=== PATIENT | male | born 1965 | race Caucasian/White ===

== ENCOUNTER 2019-07-29 08:40 | Inpatient (IN) | payer BC ==
--- NOTE | 2019-07-29 09:05 | EDM.PDOC ---
"ED HPI GENERAL MEDICAL PROBLEM - General Chief Complaint: Abdominal Pain Stated Complaint: LOWER LEFT SIDE PAIN Time Seen by Provider: 07/29/19 08:55 Source of Information: Reports: Patient, Old Records, RN, RN Notes Reviewed History Limitations: Reports: No Limitations - History of Present Illness INITIAL COMMENTS - FREE TEXT/NARRATIVE: Pt presents to ER from home by POV with c/o left sided abdominal pain x4 days. The pain has been getting progressively worse. He denies blood or mucus in the stool, fever, chills, N/V/D/C, dysuria, hematuria, or flank pain. Pt reports he was admitted to a hospital in [facility] a couple of weeks ago where he was treated for pneumonia. He states that he tested negative for Covid virus at that time. He admits that he has had increasing shortness of breath today, and for the last few days he can hear his lungs crackle when he exhales. He reports Hx of DM Type 2, CAD, HTN, obesity, testicular cancer, diverticulitis, cholecystectomy, left orchectomy, exploratory abdominal laparotomy. Onset: Gradual Onset Date: 07/25/19 Duration: Constant, Getting Worse Location: Reports: Chest, Abdomen Quality: Reports: Ache Severity: Severe Improves with: Reports: Immobilization, Rest Worsens with: Reports: Movement Associated Symptoms: Reports: No Other Symptoms Left Lower Abdomen Pain Score (Numeric/FACES): 8 - Related Data Allergies Allergy/AdvReac Type Severity Reaction Status Date / Time morphine Allergy Severe unknown Verified 07/29/19 08:48 lisinopril Allergy Intermediate unknown Verified 07/29/19 08:48 contrast dye Allergy Severe unknown Uncoded 07/29/19 08:48 Home Meds: Home Meds metFORMIN HCl [Metformin HCl] 1,000 mg PO 07/20/19 [History] Clopidogrel Bisulfate [Clopidogrel] 75 mg PO DAILY 07/29/19 [History] Escitalopram [Lexapro] 10 mg PO DAILY 07/29/19 [History] Furosemide 40 mg PO DAILY 07/29/19 [History] Insulin Asp Prot/Insulin Asp [NovoLOG Mix 70-30] 60 unit SQ ASDIRECTED 07/29/19 [History] Isosorbide Mononitrate [Imdur] 30 mg PO DAILY 07/29/19 [History] LORazepam [Lorazepam] 1 mg PO DAILY 07/29/19 [History] Potassium Chloride 20 meq PO DAILY 07/29/19 [History] Rosuvastatin Calcium 20 mg PO DAILY 07/29/19 [History] Tamsulosin HCl 0.4 mg PO DAILY 07/29/19 [History] amLODIPine Besylate [Amlodipine Besylate] 10 mg PO DAILY 07/29/19 [History] Past Medical History HEENT History: Reports: Impaired Vision Cardiovascular History: Reports: Angina, CAD, High Cholesterol, Hypertension Gastrointestinal History: Reports: Cholelithiasis, Diverticulosis Genitourinary History: Reports: BPH, Prostate Disorder Psychiatric History: Reports: Anxiety, Depression Endocrine/Metabolic History: Reports: Diabetes, Type II, IDDM, Obesity/BMI 30+ Oncologic (Cancer) History: Reports: Other (See Below) (Testicular cancer, left testicle) - Past Surgical History GI Surgical History: Reports: Cholecystectomy, Other (See Below) (Exploratory laparotomy with lymph node biopsy) Male Surgical History: Reports: Other (See Below) (Left orchectomy) Social & Family History - Family History Family Medical History: Noncontributory - Alcohol Use Alcohol Use History: Yes Alcohol Use Frequency: Weekly - Recreational Drug Use Recreational Drug Use: No - Living Situation & Occupation Living situation: Reports: Single ED ROS GENERAL - Review of Systems Review Of Systems: Comprehensive ROS is negative, except as noted in HPI. ED EXAM, GI/ABD - Physical Exam Exam: See Below Exam Limited By: No Limitations General Appearance: Alert, WD/WN, No Apparent Distress, Obese, Other ( Uncomfortable appearing). No: Active Emesis Eyes: Bilateral: Normal Appearance (No scleral icterus) Throat/Mouth: Normal Inspection, Normal Lips, Normal Voice, No Airway Compromise Head: Atraumatic, Normocephalic Neck: Normal Inspection Respiratory/Chest: No Respiratory Distress, No Accessory Muscle Use, Chest Non- Tender, Crackles, Rales, Rhonchi. No: Wheezing, Stridor Cardiovascular: Regular Rate, Rhythm, Tachycardia GI/Abdominal Exam: Normal Bowel Sounds, Soft, No Distention, No Abnormal Bruit, Tender (Acutely tender to palpation at LUQ and LLQ), Other (Obese abdomen). No : Guarding, Rigid, Rebound (Male) Exam: Deferred Rectal (Males) Exam: Deferred Back Exam: Normal Inspection, Full Range of Motion Extremities: Normal Inspection Neurological: Alert, Oriented, Normal Gait, No Motor/Sensory Deficits Psychiatric: Normal Mood Skin Exam: Warm, Dry, Intact, Normal Color, No Rash Course - Vital Signs Last Recorded V/S: Last Vital Signs Temp 97.7 F 07/29/19 09:04 Pulse 106 H 07/29/19 12:04 Resp 20 07/29/19 09:04 BP 162/89 H 07/29/19 09:04 Pulse Ox 94 L 07/29/19 09:04 - Orders/Labs/Meds Orders: Active Orders 24 hr Category Date Time Status Blood Glucose Check, Bedside [RC] ONETIME Care 07/29/19 11:10 Active Peripheral IV Care [RC] . DIRECTED Care 07/29/19 09:19 Active RT Aerosol Therapy [] ASDIRECTED Care 07/29/19 11:42 Active Abdomen Pelvis wo Cont [CT] Urgent Exams 07/29/19 09:20 Taken Chest wo Cont [CT] Stat Exams 07/29/19 09:56 Ordered CULTURE BLOOD [BC] Stat Lab 07/29/19 09:14 Results CULTURE STREP A CONFIRMATION [] Stat Lab 07/29/19 11:33 Results STREP SCRN A RAPID W CULT CONF [] Stat Lab 07/29/19 11:33 Results Azithromycin [Zithromax] 500 mg Med 07/29/19 11:12 Active Sodium Chloride 0.9% [Normal Saline (AdvBag)] 250 ml IV ONETIME Sodium Chloride 0.9% [Saline Flush] Med 07/29/19 09:19 Active 10 ml FLUSH ASDIRECTED PRN Isolation [COMM] Routine Oth 07/29/19 10:59 Active Peripheral IV Insertion Adult [OM.PC] Stat Oth 07/29/19 09:18 Ordered Medication Orders Azithromycin 500 mg/ Sodium (Chloride) 250 mls @ 250 mls/hr IV ONETIME ONE Stop: 07/29/19 12:11 Last Admin: 07/29/19 11:22 Dose: 250 mls/hr Sodium Chloride (Saline Flush) 10 ml FLUSH ASDIRECTED PRN PRN Reason: Keep Vein Open Last Admin: 07/29/19 09:29 Dose: 10 ml Labs: Laboratory Tests 07/29/19 07/29/19 07/29/19 Range/Units 09:04 09:14 09:14 WBC 9.8 (5.0-10.0) 10^3/uL RBC 4.23 L (4.6-6.2) 10^6/uL Hgb 11.1 L (14.0-18.0) g/dL Hct 34.1 L (40.0-54.0) % MCV 80.6 (80-100) fL MCH 26.2 L (27.0-34.0) pg MCHC 32.6 L (33.0-35.0) g/dL Plt Count 325 (150-450) 10^3/uL Neut % (Auto) 78.5 H (42.2-75.2) % Lymph % (Auto) 9.9 L (20.5-50.1) % Bertie % (Auto) 8.9 H (2-8) % Eos % (Auto) 2.5 (1.0-3.0) % Baso % (Auto) 0.2 (0.0-1.0) % PT (9.0-12.0) SEC INR (0.9-1.2) APTT (22.0-34.0) SEC D-Dimer, Quantitative (0-400) ng/mL Sodium 134 L (136-145) mmol/L Potassium 4.4 (3.5-5.1) mmol/L Chloride 98 (98-107) mmol/L Carbon Dioxide 30 (21-32) mmol/L Anion Gap 10.4 (7-13) mEq/L BUN 26 H (7-18) mg/dL Creatinine 1.68 H (0.70-1.30) mg/dL Est Cr Clr Drug Dosing 44.31 mL/min Estimated GFR (MDRD) 42 BUN/Creatinine Ratio 15.5 (No establ ref range) Glucose 301 H (74-99) mg/dL Lactic Acid (0.4-2.0) mmol/L Calcium 8.7 (8.5-10.1) mg/dL Ferritin (26-388) mg/mL Total Bilirubin 0.3 (0.2-1.0) mg/dL AST 9 L (15-37) U/L ALT 14 L (16-63) U/L Alkaline Phosphatase 91 (46-116) U/L Lactate Dehydrogenase (85-227) U/L Creatine Kinase (39-308) U/L Troponin I (0.000-0.056) ng/mL C-Reactive Protein 14.6 H (0.0-0.9) mg/dL B-Natriuretic Peptide (0-100) pg/ml Total Protein 6.8 (6.4-8.2) g/dL Albumin 2.6 L (3.4-5.0) g/dL Globulin 4.2 Albumin/Globulin Ratio 0.62 Amylase 25 (25-115) U/L Lipase 89 (73-393) U/L Urine Color Yellow (YELLOW) Urine Appearance Slightly cloudy (CLEAR) Urine pH 6.0 (5.0-9.0) Ur Specific [place] 1.025 (1.005-1.030) Urine Protein >=300 H (NEGATIVE) Urine Glucose (UA) 500 H (NEGATIVE) Urine Ketones Negative (NEGATIVE) Urine Occult Blood Small H (NEGATIVE) Urine Nitrite Negative (NEGATIVE) Urine Bilirubin Negative (NEGATIVE) Urine Urobilinogen 0.2 (0.2-1.0) mg/dL Ur Leukocyte Esterase Negative (NEGATIVE) Urine RBC 5-10 H /HPF Urine WBC 0-5 (0-5/HPF) /HPF Ur Epithelial Cells Rare (NOT SEEN) /HPF Amorphous Sediment Rare (NOT SEEN) /HPF Urine Bacteria Rare (0-FEW/HPF) /HPF Urine Mucus Few H (NOT SEEN) /LPF Urine Yeast Occasional H (NOT SEEN) /HPF SARS-CoV-2 RNA (RT-PCR) (NEGATIVE) 07/29/19 07/29/19 07/29/19 Range/Units 09:14 09:14 09:14 WBC (5.0-10.0) 10^3/uL RBC (4.6-6.2) 10^6/uL Hgb (14.0-18.0) g/dL Hct (40.0-54.0) % MCV (80-100) fL MCH (27.0-34.0) pg MCHC (33.0-35.0) g/dL Plt Count (150-450) 10^3/uL Neut % (Auto) (42.2-75.2) % Lymph % (Auto) (20.5-50.1) % Bertie % (Auto) (2-8) % Eos % (Auto) (1.0-3.0) % Baso % (Auto) (0.0-1.0) % PT 9.5 (9.0-12.0) SEC INR 1.0 (0.9-1.2) APTT 27.9 (22.0-34.0) SEC D-Dimer, Quantitative 808 H (0-400) ng/mL Sodium (136-145) mmol/L Potassium (3.5-5.1) mmol/L Chloride (98-107) mmol/L Carbon Dioxide (21-32) mmol/L Anion Gap (7-13) mEq/L BUN (7-18) mg/dL Creatinine (0.70-1.30) mg/dL Est Cr Clr Drug Dosing mL/min Estimated GFR (MDRD) BUN/Creatinine Ratio (No establ ref range) Glucose (74-99) mg/dL Lactic Acid 0.9 (0.4-2.0) mmol/L Calcium (8.5-10.1) mg/dL Ferritin (26-388) mg/mL Total Bilirubin (0.2-1.0) mg/dL AST (15-37) U/L ALT (16-63) U/L Alkaline Phosphatase (46-116) U/L Lactate Dehydrogenase 138 (85-227) U/L Creatine Kinase (39-308) U/L Troponin I (0.000-0.056) ng/mL C-Reactive Protein (0.0-0.9) mg/dL B-Natriuretic Peptide (0-100) pg/ml Total Protein (6.4-8.2) g/dL Albumin (3.4-5.0) g/dL Globulin Albumin/Globulin Ratio Amylase (25-115) U/L Lipase (73-393) U/L Urine Color (YELLOW) Urine Appearance (CLEAR) Urine pH (5.0-9.0) Ur Specific [place] (1.005-1.030) Urine Protein (NEGATIVE) Urine Glucose (UA) (NEGATIVE) Urine Ketones (NEGATIVE) Urine Occult Blood (NEGATIVE) Urine Nitrite (NEGATIVE) Urine Bilirubin (NEGATIVE) Urine Urobilinogen (0.2-1.0) mg/dL Ur Leukocyte Esterase (NEGATIVE) Urine RBC /HPF Urine WBC (0-5/HPF) /HPF Ur Epithelial Cells (NOT SEEN) /HPF Amorphous Sediment (NOT SEEN) /HPF Urine Bacteria (0-FEW/HPF) /HPF Urine Mucus (NOT SEEN) /LPF Urine Yeast (NOT SEEN) /HPF SARS-CoV-2 RNA (RT-PCR) (NEGATIVE) 07/29/19 07/29/19 07/29/19 Range/Units 09:14 09:14 11:00 WBC (5.0-10.0) 10^3/uL RBC (4.6-6.2) 10^6/uL Hgb (14.0-18.0) g/dL Hct (40.0-54.0) % MCV (80-100) fL MCH (27.0-34.0) pg MCHC (33.0-35.0) g/dL Plt Count (150-450) 10^3/uL Neut % (Auto) (42.2-75.2) % Lymph % (Auto) (20.5-50.1) % Bertie % (Auto) (2-8) % Eos % (Auto) (1.0-3.0) % Baso % (Auto) (0.0-1.0) % PT (9.0-12.0) SEC INR (0.9-1.2) APTT (22.0-34.0) SEC D-Dimer, Quantitative (0-400) ng/mL Sodium (136-145) mmol/L Potassium (3.5-5.1) mmol/L Chloride (98-107) mmol/L Carbon Dioxide (21-32) mmol/L Anion Gap (7-13) mEq/L BUN (7-18) mg/dL Creatinine (0.70-1.30) mg/dL Est Cr Clr Drug Dosing mL/min Estimated GFR (MDRD) BUN/Creatinine Ratio (No establ ref range) Glucose (74-99) mg/dL Lactic Acid (0.4-2.0) mmol/L Calcium (8.5-10.1) mg/dL Ferritin 108 (26-388) mg/mL Total Bilirubin (0.2-1.0) mg/dL AST (15-37) U/L ALT (16-63) U/L Alkaline Phosphatase (46-116) U/L Lactate Dehydrogenase (85-227) U/L Creatine Kinase 60 (39-308) U/L Troponin I 0.017 (0.000-0.056) ng/mL C-Reactive Protein (0.0-0.9) mg/dL B-Natriuretic Peptide 336 H (0-100) pg/ml Total Protein (6.4-8.2) g/dL Albumin (3.4-5.0) g/dL Globulin Albumin/Globulin Ratio Amylase (25-115) U/L Lipase (73-393) U/L Urine Color (YELLOW) Urine Appearance (CLEAR) Urine pH (5.0-9.0) Ur Specific [place] (1.005-1.030) Urine Protein (NEGATIVE) Urine Glucose (UA) (NEGATIVE) Urine Ketones (NEGATIVE) Urine Occult Blood (NEGATIVE) Urine Nitrite (NEGATIVE) Urine Bilirubin (NEGATIVE) Urine Urobilinogen (0.2-1.0) mg/dL Ur Leukocyte Esterase (NEGATIVE) Urine RBC /HPF Urine WBC (0-5/HPF) /HPF Ur Epithelial Cells (NOT SEEN) /HPF Amorphous Sediment (NOT SEEN) /HPF Urine Bacteria (0-FEW/HPF) /HPF Urine Mucus (NOT SEEN) /LPF Urine Yeast (NOT SEEN) /HPF SARS-CoV-2 RNA (RT-PCR) Negative (NEGATIVE) Rapid Strep: negative Influenza A/B: negative Meds: Medications Generic Name Dose Route Start Last Admin Trade Name Freq PRN Reason Stop Dose Admin Azithromycin 500 mg/ Sodium 250 mls @ 250 mls/hr 07/29/19 11:12 07/29/19 11: 22 Chloride IV 07/29/19 12:11 250 mls/hr ONETIME ONE Administration Sodium Chloride 10 ml 07/29/19 09:19 07/29/19 09:29 Saline Flush FLUSH 10 ml ASDIRECTED PRN Administration Keep Vein Open Discontinued Medications Generic Name Dose Route Start Last Admin Trade Name Freq PRN Reason Stop Dose Admin Albuterol/Ipratropium 3 ml 07/29/19 11:42 07/29/19 12:02 Duoneb 3.0-0.5 Mg/3 Ml NEB 07/29/19 11:43 3 ml ONETIME ONE Administration Fentanyl 25 mcg 07/29/19 09:19 07/29/19 09:28 Sublimaze IVPUSH 07/29/19 09:20 25 mcg ONETIME ONE Administration Fentanyl 50 mcg 07/29/19 11:42 07/29/19 12:00 Sublimaze IVPUSH 07/29/19 11:43 50 mcg ONETIME ONE Administration Ceftriaxone Sodium 2 gm/ 100 mls @ 200 mls/hr 07/29/19 11:11 07/29/19 11:11 Sodium Chloride IV 07/29/19 11:40 200 mls/hr ONETIME ONE Administration Ondansetron HCl 4 mg 07/29/19 09:19 07/29/19 09:30 Zofran IV 07/29/19 09:20 4 mg ONETIME ONE Administration - Radiology Interpretation Free Text/Narrative:: [facility] Final Radiology Report Call: [phone] assistance Online chat: [email or web address] Name: ARMIN BROOKS Age: 54Years M Date: 07/29/2019 SSN: -- : [id number] Study: CT ABDOMEN/PELVIS WO Requesting Physician: MEET DA SILVA Images: [id number] Addl Studies: Provided Clinical History: Contrast: Without Contrast Medium: Contrast Amount: Contrast Method: Page 1 of 2 PROCEDURE INFORMATION: Exam: CT Abdomen And Pelvis Without Contrast Exam date and time: 07/29/2019 9:42 AM Age: 54 years old Clinical indication: Other: Left abdominal pain, HX diverticulitis, left testicular CA, left orchectomy, cholecystectomy, explore laparatomy with lymph node biopsy. TECHNIQUE: Imaging protocol: Computed tomography of the abdomen and pelvis without contrast. Radiation optimization: All CT scans at this facility use at least one of these dose optimization techniques: automated exposure control; mA and/or kV adjustment per patient size (includes targeted exams where dose is matched to clinical indication); or iterative reconstruction. COMPARISON: No relevant prior studies available. FINDINGS: Lungs: Infiltrates in the right upper and lower lobe and mild patchy infiltrate in the left lower lobe most concerning for multifocal pneumonia. Small bilateral pleural effusions. Liver: Normal. No mass. Gallbladder and bile ducts: By report patient has a history of cholecystectomy. Calcifications in the expected region of the gallbladder fossa measuring up to 1.6 cm, possibly representing residual stones. Pancreas: Normal. No ductal dilation. Spleen: Normal. No splenomegaly. Adrenals: Normal. No mass. Kidneys and ureters: Normal. No hydronephrosis. Stomach and bowel: Unremarkable. No obstruction. No mucosal thickening. Appendix: No evidence of appendicitis. ARMIN BROOKS | Final Radiology Report CONFIDENTIALITY STATEMENT This report is intended only for use by the referring physician, and only in accordance with law. If you received this in error, call [phone]. Page 2 of 2 Intraperitoneal space: Unremarkable. No free air. No significant fluid collection. Retroperitoneal space: Evidence of retroperitoneal lymph node dissection with multiple retroperitoneal clips. Vasculature: Unremarkable. No abdominal aortic aneurysm. Lymph nodes: Unremarkable. No enlarged lymph nodes. Bladder: Unremarkable as visualized. Reproductive: Unremarkable as visualized. Bones/joints: Unremarkable. No acute fracture. Soft tissues: Evidence of skin thickening up to 9 mm in the right mid and lower abdomen which may represent a cellulitis. IMPRESSION: 1. Infiltrates in the right upper and lower lobe and mild patchy infiltrate in the left lower lobe most concerning for multifocal pneumonia. Small bilateral pleural effusions. 2. Evidence of skin thickening up to 9 mm in the right mid and lower abdomen which may represent a cellulitis. 3. By report patient has a history of cholecystectomy. Calcifications in the expected region of the gallbladder fossa measuring up to 1.6 cm, possibly representing residual stones. 4. Remainder of findings as described above. Thank you for allowing us to participate in the care of your patient. Dictated and Authenticated by: Lashonda Gibbs MD 07/29/2019 10:10 AM Central Time ([place] & [place]) [facility] Final Radiology Report Call: [phone] assistance Online chat: [email or web address] Name: ARMIN BROOKS Age: 54Years M Date: 07/29/2019 SSN: -- : [id number] Study: CT CHEST WO Requesting Physician: MEET DA SILVA Images: [id number] Addl Studies: Provided Clinical History: Contrast: Without Contrast Medium: Contrast Amount: Contrast Method: Page 1 of 2 PROCEDURE INFORMATION: Exam: CT Chest Without Contrast Exam date and time: 07/29/2019 10:10 AM Age: 54 years old Clinical indication: Other: Abnormal RT lung on abd CT, remote HX testicular cancer TECHNIQUE: Imaging protocol: Computed tomography of the chest without contrast. Radiation optimization: All CT scans at this facility use at least one of these dose optimization techniques: automated exposure control; mA and/or kV adjustment per patient size (includes targeted exams where dose is matched to clinical indication); or iterative reconstruction. COMPARISON: No relevant prior studies available. FINDINGS: Lungs: Significant alveolar infiltrates in the right upper and right lower lobe with mild infiltrate in the left lower lobe, most compatible with multifocal pneumonia. Pleural space: Small bilateral pleural effusions. Heart: Unremarkable. No cardiomegaly. No pericardial effusion. Aorta: Aortic calcifications are present. Lymph nodes: Few subcentimeter mediastinal nodes. Gallbladder and bile ducts: Calcification in the region of the gallbladder fossa as discussed on abdominal CT. Bones/joints: Unremarkable. No acute fracture. Soft tissues: Unremarkable. Other findings: Retroperitoneal clips are partially imaged. IMPRESSION: ARMIN BROOKS | Final Radiology Report CONFIDENTIALITY STATEMENT This report is intended only for use by the referring physician, and only in accordance with law. If you received this in error, call [phone]. Page 2 of 2 1. Significant alveolar infiltrates in the right upper and right lower lobe with mild infiltrate in the left lower lobe, most compatible with multifocal pneumonia. 2. Small bilateral pleural effusions. 3. Remainder of findings as described above. Thank you for allowing us to participate in the care of your patient. Dictated and Authenticated by: Lashonda Gibbs MD 07/29/2019 10:36 AM Central Time ([place] & [place]) - Re-Assessments/Exams Free Text/Narrative Re-Assessment/Exam: 07/29/19 11:48 Pt's oxygen saturations were initially 92% to 94% on room air, but dropped at times to 82%. Chest x-ray and CT reported as multifocal B/L pneumonia. Today he was Covid negative for the second time in the past 30 days. Awaiting medical records from his recent hospital admission in [facility]. Plan to admit pt to Dr. Sheriff. Departure - Departure Time of Disposition: 12:00 (admitted to Dr. Sheriff) Disposition: Admitted As Inpatient 64 Condition: Fair, Undetermined Clinical Impression: Acute respiratory failure with hypoxia Pneumonia Qualifiers: Pneumonia type: due to unspecified organism Laterality: bilateral Lung location : unspecified part of lung Qualified Code(s): J18.9 - Pneumonia, unspecified organism Abdominal pain Qualifiers: Abdominal location: left lower quadrant Qualified Code(s): R10.32 - Left lower quadrant pain - Discharge Information *PRESCRIPTION DRUG MONITORING PROGRAM REVIEWED*: Not Applicable *COPY OF PRESCRIPTION DRUG MONITORING REPORT IN PATIENT [place]: Not Applicable Referrals: PCP,None [Primary Care Provider] - Forms: ED Department Discharge Sepsis Event Note - Evaluation Sepsis Screening Result: No Definite Risk - Focused Exam Vital Signs: Vital Signs Temp Pulse Resp BP Pulse Ox 07/29/19 12:04 106 H 07/29/19 09:04 97.7 F 99 20 162/89 H 94 L Date Exam was Performed: 07/29/19 Time Exam was Performed: 12:10 - My Orders Last 24 Hours: My Active Orders 07/29/19 09:14 CULTURE BLOOD [BC] Stat 07/29/19 09:18 Peripheral IV Insertion Adult [OM.PC] Stat 07/29/19 09:19 Peripheral IV Care [RC] . DIRECTED Sodium Chloride 0.9% [Saline Flush] 10 ml FLUSH ASDIRECTED PRN 07/29/19 09:20 Abdomen Pelvis wo Cont [CT] Urgent 07/29/19 09:56 Chest wo Cont [CT] Stat 07/29/19 10:59 Isolation [COMM] Routine 07/29/19 11:10 Blood Glucose Check, Bedside [RC] ONETIME 07/29/19 11:12 Azithromycin [Zithromax] 500 mg Sodium Chloride 0.9% [Normal Saline (AdvBag)] 250 ml IV ONETIME 07/29/19 11:33 CULTURE STREP A CONFIRMATION [] Stat STREP SCRN A RAPID W CULT CONF [] Stat 07/29/19 11:42 RT Aerosol Therapy [RC] ASDIRECTED - Assessment/Plan Last 24 Hours: My Active Orders 07/29/19 09:14 CULTURE BLOOD [BC] Stat 07/29/19 09:18 Peripheral IV Insertion Adult [OM.PC] Stat 07/29/19 09:19 Peripheral IV Care [RC] . DIRECTED Sodium Chloride 0.9% [Saline Flush] 10 ml FLUSH ASDIRECTED PRN 07/29/19 09:20 Abdomen Pelvis wo Cont [CT] Urgent 07/29/19 09:56 Chest wo Cont [CT] Stat 07/29/19 10:59 Isolation [COMM] Routine 07/29/19 11:10 Blood Glucose Check, Bedside [RC] ONETIME 07/29/19 11:12 Azithromycin [Zithromax] 500 mg Sodium Chloride 0.9% [Normal Saline (AdvBag)] 250 ml IV ONETIME 07/29/19 11:33 CULTURE STREP A CONFIRMATION [RM] Stat STREP SCRN A RAPID W CULT CONF [RM] Stat 07/29/19 11:42 RT Aerosol Therapy [RC] ASDIRECTED"
[2019-07-29] MEDS ORDERED: Ondansetron 4 MG/2 ML SDV IV ONE (09:19)
[2019-07-29] MEDS ORDERED: fentaNYL 100 MCG/2 ML SDV IVPUSH ONE ×3 (09:19→19:37)
[2019-07-29] MEDS: Sodium Chloride 0.9% 10 ML Syringe FLUSH PRN ×2 (09:29→14:23)
[2019-07-29 09:45] LABS: ANION GAP 10.4 mEq/L (7-13)
[2019-07-29] MEDS ORDERED: cefTRIAXone 2 GM in Sodium Chloride 0.9% 100 ML IV ONE (11:11)
[2019-07-29] MEDS ORDERED: Azithromycin 500 MG in Sodium Chloride 0.9% 250 ML IV ONE (11:12)
[2019-07-29 11:26] LABS: PTT,PARTIAL THROMBOPLSTIN TIME 27.9 SEC (22.0-34.0)
[2019-07-29] MEDS ORDERED: Albuterol/Ipratropium 3.0-0.5 MG/3 ML Neb Soln NEB ONE ×2 (11:42→19:00)
[2019-07-29] MEDS ORDERED: Docusate Sodium 100 MG Cap PO PRN (13:42)
[2019-07-29] MEDS ORDERED: Magnesium Hydroxide 400 MG/5 ML Susp 30 ML Cup PO PRN (13:42)
[2019-07-29] MEDS ORDERED: Ondansetron 4 MG Tab.DIS PO PRN (13:42)
[2019-07-29] MEDS ORDERED: oxyCODONE 5 MG Tab PO PRN (13:42)
[2019-07-29] MEDS ORDERED: Acetaminophen 325 MG Tab PO PRN (13:42)
[2019-07-29] MEDS ORDERED: Sodium Chloride 0.9% 1,000 ML IV SCH (13:45)
[2019-07-29] MEDS ORDERED: fentaNYL 100 MCG/2 ML SDV IVPUSH PRN (13:51)
--- NOTE | 2019-07-29 14:07 | PCM.HP ---
H&P History of Present Illness - General Date of Service: 07/29/19 Admit Problem/Dx: Admission Diagnosis/Problem Admission Diagnosis/Problem Pneumonia Source of Information: Patient History Limitations: Reports: No Limitations - History of Present Illness Initial Comments - Free Text/Narative: Jarvis is 54 y/o M with PMH of DM Type 2, CAD, HTN, HLD, BPH, obesity, h/o testicular cancer s/p left orchectomy and exploratory abdominal laparotomy. diverticulitis, h/o cholecystectomy. Patient presented to the ED for evaluation of left lower quadrant abdominal pain that started 3 days ago. Patient reports she has been well until above started. Left lower quadrant abdominal pain is sharp, 10/10 when severe, aggravated by movement or rolling over and relieved with rest. Pain radiates across to midline abdomen when he turns over. He denies flank pain. Pain does not radiate to the groin or testicle. He denies nausea, vomiting, hematemesis, hematochezia, melena. Denies epigastric pain. No previous history of similar. Patient reports he was recently admitted to [facility] for pneumonia. COVID-19 screen was negative. He however reports he was never treated with antibiotics. At the time of this evaluation patient denies fever, chills, cough, dysuria, hematuria. No chest pain or shortness of breath. Denies leg swelling or calf pains. No recent ill contacts. In the ED patient was noted to be hypoxic with O2 sats in the mid 80s. He was placed on 2 L oxygen via nasal cannula with improvement in his saturation. Vitals were unremarkable. Significant low BNP 336, creatinine 1.68. Other labs essentially unremarkable. CT chest concerning for multilobar pneumonia. CT abdomen and pelvis reveals no acute pathology. Patient received IV fluids, IV antibiotics and fentanyl in the ED. He is being admitted for further management. Onset of Symptoms: Reports: Gradual Duration of Symptoms: Reports: Day(s): Location: Reports: Abdomen Quality: Reports: Sharp Severity: Severe Improves with: Reports: Rest Worsens with: Reports: Movement Context: Reports: Activity/Exercise Associated Symptoms: Reports: No Other Symptoms Left Lower Abdomen Pain Score (Numeric/FACES): 8 - Related Data Allergies/Adverse Reactions: Allergies Allergy/AdvReac Type Severity Reaction Status Date / Time morphine Allergy Severe unknown Verified 07/29/19 13:05 lisinopril Allergy Intermediate unknown Verified 07/29/19 13:05 contrast dye Allergy Severe unknown Uncoded 07/29/19 13:05 Home Medications: Home Meds metFORMIN HCl [Metformin HCl] 1,000 mg PO BID 07/20/19 [History] Aspirin 81 mg PO DAILY 07/29/19 [History] Cholecalciferol (Vitamin D3) [Vitamin D3] 2,000 unit PO BID 07/29/19 [History] Clopidogrel Bisulfate [Clopidogrel] 75 mg PO DAILY 07/29/19 [History] Escitalopram [Lexapro] 10 mg PO DAILY 07/29/19 [History] Furosemide 40 mg PO DAILY 07/29/19 [History] Insulin Asp Prot/Insulin Asp [NovoLOG Mix 70-30] 60 unit SQ ASDIRECTED 07/29/19 [History] Isosorbide Mononitrate [Imdur] 30 mg PO DAILY 07/29/19 [History] LORazepam [Lorazepam] 1 mg PO DAILY 07/29/19 [History] Potassium Chloride 20 meq PO DAILY 07/29/19 [History] Rosuvastatin Calcium 20 mg PO DAILY 07/29/19 [History] Tamsulosin HCl 0.4 mg PO DAILY 07/29/19 [History] amLODIPine Besylate [Amlodipine Besylate] 10 mg PO DAILY 07/29/19 [History] carvediloL [Carvedilol] 12.5 mg PO BID 07/29/19 [History] Past Medical History HEENT History: Reports: Impaired Vision Cardiovascular History: Reports: Angina, CAD, Heart Failure, High Cholesterol, Hypertension, Stents Respiratory History: Reports: Pneumonia, Recurrent Gastrointestinal History: Reports: Cholelithiasis, Diverticulosis Genitourinary History: Reports: BPH, Prostate Disorder Musculoskeletal History: Reports: Arthritis Neurological History: Reports: None Psychiatric History: Reports: Anxiety, Depression Endocrine/Metabolic History: Reports: Diabetes, Type II, IDDM, Obesity/BMI 30+ Hematologic History: Reports: Anemia Immunologic History: Reports: None Oncologic (Cancer) History: Reports: Other (See Below) Other Oncologic History: Lymphatic and testicular Dermatologic History: Reports: None - Infectious Disease History Infectious Disease History: Reports: MRSA - Past Surgical History Head Surgeries/Procedures: Reports: None GI Surgical History: Reports: Cholecystectomy Social & Family History - Family History Family Medical History: Noncontributory - Tobacco Use Smoking Status *Q: Never Smoker Second Hand Smoke Exposure: No - Caffeine Use Caffeine Use: Reports: Energy Drinks - Alcohol Use Days Per Week of Alcohol Use: 2 Number of Drinks Per Day: 5 Total Drinks Per Week: 10 - Recreational Drug Use Recreational Drug Use: No - Living Situation & Occupation Living situation: Reports: Single H&P Review of Systems - Review of Systems: Review Of Systems: See Below General: Reports: No Symptoms HEENT: Reports: No Symptoms Pulmonary: Reports: No Symptoms Cardiovascular: Reports: No Symptoms Gastrointestinal: Reports: Abdominal Pain Genitourinary: Reports: No Symptoms Musculoskeletal: Reports: No Symptoms Skin: Reports: No Symptoms Psychiatric: Reports: No Symptoms Neurological: Reports: No Symptoms Hematologic/Lymphatic: Reports: No Symptoms Immunologic: Reports: No Symptoms Exam - Exam Exam: See Below - Vital Signs Vital Signs: Last Vital Signs Temp 97.7 F 07/29/19 09:04 Pulse 104 H 07/29/19 12:51 Resp 20 07/29/19 12:51 BP 134/81 07/29/19 12:51 Pulse Ox 90 L 07/29/19 12:51 Weight: 232 lb 3.2 oz - Exam Quality Assessment: Supplemental Oxygen, DVT Prophylaxis General: Alert, Oriented, 4 HEENT: PERRLA, Hearing Intact, Mucosa Moist & [place], Nares Patent, Normal Nasal Septum, Posterior Pharynx Clear, Conjunctiva Clear, EOMI, EACs Clear, TMs Clear Neck: Supple, Trachea Midline, 2 Lungs: Clear to Auscultation, Normal Respiratory Effort Cardiovascular: Regular Rate, Regular Rhythm GI/Abdominal Exam: Soft, Tender, Other (Soft, tenderness to LLQ, no guarding, RT , para-incisional hernia noted) (Male) Exam: No Hernia, Normal Inspection, Normal Prostate, Circumcised Rectal (Males) Exam: Deferred Back Exam: Normal Inspection, Full Range of Motion, NT Extremities: Normal Inspection, Normal Range of Motion, Non-Tender, No Pedal Edema, Normal Capillary Refill Skin: Warm, Dry, Intact Neurological: Cranial Nerves Intact, Reflexes Equal Bilateral Neuro Extensive - Mental Status: Alert, Oriented x3, Normal Mood/Affect, Normal Cognition Neuro Extensive - Motor, Sensory, Reflexes: CN II-XII Intact, Normal Gait, Normal Reflexes Psychiatric: Alert, Normal Affect, Normal Mood - Patient Data Lab Results Last 24 hrs: Laboratory Results - last 24 hr 07/29/19 07/29/19 07/29/19 Range/Units 09:04 09:14 09:14 WBC 9.8 (5.0-10.0) 10^3/uL RBC 4.23 L (4.6-6.2) 10^6/uL Hgb 11.1 L (14.0-18.0) g/dL Hct 34.1 L (40.0-54.0) % MCV 80.6 (80-100) fL MCH 26.2 L (27.0-34.0) pg MCHC 32.6 L (33.0-35.0) g/dL Plt Count 325 (150-450) 10^3/uL Neut % (Auto) 78.5 H (42.2-75.2) % Lymph % (Auto) 9.9 L (20.5-50.1) % [place] % (Auto) 8.9 H (2-8) % Eos % (Auto) 2.5 (1.0-3.0) % Baso % (Auto) 0.2 (0.0-1.0) % PT (9.0-12.0) SEC INR (0.9-1.2) APTT (22.0-34.0) SEC D-Dimer, Quantitative (0-400) ng/mL Sodium 134 L (136-145) mmol/L Potassium 4.4 (3.5-5.1) mmol/L Chloride 98 (98-107) mmol/L Carbon Dioxide 30 (21-32) mmol/L Anion Gap 10.4 (7-13) mEq/L BUN 26 H (7-18) mg/dL Creatinine 1.68 H (0.70-1.30) mg/dL Est Cr Clr Drug Dosing 44.31 mL/min Estimated GFR (MDRD) 42 BUN/Creatinine Ratio 15.5 (No establ ref range) Glucose 301 H (74-99) mg/dL Lactic Acid (0.4-2.0) mmol/L Calcium 8.7 (8.5-10.1) mg/dL Ferritin (26-388) mg/mL Total Bilirubin 0.3 (0.2-1.0) mg/dL AST 9 L (15-37) U/L ALT 14 L (16-63) U/L Alkaline Phosphatase 91 (46-116) U/L Lactate Dehydrogenase (85-227) U/L Creatine Kinase (39-308) U/L Troponin I (0.000-0.056) ng/mL C-Reactive Protein 14.6 H (0.0-0.9) mg/dL B-Natriuretic Peptide (0-100) pg/ml Total Protein 6.8 (6.4-8.2) g/dL Albumin 2.6 L (3.4-5.0) g/dL Globulin 4.2 Albumin/Globulin Ratio 0.62 Amylase 25 (25-115) U/L Lipase 89 (73-393) U/L Urine Color Yellow (YELLOW) Urine Appearance Slightly cloudy (CLEAR) Urine pH 6.0 (5.0-9.0) Ur Specific [place] 1.025 (1.005-1.030) Urine Protein >=300 H (NEGATIVE) Urine Glucose (UA) 500 H (NEGATIVE) Urine Ketones Negative (NEGATIVE) Urine Occult Blood Small H (NEGATIVE) Urine Nitrite Negative (NEGATIVE) Urine Bilirubin Negative (NEGATIVE) Urine Urobilinogen 0.2 (0.2-1.0) mg/dL Ur Leukocyte Esterase Negative (NEGATIVE) Urine RBC 5-10 H /HPF Urine WBC 0-5 (0-5/HPF) /HPF Ur Epithelial Cells Rare (NOT SEEN) /HPF Amorphous Sediment Rare (NOT SEEN) /HPF Urine Bacteria Rare (0-FEW/HPF) /HPF Urine Mucus Few H (NOT SEEN) /LPF Urine Yeast Occasional H (NOT SEEN) /HPF SARS-CoV-2 RNA (RT-PCR) (NEGATIVE) 07/29/19 07/29/19 07/29/19 Range/Units 09:14 09:14 09:14 WBC (5.0-10.0) 10^3/uL RBC (4.6-6.2) 10^6/uL Hgb (14.0-18.0) g/dL Hct (40.0-54.0) % MCV (80-100) fL MCH (27.0-34.0) pg MCHC (33.0-35.0) g/dL Plt Count (150-450) 10^3/uL Neut % (Auto) (42.2-75.2) % Lymph % (Auto) (20.5-50.1) % [place] % (Auto) (2-8) % Eos % (Auto) (1.0-3.0) % Baso % (Auto) (0.0-1.0) % PT 9.5 (9.0-12.0) SEC INR 1.0 (0.9-1.2) APTT 27.9 (22.0-34.0) SEC D-Dimer, Quantitative 808 H (0-400) ng/mL Sodium (136-145) mmol/L Potassium (3.5-5.1) mmol/L Chloride (98-107) mmol/L Carbon Dioxide (21-32) mmol/L Anion Gap (7-13) mEq/L BUN (7-18) mg/dL Creatinine (0.70-1.30) mg/dL Est Cr Clr Drug Dosing mL/min Estimated GFR (MDRD) BUN/Creatinine Ratio (No establ ref range) Glucose (74-99) mg/dL Lactic Acid 0.9 (0.4-2.0) mmol/L Calcium (8.5-10.1) mg/dL Ferritin (26-388) mg/mL Total Bilirubin (0.2-1.0) mg/dL AST (15-37) U/L ALT (16-63) U/L Alkaline Phosphatase (46-116) U/L Lactate Dehydrogenase 138 (85-227) U/L Creatine Kinase (39-308) U/L Troponin I (0.000-0.056) ng/mL C-Reactive Protein (0.0-0.9) mg/dL B-Natriuretic Peptide (0-100) pg/ml Total Protein (6.4-8.2) g/dL Albumin (3.4-5.0) g/dL Globulin Albumin/Globulin Ratio Amylase (25-115) U/L Lipase (73-393) U/L Urine Color (YELLOW) Urine Appearance (CLEAR) Urine pH (5.0-9.0) Ur Specific [place] (1.005-1.030) Urine Protein (NEGATIVE) Urine Glucose (UA) (NEGATIVE) Urine Ketones (NEGATIVE) Urine Occult Blood (NEGATIVE) Urine Nitrite (NEGATIVE) Urine Bilirubin (NEGATIVE) Urine Urobilinogen (0.2-1.0) mg/dL Ur Leukocyte Esterase (NEGATIVE) Urine RBC /HPF Urine WBC (0-5/HPF) /HPF Ur Epithelial Cells (NOT SEEN) /HPF Amorphous Sediment (NOT SEEN) /HPF Urine Bacteria (0-FEW/HPF) /HPF Urine Mucus (NOT SEEN) /LPF Urine Yeast (NOT SEEN) /HPF SARS-CoV-2 RNA (RT-PCR) (NEGATIVE) 07/29/19 07/29/19 07/29/19 Range/Units 09:14 09:14 11:00 WBC (5.0-10.0) 10^3/uL RBC (4.6-6.2) 10^6/uL Hgb (14.0-18.0) g/dL Hct (40.0-54.0) % MCV (80-100) fL MCH (27.0-34.0) pg MCHC (33.0-35.0) g/dL Plt Count (150-450) 10^3/uL Neut % (Auto) (42.2-75.2) % Lymph % (Auto) (20.5-50.1) % [place] % (Auto) (2-8) % Eos % (Auto) (1.0-3.0) % Baso % (Auto) (0.0-1.0) % PT (9.0-12.0) SEC INR (0.9-1.2) APTT (22.0-34.0) SEC D-Dimer, Quantitative (0-400) ng/mL Sodium (136-145) mmol/L Potassium (3.5-5.1) mmol/L Chloride (98-107) mmol/L Carbon Dioxide (21-32) mmol/L Anion Gap (7-13) mEq/L BUN (7-18) mg/dL Creatinine (0.70-1.30) mg/dL Est Cr Clr Drug Dosing mL/min Estimated GFR (MDRD) BUN/Creatinine Ratio (No establ ref range) Glucose (74-99) mg/dL Lactic Acid (0.4-2.0) mmol/L Calcium (8.5-10.1) mg/dL Ferritin 108 (26-388) mg/mL Total Bilirubin (0.2-1.0) mg/dL AST (15-37) U/L ALT (16-63) U/L Alkaline Phosphatase (46-116) U/L Lactate Dehydrogenase (85-227) U/L Creatine Kinase 60 (39-308) U/L Troponin I 0.017 (0.000-0.056) ng/mL C-Reactive Protein (0.0-0.9) mg/dL B-Natriuretic Peptide 336 H (0-100) pg/ml Total Protein (6.4-8.2) g/dL Albumin (3.4-5.0) g/dL Globulin Albumin/Globulin Ratio Amylase (25-115) U/L Lipase (73-393) U/L Urine Color (YELLOW) Urine Appearance (CLEAR) Urine pH (5.0-9.0) Ur Specific [place] (1.005-1.030) Urine Protein (NEGATIVE) Urine Glucose (UA) (NEGATIVE) Urine Ketones (NEGATIVE) Urine Occult Blood (NEGATIVE) Urine Nitrite (NEGATIVE) Urine Bilirubin (NEGATIVE) Urine Urobilinogen (0.2-1.0) mg/dL Ur Leukocyte Esterase (NEGATIVE) Urine RBC /HPF Urine WBC (0-5/HPF) /HPF Ur Epithelial Cells (NOT SEEN) /HPF Amorphous Sediment (NOT SEEN) /HPF Urine Bacteria (0-FEW/HPF) /HPF Urine Mucus (NOT SEEN) /LPF Urine Yeast (NOT SEEN) /HPF SARS-CoV-2 RNA (RT-PCR) Negative (NEGATIVE) Result Diagrams: 07/29/19 09:14 07/29/19 09:14 Tomas Results Last 24 hrs: Microbiology 07/29/19 11:33 Influenza Type A Antigen Screen - Final Nasal, Unspecified NEGATIVE INFLUENZA A VIRUS AG REFERENCE RANGE: NEGATIVE Influenza Type B Antigen Screen - Final NEGATIVE INFLUENZA B VIRUS AG REFERENCE RANGE: NEGATIVE 07/29/19 11:33 Group A Streptococcus Rapid Screen - Final Throat NEGATIVE STREP A SCREEN REFERENCE RANGE: NEGATIVE 07/29/19 09:14 Anaerobic Blood Culture - Final Blood - Problem List (1) Acute abdominal complaint SNOMED Code(s): 824781959, 102364523 ICD Code: R10.0 - ACUTE ABDOMEN Status: Acute Current Visit: Yes (2) Multilobar lung infiltrate SNOMED Code(s): 5118243054889 ICD Code: R91.8 - OTHER NONSPECIFIC ABNORMAL FINDING OF LUNG FIELD Status: Acute Current Visit: Yes Problem List Initiated/Reviewed/Updated: Yes Orders Last 24hrs: Active Orders 24 hr Category Date Time Status Admission Diagnosis [ADT] Routine ADT 07/29/19 12:27 Ordered Patient Status [ADT] Routine ADT 07/29/19 12:27 Active Ambulate [RC] ASDIRECTED Care 07/29/19 13:42 Ordered Blood Glucose Check, Bedside [RC] ONETIME Care 07/29/19 11:10 Active Height and Weight [RC] DAILY Care 07/29/19 13:42 Ordered Intake and Output [RC] QSHIFT Care 07/29/19 13:43 Ordered Notify Provider Vital Signs [RC] ASDIRECTED Care 07/29/19 13:43 Ordered Oxygen Therapy [RC] PRN Care 07/29/19 13:42 Ordered Peripheral IV Care [RC] Care 07/29/19 09:19 Active RT Aerosol Therapy [RC] ASDIRECTED Care 07/29/19 11:42 Active VTE/DVT Education [RC] PER UNIT ROUTINE Care 07/29/19 13:42 Ordered Vital Signs [RC] Q4H Care 07/29/19 13:42 Ordered Consistent Carbohydrate Diet [DIET] Diet 07/29/19 Dinner Ordered Abdomen Pelvis wo Cont [CT] Urgent Exams 07/29/19 09:20 Taken Chest wo Cont [CT] Stat Exams 07/29/19 09:56 Taken BASIC METABOLIC PANEL,BMP [CHEM] DAILY Lab 07/30/19 07:00 Ordered BASIC METABOLIC PANEL,BMP [CHEM] DAILY Lab 07/31/19 07:00 Ordered BASIC METABOLIC PANEL,BMP [CHEM] DAILY Lab 08/01/19 07:00 Ordered CBC W/O DIFF,HEMOGRAM [HEME] DAILY Lab 07/30/19 07:00 Ordered CBC W/O DIFF,HEMOGRAM [HEME] DAILY Lab 07/31/19 07:00 Ordered CBC W/O DIFF,HEMOGRAM [HEME] DAILY Lab 08/01/19 07:00 Ordered CULTURE BLOOD [BC] Stat Lab 07/29/19 09:14 Results CULTURE STREP A CONFIRMATION [RM] Stat Lab 07/29/19 11:33 Results MAGNESIUM [CHEM] Routine Lab 07/29/19 13:42 Ordered PHOSPHORUS [CHEM] Routine Lab 07/29/19 13:42 Ordered STREP SCRN A RAPID W CULT CONF [RM] Stat Lab 07/29/19 11:33 Results Acetaminophen [Tylenol] Med 07/29/19 13:42 Ordered 650 mg PO Q4H PRN Aspirin Med 07/30/19 09:00 Ordered 81 mg PO DAILY Cholecalciferol (Vitamin D3) [Vitamin D3] Med 07/29/19 21:00 Ordered 2,000 unit PO BID Clopidogrel [Plavix] Med 07/30/19 09:00 Ordered 75 mg PO DAILY Docusate Sodium [Colace] Med 07/29/19 13:42 Ordered 100 mg PO BID PRN Enoxaparin [Lovenox] Med 07/30/19 09:00 Ordered 40 mg SUBCUT DAILY Escitalopram [Lexapro] Med 07/30/19 09:00 Ordered 10 mg PO DAILY Furosemide [Lasix] Med 07/30/19 09:00 Ordered 40 mg PO DAILY Isosorbide Mononitrate [Imdur] Med 07/30/19 09:00 Ordered 30 mg PO DAILY LORazepam [Ativan] Med 07/30/19 09:00 Ordered 1 mg PO DAILY Magnesium Hydroxide [Milk of Magnesia] Med 07/29/19 13:42 Ordered 30 ml PO Q12H PRN Ondansetron [Zofran ODT] Med 07/29/19 13:42 Ordered 4 mg PO Q6H PRN Rosuvastatin Calcium [Rosuvastatin Calcium] Med 07/30/19 09:00 Ordered 20 mg PO DAILY Sodium Chloride 0.9% [Normal Saline] 1,000 ml Med 07/29/19 13:45 Ordered IV ASDIRECTED Sodium Chloride 0.9% [Saline Flush] Med 07/29/19 09:19 Active 10 ml FLUSH ASDIRECTED PRN Tamsulosin [Flomax] Med 07/30/19 09:00 Ordered 0.4 mg PO DAILY amLODIPine Besylate [Amlodipine Besylate] Med 07/30/19 09:00 Ordered 10 mg PO DAILY carvediloL [Carvedilol] Med 07/29/19 21:00 Ordered 12.5 mg PO BID fentaNYL [Sublimaze] Med 07/29/19 13:51 Ordered 25 mcg IVPUSH Q4H PRN oxyCODONE Med 07/29/19 13:42 Ordered 5 mg PO Q8H PRN Isolation [COMM] Routine Oth 07/29/19 10:59 Active Peripheral IV Insertion Adult [OM.PC] Stat Oth 07/29/19 09:18 Ordered Resuscitation Status Routine Resus Stat 07/29/19 13:42 Ordered Medication Orders Acetaminophen (Tylenol) 650 mg PO Q4H PRN PRN Reason: Pain (Mild 1-3)/fever Amlodipine Besylate (Norvasc) 10 mg PO DAILY [facility] Aspirin (Aspirin) 81 mg PO DAILY [facility] Carvedilol (Coreg) 12.5 mg PO BID [facility] Cholecalciferol (Vitamin D3) 50 mcg PO BID [facility] Clopidogrel Bisulfate (Plavix) 75 mg PO DAILY [facility] Docusate Sodium (Colace) 100 mg PO BID PRN PRN Reason: Constipation Enoxaparin Sodium (Lovenox) 40 mg SUBCUT DAILY [facility] Escitalopram Oxalate (Lexapro) 10 mg PO DAILY [facility] Fentanyl (Sublimaze) 25 mcg IVPUSH Q4H PRN PRN Reason: Abdominal Pain Furosemide (Lasix) 40 mg PO DAILY [facility] Sodium Chloride (Normal Saline) 1,000 mls @ 75 mls/hr IV ASDIRECTED [facility] Isosorbide Mononitrate (Imdur) 30 mg PO DAILY [facility] Lorazepam (Ativan) 1 mg PO DAILY [facility] Magnesium Hydroxide (Milk Of Magnesia) 30 ml PO Q12H PRN PRN Reason: Constipation Ondansetron HCl (Zofran Odt) 4 mg PO Q6H PRN PRN Reason: nausea, able to take PO Oxycodone HCl (Oxycodone) 5 mg PO Q8H PRN PRN Reason: Pain (Moderate 7-10) Rosuvastatin Calcium (Crestor) 20 mg PO DAILY [facility] Sodium Chloride (Saline Flush) 10 ml FLUSH ASDIRECTED PRN PRN Reason: Keep Vein Open Last Admin: 07/29/19 09:29 Dose: 10 ml Tamsulosin HCl (Flomax) 0.4 mg PO DAILY [facility] Assessment/Plan Comment:: #Acute left lower quadrant abdominal pain. Etiology not clear -She presented with left lower quadrant abdominal pain that started 4 days ago -Left lower quadrant tenderness noted on exam -CT abdomen no acute pathology noted -Patient denies nausea, vomiting, melena, hematochezia, hematemesis -Admit to medical floor -Monitor vitals -Pain control with oxycodone, fentanyl as needed -Zofran PRN for nausea vomiting -IV fluids #Community-acquired pneumonia -CT chest showing multi-lobar infiltrate -COVID-19 PCR negative -Continue for Gram stain and culture -Blood culture -IV is on azithromycin #Acute bradycardia failure with hypoxia due to above -Currently on 2 L and saturating well -Continue supplemental oxygen and wean off as able #Elevated BNP -Patient euvolemic on exam -Echo if available -Daily weights -Strict I/O's #CAD -No acute issues -Continue home medication #Hypertension -BP within acceptable limits -Continue home medication -Monitor BP closely #Type 2 diabetes -Continue home insulin regimen -Accu-Cheks -Hypoglycemic protocol #Hyperlipidemia -Continue statin #BPH -Continue Home medication #Chronic anemia -Hemoglobin globin currently stable -Patient scheduled for outpatient colonoscopy -Monitor H&H closely #DVT prophylaxis -Lovenox #Full code
[2019-07-29] MEDS ORDERED: HYDROmorphone 2 MG Tab PO PRN (14:36)
[2019-07-29] MEDS ORDERED: Patient's Own Medication 1 Each SUBCUT SCH (18:00)
[2019-07-29] MEDS ORDERED: Metoprolol Tartrate 5 MG/5 ML SDV IVPUSH ONE (18:59)
[2019-07-29] MEDS ORDERED: Furosemide 40 MG/4 ML VIAL IVPUSH ONE (19:02)
[2019-07-29] MEDS ORDERED: Metoprolol Tartrate 5 MG/5 ML SDV ONE (19:04)
[2019-07-29] MEDS ORDERED: Albuterol/Ipratropium 3.0-0.5 MG/3 ML Neb Soln ONE (19:04)
[2019-07-29] MEDS ORDERED: Furosemide 40 MG/4 ML VIAL ONE (19:05)
[2019-07-29] MEDS ORDERED: Magnesium Sulfate/D5W 2 GM in Premix Bag 1 BAG IV ONE (19:17)
[2019-07-29] MEDS ORDERED: Magnesium Sulfate/Water 50 ML ONE (19:35)
--- NOTE | 2019-07-29 20:02 | PCM.DCSUM1 ---
Discharge Summary - Hospital Course Free Text/Narrative:: Jarvis is 54 y/o M with PMH of DM Type 2, CAD, HTN, HLD, BPH, obesity, h/o testicular cancer s/p left orchectomy and exploratory abdominal laparotomy. diverticulitis, h/o cholecystectomy. Patient presented to the ED for evaluation of left lower quadrant abdominal pain that started 3 days ago. Patient reports she has been well until above started. Left lower quadrant abdominal pain is sharp, 10/10 when severe, aggravated by movement or rolling over and relieved with rest. Pain radiates across to midline abdomen when he turns over. He denies flank pain. Pain does not radiate to the groin or testicle. He denies nausea, vomiting, hematemesis, hematochezia, melena. Denies epigastric pain. No previous history of similar pain. Patient reports he was recently admitted to [facility] for pneumonia. COVID-19 screen was negative. He however reports he was never treated with antibiotics. At the time of this evaluation patient denies fever, chills, cough, dysuria, hematuria. No chest pain or shortness of breath. Denies leg swelling or calf pains. No recent ill contacts. In the ED patient was noted to be hypoxic with O2 sats in the mid 80s. He was placed on 2 L oxygen via nasal cannula with improvement in his saturation. Vitals were unremarkable. Significant low BNP 336, creatinine 1.68. Other labs essentially unremarkable. CT chest concerning for multilobar pneumonia. CT abdomen and pelvis reveals no acute pathology. Patient received IV fluids, IV antibiotics and fentanyl in the ED. He is being admitted for sepsis due to multi-lobar PNA further management. Patient has noted improved since admission. His SOB is getting worse. Hypoxia is getting worse and he is requiring more supplemental oxygen. I poke with Dr Grajeda at [facility] and has agreed to accept patient. Patient was transferred to [facility]. Assessment/Plan Comment:: #Acute left lower quadrant abdominal pain. Etiology not clear -She presented with left lower quadrant abdominal pain that started 4 days ago -Left lower quadrant tenderness noted on exam -CT abdomen no acute pathology noted -Patient denies nausea, vomiting, melena, hematochezia, hematemesis -Admit to medical floor -Monitor vitals -Pain control with oxycodone, fentanyl as needed -Zofran PRN for nausea vomiting -IV fluids #Community-acquired pneumonia -CT chest showing multi-lobar infiltrate -COVID-19 PCR negative -Continue for Gram stain and culture -Blood culture -IV is on azithromycin #Acute respiratory failure with hypoxia due to above -Currently on 2 L and saturating well -Continue supplemental oxygen and wean off as able #Elevated BNP -Patient euvolemic on exam -Echo if available -Daily weights -Strict I/O's #CAD -No acute issues -Continue home medication #Hypertension -BP within acceptable limits -Continue home medication -Monitor BP closely #Type 2 diabetes -Continue home insulin regimen -Accu-Cheks -Hypoglycemic protocol #Hyperlipidemia -Continue statin #BPH -Continue Home medication #Chronic anemia -Hemoglobin globin currently stable -Patient scheduled for outpatient colonoscopy -Monitor H&H closely #DVT prophylaxis -Lovenox #Full code Diagnosis: Stroke: No - Discharge Data Discharge Date: 07/29/19 Discharge Disposition: DC/Tfer to Acute Hospital 02 Condition: Stable - Referral to Home Health Primary Care Physician: PCP None - Discharge Diagnosis/Problem(s) (1) Acute abdominal complaint SNOMED Code(s): 747198215, 776905904 ICD Code: R10.0 - ACUTE ABDOMEN Status: Acute Current Visit: Yes (2) Multilobar lung infiltrate SNOMED Code(s): 2620237980195 ICD Code: R91.8 - OTHER NONSPECIFIC ABNORMAL FINDING OF LUNG FIELD Status: Acute Current Visit: Yes - Discharge Plan *PRESCRIPTION DRUG MONITORING PROGRAM REVIEWED*: Not Applicable *COPY OF PRESCRIPTION DRUG MONITORING REPORT IN PATIENT [place]: Not Applicable Home Medications: Home Meds metFORMIN HCl [Metformin HCl] 1,000 mg PO BID 07/20/19 [History] Aspirin 81 mg PO DAILY 07/29/19 [History] Cholecalciferol (Vitamin D3) [Vitamin D3] 2,000 unit PO BID 07/29/19 [History] Clopidogrel Bisulfate [Clopidogrel] 75 mg PO DAILY 07/29/19 [History] Escitalopram [Lexapro] 10 mg PO DAILY 07/29/19 [History] Furosemide 40 mg PO DAILY 07/29/19 [History] Insulin Asp Prot/Insulin Asp [NovoLOG Mix 70-30] See Protocol SQ BID 07/29/19 [ History] Isosorbide Mononitrate [Imdur] 30 mg PO DAILY 07/29/19 [History] LORazepam [Lorazepam] 1 mg PO DAILY 07/29/19 [History] Potassium Chloride 20 meq PO DAILY 07/29/19 [History] Rosuvastatin Calcium 20 mg PO DAILY 07/29/19 [History] Tamsulosin HCl 0.4 mg PO DAILY 07/29/19 [History] amLODIPine Besylate [Amlodipine Besylate] 10 mg PO DAILY 07/29/19 [History] carvediloL [Carvedilol] 12.5 mg PO BID 07/29/19 [History] Oxygen Therapy Mode: Nasal Cannula Forms: ED Department Discharge Referrals: PCP,None [Primary Care Provider] - - Discharge Summary/Plan Comment DC Time >30 min.: Yes - General Info Date of Service: 07/29/19 Admission Dx/Problem (Free Text: Admission Diagnosis/Problem Admission Diagnosis/Problem Pneumonia Functional Status: Reports: Pain Controlled - Review of Systems General: Reports: No Symptoms HEENT: Reports: No Symptoms Pulmonary: Reports: No Symptoms Cardiovascular: Reports: No Symptoms Gastrointestinal: Reports: No Symptoms Genitourinary: Reports: No Symptoms Musculoskeletal: Reports: No Symptoms Skin: Reports: No Symptoms Neurological: Reports: No Symptoms Psychiatric: Reports: No Symptoms - Patient Data Vitals - Most Recent: Last Vital Signs Temp 97.7 F 07/29/19 09:04 Pulse 104 H 07/29/19 12:51 Resp 20 07/29/19 12:51 BP 134/81 07/29/19 12:51 Pulse Ox 30 L 07/29/19 13:42 Weight - Most Recent: 232 lb 3.2 oz I&O - Last 24 hours: Intake & Output 07/29/19 07/29/19 07/29/19 06:59 14:59 22:59 Intake Total 240 360 Balance 240 360 Lab Results - Last 24 hrs: Laboratory Results - last 24 hr 07/29/19 07/29/19 07/29/19 Range/Units 09:04 09:14 09:14 WBC 9.8 (5.0-10.0) 10^3/uL RBC 4.23 L (4.6-6.2) 10^6/uL Hgb 11.1 L (14.0-18.0) g/dL Hct 34.1 L (40.0-54.0) % MCV 80.6 (80-100) fL MCH 26.2 L (27.0-34.0) pg MCHC 32.6 L (33.0-35.0) g/dL Plt Count 325 (150-450) 10^3/uL Neut % (Auto) 78.5 H (42.2-75.2) % Lymph % (Auto) 9.9 L (20.5-50.1) % [place] % (Auto) 8.9 H (2-8) % Eos % (Auto) 2.5 (1.0-3.0) % Baso % (Auto) 0.2 (0.0-1.0) % PT (9.0-12.0) SEC INR (0.9-1.2) APTT (22.0-34.0) SEC D-Dimer, Quantitative (0-400) ng/mL Sodium 134 L (136-145) mmol/L Potassium 4.4 (3.5-5.1) mmol/L Chloride 98 (98-107) mmol/L Carbon Dioxide 30 (21-32) mmol/L Anion Gap 10.4 (7-13) mEq/L BUN 26 H (7-18) mg/dL Creatinine 1.68 H (0.70-1.30) mg/dL Est Cr Clr Drug Dosing 44.31 mL/min Estimated GFR (MDRD) 42 BUN/Creatinine Ratio 15.5 (No establ ref range) Glucose 301 H (74-99) mg/dL Lactic Acid (0.4-2.0) mmol/L Calcium 8.7 (8.5-10.1) mg/dL Phosphorus (2.6-4.7) mg/dL Magnesium (1.8-2.4) mg/dL Ferritin (26-388) mg/mL Total Bilirubin 0.3 (0.2-1.0) mg/dL AST 9 L (15-37) U/L ALT 14 L (16-63) U/L Alkaline Phosphatase 91 (46-116) U/L Lactate Dehydrogenase (85-227) U/L Creatine Kinase (39-308) U/L Troponin I (0.000-0.056) ng/mL C-Reactive Protein 14.6 H (0.0-0.9) mg/dL B-Natriuretic Peptide (0-100) pg/ml Total Protein 6.8 (6.4-8.2) g/dL Albumin 2.6 L (3.4-5.0) g/dL Globulin 4.2 Albumin/Globulin Ratio 0.62 Amylase 25 (25-115) U/L Lipase 89 (73-393) U/L Urine Color Yellow (YELLOW) Urine Appearance Slightly cloudy (CLEAR) Urine pH 6.0 (5.0-9.0) Ur Specific Willis 1.025 (1.005-1.030) Urine Protein >=300 H (NEGATIVE) Urine Glucose (UA) 500 H (NEGATIVE) Urine Ketones Negative (NEGATIVE) Urine Occult Blood Small H (NEGATIVE) Urine Nitrite Negative (NEGATIVE) Urine Bilirubin Negative (NEGATIVE) Urine Urobilinogen 0.2 (0.2-1.0) mg/dL Ur Leukocyte Esterase Negative (NEGATIVE) Urine RBC 5-10 H /HPF Urine WBC 0-5 (0-5/HPF) /HPF Ur Epithelial Cells Rare (NOT SEEN) /HPF Amorphous Sediment Rare (NOT SEEN) /HPF Urine Bacteria Rare (0-FEW/HPF) /HPF Urine Mucus Few H (NOT SEEN) /LPF Urine Yeast Occasional H (NOT SEEN) /HPF SARS-CoV-2 RNA (RT-PCR) (NEGATIVE) 07/29/19 07/29/19 07/29/19 Range/Units 09:14 09:14 09:14 WBC (5.0-10.0) 10^3/uL RBC (4.6-6.2) 10^6/uL Hgb (14.0-18.0) g/dL Hct (40.0-54.0) % MCV (80-100) fL MCH (27.0-34.0) pg MCHC (33.0-35.0) g/dL Plt Count (150-450) 10^3/uL Neut % (Auto) (42.2-75.2) % Lymph % (Auto) (20.5-50.1) % [place] % (Auto) (2-8) % Eos % (Auto) (1.0-3.0) % Baso % (Auto) (0.0-1.0) % PT 9.5 (9.0-12.0) SEC INR 1.0 (0.9-1.2) APTT 27.9 (22.0-34.0) SEC D-Dimer, Quantitative 808 H (0-400) ng/mL Sodium (136-145) mmol/L Potassium (3.5-5.1) mmol/L Chloride (98-107) mmol/L Carbon Dioxide (21-32) mmol/L Anion Gap (7-13) mEq/L BUN (7-18) mg/dL Creatinine (0.70-1.30) mg/dL Est Cr Clr Drug Dosing mL/min Estimated GFR (MDRD) BUN/Creatinine Ratio (No establ ref range) Glucose (74-99) mg/dL Lactic Acid 0.9 (0.4-2.0) mmol/L Calcium (8.5-10.1) mg/dL Phosphorus (2.6-4.7) mg/dL Magnesium (1.8-2.4) mg/dL Ferritin (26-388) mg/mL Total Bilirubin (0.2-1.0) mg/dL AST (15-37) U/L ALT (16-63) U/L Alkaline Phosphatase (46-116) U/L Lactate Dehydrogenase 138 (85-227) U/L Creatine Kinase (39-308) U/L Troponin I (0.000-0.056) ng/mL C-Reactive Protein (0.0-0.9) mg/dL B-Natriuretic Peptide (0-100) pg/ml Total Protein (6.4-8.2) g/dL Albumin (3.4-5.0) g/dL Globulin Albumin/Globulin Ratio Amylase (25-115) U/L Lipase (73-393) U/L Urine Color (YELLOW) Urine Appearance (CLEAR) Urine pH (5.0-9.0) Ur Specific [place] (1.005-1.030) Urine Protein (NEGATIVE) Urine Glucose (UA) (NEGATIVE) Urine Ketones (NEGATIVE) Urine Occult Blood (NEGATIVE) Urine Nitrite (NEGATIVE) Urine Bilirubin (NEGATIVE) Urine Urobilinogen (0.2-1.0) mg/dL Ur Leukocyte Esterase (NEGATIVE) Urine RBC /HPF Urine WBC (0-5/HPF) /HPF Ur Epithelial Cells (NOT SEEN) /HPF Amorphous Sediment (NOT SEEN) /HPF Urine Bacteria (0-FEW/HPF) /HPF Urine Mucus (NOT SEEN) /LPF Urine Yeast (NOT SEEN) /HPF SARS-CoV-2 RNA (RT-PCR) (NEGATIVE) 07/29/19 07/29/19 07/29/19 Range/Units 09:14 09:14 09:14 WBC (5.0-10.0) 10^3/uL RBC (4.6-6.2) 10^6/uL Hgb (14.0-18.0) g/dL Hct (40.0-54.0) % MCV (80-100) fL MCH (27.0-34.0) pg MCHC (33.0-35.0) g/dL Plt Count (150-450) 10^3/uL Neut % (Auto) (42.2-75.2) % Lymph % (Auto) (20.5-50.1) % [place] % (Auto) (2-8) % Eos % (Auto) (1.0-3.0) % Baso % (Auto) (0.0-1.0) % PT (9.0-12.0) SEC INR (0.9-1.2) APTT (22.0-34.0) SEC D-Dimer, Quantitative (0-400) ng/mL Sodium (136-145) mmol/L Potassium (3.5-5.1) mmol/L Chloride (98-107) mmol/L Carbon Dioxide (21-32) mmol/L Anion Gap (7-13) mEq/L BUN (7-18) mg/dL Creatinine (0.70-1.30) mg/dL Est Cr Clr Drug Dosing mL/min Estimated GFR (MDRD) BUN/Creatinine Ratio (No establ ref range) Glucose (74-99) mg/dL Lactic Acid (0.4-2.0) mmol/L Calcium (8.5-10.1) mg/dL Phosphorus 3.6 (2.6-4.7) mg/dL Magnesium 1.4 L (1.8-2.4) mg/dL Ferritin 108 (26-388) mg/mL Total Bilirubin (0.2-1.0) mg/dL AST (15-37) U/L ALT (16-63) U/L Alkaline Phosphatase (46-116) U/L Lactate Dehydrogenase (85-227) U/L Creatine Kinase 60 (39-308) U/L Troponin I 0.017 (0.000-0.056) ng/mL C-Reactive Protein (0.0-0.9) mg/dL B-Natriuretic Peptide 336 H (0-100) pg/ml Total Protein (6.4-8.2) g/dL Albumin (3.4-5.0) g/dL Globulin Albumin/Globulin Ratio Amylase (25-115) U/L Lipase (73-393) U/L Urine Color (YELLOW) Urine Appearance (CLEAR) Urine pH (5.0-9.0) Ur Specific [place] (1.005-1.030) Urine Protein (NEGATIVE) Urine Glucose (UA) (NEGATIVE) Urine Ketones (NEGATIVE) Urine Occult Blood (NEGATIVE) Urine Nitrite (NEGATIVE) Urine Bilirubin (NEGATIVE) Urine Urobilinogen (0.2-1.0) mg/dL Ur Leukocyte Esterase (NEGATIVE) Urine RBC /HPF Urine WBC (0-5/HPF) /HPF Ur Epithelial Cells (NOT SEEN) /HPF Amorphous Sediment (NOT SEEN) /HPF Urine Bacteria (0-FEW/HPF) /HPF Urine Mucus (NOT SEEN) /LPF Urine Yeast (NOT SEEN) /HPF SARS-CoV-2 RNA (RT-PCR) (NEGATIVE) 07/29/19 Range/Units 11:00 WBC (5.0-10.0) 10^3/uL RBC (4.6-6.2) 10^6/uL Hgb (14.0-18.0) g/dL Hct (40.0-54.0) % MCV (80-100) fL MCH (27.0-34.0) pg MCHC (33.0-35.0) g/dL Plt Count (150-450) 10^3/uL Neut % (Auto) (42.2-75.2) % Lymph % (Auto) (20.5-50.1) % [place] % (Auto) (2-8) % Eos % (Auto) (1.0-3.0) % Baso % (Auto) (0.0-1.0) % PT (9.0-12.0) SEC INR (0.9-1.2) APTT (22.0-34.0) SEC D-Dimer, Quantitative (0-400) ng/mL Sodium (136-145) mmol/L Potassium (3.5-5.1) mmol/L Chloride (98-107) mmol/L Carbon Dioxide (21-32) mmol/L Anion Gap (7-13) mEq/L BUN (7-18) mg/dL Creatinine (0.70-1.30) mg/dL Est Cr Clr Drug Dosing mL/min Estimated GFR (MDRD) BUN/Creatinine Ratio (No establ ref range) Glucose (74-99) mg/dL Lactic Acid (0.4-2.0) mmol/L Calcium (8.5-10.1) mg/dL Phosphorus (2.6-4.7) mg/dL Magnesium (1.8-2.4) mg/dL Ferritin (26-388) mg/mL Total Bilirubin (0.2-1.0) mg/dL AST (15-37) U/L ALT (16-63) U/L Alkaline Phosphatase (46-116) U/L Lactate Dehydrogenase (85-227) U/L Creatine Kinase (39-308) U/L Troponin I (0.000-0.056) ng/mL C-Reactive Protein (0.0-0.9) mg/dL B-Natriuretic Peptide (0-100) pg/ml Total Protein (6.4-8.2) g/dL Albumin (3.4-5.0) g/dL Globulin Albumin/Globulin Ratio Amylase (25-115) U/L Lipase (73-393) U/L Urine Color (YELLOW) Urine Appearance (CLEAR) Urine pH (5.0-9.0) Ur Specific [place] (1.005-1.030) Urine Protein (NEGATIVE) Urine Glucose (UA) (NEGATIVE) Urine Ketones (NEGATIVE) Urine Occult Blood (NEGATIVE) Urine Nitrite (NEGATIVE) Urine Bilirubin (NEGATIVE) Urine Urobilinogen (0.2-1.0) mg/dL Ur Leukocyte Esterase (NEGATIVE) Urine RBC /HPF Urine WBC (0-5/HPF) /HPF Ur Epithelial Cells (NOT SEEN) /HPF Amorphous Sediment (NOT SEEN) /HPF Urine Bacteria (0-FEW/HPF) /HPF Urine Mucus (NOT SEEN) /LPF Urine Yeast (NOT SEEN) /HPF SARS-CoV-2 RNA (RT-PCR) Negative (NEGATIVE) MERLY Results - Last 24 hrs: Microbiology 07/29/19 11:33 Influenza Type A Antigen Screen - Final Nasal, Unspecified NEGATIVE INFLUENZA A VIRUS AG REFERENCE RANGE: NEGATIVE Influenza Type B Antigen Screen - Final NEGATIVE INFLUENZA B VIRUS AG REFERENCE RANGE: NEGATIVE 07/29/19 11:33 Group A Streptococcus Rapid Screen - Final Throat NEGATIVE STREP A SCREEN REFERENCE RANGE: NEGATIVE 07/29/19 09:14 Anaerobic Blood Culture - Final Blood Med Orders - Current: Current Medications Acetaminophen (Tylenol) 650 mg PO Q4H PRN PRN Reason: Pain (Mild 1-3)/fever Amlodipine Besylate (Norvasc) 10 mg PO DAILY [facility] Aspirin (Aspirin) 81 mg PO DAILY [facility] Carvedilol (Coreg) 12.5 mg PO BID [facility] Cholecalciferol (Vitamin D3) 50 mcg PO BID [facility] Clopidogrel Bisulfate (Plavix) 75 mg PO DAILY [facility] Docusate Sodium (Colace) 100 mg PO BID PRN PRN Reason: Constipation Enoxaparin Sodium (Lovenox) 40 mg SUBCUT DAILY [facility] Escitalopram Oxalate (Lexapro) 10 mg PO DAILY [facility] Fentanyl (Sublimaze) 25 mcg IVPUSH Q4H PRN PRN Reason: Abdominal Pain Last Admin: 07/29/19 14:33 Dose: 25 mcg Furosemide (Lasix) 40 mg PO DAILY [facility] Hydromorphone HCl (Dilaudid) 1 mg PO Q6H PRN PRN Reason: Pain Last Admin: 07/29/19 17:50 Dose: 1 mg Sodium Chloride (Normal Saline) 1,000 mls @ 75 mls/hr IV ASDIRECTED [facility] Last Admin: 07/29/19 14:21 Dose: 75 mls/hr Azithromycin 500 mg/ Sodium (Chloride) 250 mls @ 250 mls/hr IV Q24H [facility] Ceftriaxone Sodium 1 gm/ (Sodium Chloride) 50 mls @ 100 mls/hr IV Q24H [facility] Isosorbide Mononitrate (Imdur) 30 mg PO DAILY [facility] Lorazepam (Ativan) 1 mg PO DAILY [facility] Magnesium Hydroxide (Milk Of Magnesia) 30 ml PO Q12H PRN PRN Reason: Constipation Ondansetron HCl (Zofran Odt) 4 mg PO Q6H PRN PRN Reason: nausea, able to take PO Rosuvastatin Calcium (Crestor) 20 mg PO DAILY [facility] Sodium Chloride (Saline Flush) 10 ml FLUSH ASDIRECTED PRN PRN Reason: Keep Vein Open Last Admin: 07/29/19 14:23 Dose: 10 ml Tamsulosin HCl (Flomax) 0.4 mg PO DAILY JIGNESH Discontinued Medications Albuterol/Ipratropium (Duoneb 3.0-0.5 Mg/3 Ml) 3 ml NEB ONETIME ONE Stop: 07/29/19 11:43 Last Admin: 07/29/19 12:02 Dose: 3 ml Fentanyl (Sublimaze) 25 mcg IVPUSH ONETIME ONE Stop: 07/29/19 09:20 Last Admin: 07/29/19 09:28 Dose: 25 mcg Fentanyl (Sublimaze) 50 mcg IVPUSH ONETIME ONE Stop: 07/29/19 11:43 Last Admin: 07/29/19 12:00 Dose: 50 mcg Azithromycin 500 mg/ Sodium (Chloride) 250 mls @ 250 mls/hr IV ONETIME ONE Stop: 07/29/19 12:11 Last Admin: 07/29/19 11:22 Dose: 250 mls/hr Ceftriaxone Sodium 2 gm/ (Sodium Chloride) 100 mls @ 200 mls/hr IV ONETIME ONE Stop: 07/29/19 11:40 Last Admin: 07/29/19 11:11 Dose: 200 mls/hr Ceftriaxone Sodium 1,000 mg/ (Sodium Chloride) 100 mls @ 200 mls/hr IV Q24H JIGNESH Ondansetron HCl (Zofran) 4 mg IV ONETIME ONE Stop: 07/29/19 09:20 Last Admin: 07/29/19 09:30 Dose: 4 mg Oxycodone HCl (Oxycodone) 5 mg PO Q8H PRN PRN Reason: Pain (Moderate 7-10) - Exam General: Reports: Alert, Oriented HEENT: Reports: Pupils Equal, Pupils Reactive, EOMI, Mucous Membr. Moist/[place] Neck: Reports: Supple Lungs: Reports: Clear to Auscultation, Normal Respiratory Effort Cardiovascular: Reports: Regular Rate, Regular Rhythm GI/Abdominal Exam: Normal Bowel Sounds, Soft, Non-Tender, No Organomegaly, No Distention, No Abnormal Bruit, No Mass, Pelvis Stable (Male) Exam: No Hernia, Normal Inspection, Normal Prostate, Circumcised Rectal (Males) Exam: Normal Exam, Normal Rectal Tone, Prostate Normal Back Exam: Reports: Normal Inspection, Full Range of Motion Extremities: Normal Inspection, Normal Range of Motion, Non-Tender, No Pedal Edema, Normal Capillary Refill Skin: Reports: Warm, Dry, Intact Wound/Incisions: Reports: Healing Well Neurological: Reports: No New Focal Deficit Psy/Mental Status: Reports: Alert, Normal Affect, Normal Mood
[2019-07-29] MEDS ORDERED: Carvedilol 25 MG Tab PO SCH (21:00)
[2019-07-29] MEDS ORDERED: Cholecalciferol (Vitamin D3) 25 MCG Tab PO SCH (21:00)
[2019-07-30] MEDS ORDERED: Furosemide 40 MG/4 ML VIAL IVPUSH SCH (07:00)
[2019-07-30] MEDS ORDERED: Azithromycin 500 MG in Sodium Chloride 0.9% 250 ML IV SCH (09:00)
[2019-07-30] MEDS ORDERED: amLODIPine 5 MG Tab PO SCH (09:00)
[2019-07-30] MEDS ORDERED: Tamsulosin 0.4 MG Cap.ER PO SCH (09:00)
[2019-07-30] MEDS ORDERED: Furosemide 40 MG Tab PO SCH (09:00)
[2019-07-30] MEDS ORDERED: Escitalopram 10 MG Tab PO SCH (09:00)
[2019-07-30] MEDS ORDERED: LORazepam 1 MG Tab PO SCH (09:00)
[2019-07-30] MEDS ORDERED: Enoxaparin 40 MG/0.4 ML Syringe SUBCUT SCH (09:00)
[2019-07-30] MEDS ORDERED: Aspirin 81 MG Tab.Chew PO SCH (09:00)
[2019-07-30] MEDS ORDERED: Rosuvastatin 10 MG Tab PO SCH (09:00)
[2019-07-30] MEDS ORDERED: Clopidogrel 75 MG Tab PO SCH (09:00)
[2019-07-30] MEDS ORDERED: Isosorbide Mononitrate 30 MG Tab.ER PO SCH (09:00)
[2019-07-30] MEDS ORDERED: cefTRIAXone 1 GM in Sodium Chloride 0.9% 50 ML IV SCH (14:30)
--- NOTE | 2019-08-01 14:07 | EKG ---
07/29/2019 - ARMIN BROOKS - TIME: 7:14 p.m. FINDINGS: As per my reading, sinus rhythm at 99, with right bundle branch block. [facility] /[id number]
== END 2019-07-29 20:51 | DRG 139 ==
LOC: DL.ED 08:40 → DL.MS 12:27
PROVIDERS: ADMIT Student in an Organized Health Care Education/Training Program; ATTEND Student in an Organized Health Care Education/Training Program
DX: J18.9 Pneumonia, unspecified organism (principal); J96.01 Acute respiratory failure with hypoxia; I25.10 Atherosclerotic heart disease of native coronary artery without angina pectoris; R79.89 Other specified abnormal findings of blood chemistry; I10 Essential (primary) hypertension; E11.9 Type 2 diabetes mellitus without complications; E78.5 Hyperlipidemia, unspecified; N40.0 Benign prostatic hyperplasia without lower urinary tract symptoms; D64.9 Anemia, unspecified; E66.9 Obesity, unspecified; H54.7 Unspecified visual loss; E78.00 Pure hypercholesterolemia, unspecified; M19.90 Unspecified osteoarthritis, unspecified site; F41.9 Anxiety disorder, unspecified; F32.9 Major depressive disorder, single episode, unspecified; Z90.49 Acquired absence of other specified parts of digestive tract; Z79.4 Long term (current) use of insulin; Z79.899 Other long term (current) drug therapy; Z79.82 Long term (current) use of aspirin; Z79.01 Long term (current) use of anticoagulants; Z87.01 Personal history of pneumonia (recurrent); Z68.37 Body mass index [BMI] 37.0-37.9, adult; Z20.828 Contact with and (suspected) exposure to other viral communicable diseases
CPT/HCPCS: 36415; 71250; 74176; 80053; 81001; 82150; 82550; 82728; 82962; 83605; 83615; 83690; 83735; 83880; 84100; 84484; 85025; 85379; 85610; 85730; 86140; 87040; 87081; 87430; 87804; 93005; 94640; 96365; 96368; 96375; 96376; 99285-25; A9270-GY; J0456; J0696; J1940; J2405; J3010; J3475; J3490; J7030; J7050; J7620-GY; U0002

== ENCOUNTER 2019-10-26 09:04 | Inpatient (IN) | payer BC ==
[2019-10-26] MEDS ORDERED: Sodium Chloride 0.9% 10 ML Syringe FLUSH PRN (09:12)
--- NOTE | 2019-10-26 09:15 | EDM.PDOC ---
"ED HPI GENERAL MEDICAL PROBLEM - General Chief Complaint: Respiratory Problem Stated Complaint: AMBULANCE Time Seen by Provider: 10/26/19 09:14 Source of Information: Reports: Patient, Old Records, Provider (Laura Hoffman NP), RN, RN Notes Reviewed History Limitations: Reports: No Limitations - History of Present Illness INITIAL COMMENTS - FREE TEXT/NARRATIVE: Pt sent from [facility] via wheelchair by Laura Hoffman NP with request to transfer the pt back to [facility] in [place] for hypoxia & CHF exacerbation. Pt was discharged yesterday from [facility] in [place], and went to the clinic for repeat creatine this morning. In clinic he found to have weight increased by 17 pounds since last week, and had increased lower extremity edema. Pt complained of shortness of breath and was found to have SpO2 of 82% on room air. Pt denies fever. He states that he had a negative COVID test Oct.22. Onset: Gradual Duration: Constant, Getting Worse Location: Reports: Chest Quality: Reports: Other (Denies pain) Severity: Severe Improves with: Reports: None Worsens with: Reports: Other (Activity/exertion) Associated Symptoms: Reports: No Other Symptoms Treatments [employer]: Reports: Other Medication(s) - Related Data Allergies Allergy/AdvReac Type Severity Reaction Status Date / Time morphine Allergy Severe unknown Verified 07/29/19 13:05 lisinopril Allergy Intermediate unknown Verified 07/29/19 13:05 contrast dye Allergy Severe unknown Uncoded 07/29/19 13:05 Home Meds: Home Meds metFORMIN HCl [Metformin HCl] 1,000 mg PO BID 07/20/19 [History] Aspirin 81 mg PO DAILY 07/29/19 [History] Cholecalciferol (Vitamin D3) [Vitamin D3] 2,000 unit PO BID 07/29/19 [History] Clopidogrel Bisulfate [Clopidogrel] 75 mg PO DAILY 07/29/19 [History] Escitalopram [Lexapro] 10 mg PO DAILY 07/29/19 [History] Furosemide 40 mg PO DAILY 07/29/19 [History] Insulin Asp Prot/Insulin Asp [NovoLOG Mix 70-30] See Protocol SQ BID 07/29/19 [History] Isosorbide Mononitrate [Imdur] 30 mg PO DAILY 07/29/19 [History] LORazepam [Lorazepam] 1 mg PO DAILY 07/29/19 [History] Potassium Chloride 20 meq PO DAILY 07/29/19 [History] Rosuvastatin Calcium 20 mg PO DAILY 07/29/19 [History] Tamsulosin HCl 0.4 mg PO DAILY 07/29/19 [History] amLODIPine Besylate [Amlodipine Besylate] 10 mg PO DAILY 07/29/19 [History] carvediloL [Carvedilol] 12.5 mg PO BID 07/29/19 [History] Past Medical History HEENT History: Reports: Impaired Vision Cardiovascular History: Reports: Angina, CAD, Heart Failure, High Cholesterol, Hypertension, Stents Respiratory History: Reports: Pneumonia, Recurrent, SOB Gastrointestinal History: Reports: Cholelithiasis, Diverticulosis Genitourinary History: Reports: BPH, Prostate Disorder Musculoskeletal History: Reports: Arthritis Neurological History: Reports: None Psychiatric History: Reports: Anxiety, Depression Endocrine/Metabolic History: Reports: Diabetes, Type II, IDDM, Obesity/BMI 30+ Hematologic History: Reports: Anemia Immunologic History: Reports: None Oncologic (Cancer) History: Reports: Other (See Below) Other Oncologic History: Lymphatic and testicular Dermatologic History: Reports: None - Infectious Disease History Infectious Disease History: Reports: MRSA - Past Surgical History Head Surgeries/Procedures: Reports: None GI Surgical History: Reports: Cholecystectomy Social & Family History - Family History Family Medical History: Noncontributory - Caffeine Use Caffeine Use: Reports: Energy Drinks - Living Situation & Occupation Living situation: Reports: Single, Alone ED ROS GENERAL - Review of Systems Review Of Systems: Comprehensive ROS is negative, except as noted in HPI. ED EXAM, GENERAL - Physical Exam Exam: See Below Exam Limited By: No Limitations General Appearance: Alert, Mild Distress (Mildly labored breathing, conversant in full sentences.), Obese Eye Exam: Bilateral Eye: Normal Inspection Nose: Normal Inspection, Normal Mucosa, No Blood Throat/Mouth: Normal Lips, Normal Voice, No Airway Compromise Head: Atraumatic, Normocephalic Neck: Normal Inspection, Supple, Non-Tender, Full Range of Motion. No: Lymphadenopathy (L), Lymphadenopathy (R) Respiratory/Chest: Chest Non-Tender, Decreased Breath Sounds, Crackles, Rales, Other (Increased work of breathing). No: Rhonchi, Wheezing, Stridor Cardiovascular: Regular Rate, Rhythm, Other (+2 pitting edema to B/L knees) GI/Abdominal: Normal Bowel Sounds, Soft, No Distention, Tender (mild epigastric tenderness). No: Guarding, Rigid, Rebound Back Exam: Normal Inspection Extremities: Normal Range of Motion, Non-Tender, Pedal Edema. No: Joint Swelling Neurological: Alert, Oriented, CN II-XII Intact, Normal Cognition, No Motor/Sensory Deficits Psychiatric: Normal Mood Skin Exam: Warm, Dry, Intact, Normal Color, No Rash EKG INTERPRETATION EKG Date: 10/26/19 Time: 09:21 Rhythm: Other (SR) Rate (Beats/Min): 89 [place]: LAD-Left [place] Deviation P-Wave: Present QRS: RBBB (and LAFB) ST-T: Normal QT: Normal Comparison: NA - No Prior EKG Course - Vital Signs Last Recorded V/S: Last Vital Signs Temp 99.0 F 10/26/19 09:18 Pulse 91 10/26/19 09:18 Resp 20 10/26/19 09:18 BP 130/72 10/26/19 09:18 Pulse Ox 94 L 10/26/19 09:18 - Orders/Labs/Meds Orders: Active Orders 24 hr Category Date Time Status EKG Documentation Completion [RC] STAT Care 10/26/19 09:11 Active Peripheral IV Care [RC] . DIRECTED Care 10/26/19 09:13 Active CBC WITH AUTO DIFF [HEME] Stat Lab 10/26/19 09:26 Results CULTURE BLOOD [BC] Stat Lab 10/26/19 09:56 Ordered CULTURE BLOOD [BC] Stat Lab 10/26/19 10:11 Received LACTIC ACID [CHEM] Stat Lab 10/26/19 10:11 Received MANUAL DIFFERENTIAL QA/NC [HEME] Stat Lab 10/26/19 09:26 Results Azithromycin [Zithromax] 500 mg Med 10/26/19 09:57 Active Sodium Chloride 0.9% [Normal Saline (AdvBag)] 250 ml IV ONETIME Sodium Chloride 0.9% [Saline Flush] Med 10/26/19 09:12 Active 10 ml FLUSH ASDIRECTED PRN Blood Culture x2 Reflex Set [OM.PC] Stat Oth 10/26/19 09:56 Ordered Peripheral IV Insertion Adult [OM.PC] Routine Oth 10/26/19 09:12 Ordered Medication Orders Azithromycin 500 mg/ Sodium (Chloride) 250 mls @ 250 mls/hr IV ONETIME ONE Stop: 10/26/19 10:56 Sodium Chloride (Saline Flush) 10 ml FLUSH ASDIRECTED PRN PRN Reason: Keep Vein Open Last Admin: 10/26/19 09:29 Dose: 10 ml Documented by: DAVEY Labs: Laboratory Tests 10/26/19 10/26/19 10/26/19 Range/Units 09:26 09:26 10:15 WBC 14.5 H (5.0-10.0) 10^3/uL RBC 3.86 L (4.6-6.2) 10^6/uL Hgb 9.9 L (14.0-18.0) g/dL Hct 31.4 L (40.0-54.0) % MCV 81.3 (80-100) fL MCH 25.6 L (27.0-34.0) pg MCHC 31.5 L (33.0-35.0) g/dL Plt Count 260 (150-450) 10^3/uL Neut % (Auto) 84.9 H (42.2-75.2) % Lymph % (Auto) 4.4 L (20.5-50.1) % [place] % (Auto) 10.0 H (2-8) % Eos % (Auto) 0.5 L (1.0-3.0) % Baso % (Auto) 0.2 (0.0-1.0) % Add Manual Diff Yes Sodium 136 (136-145) mmol/L Potassium 4.1 (3.5-5.1) mmol/L Chloride 100 (98-107) mmol/L Carbon Dioxide 27 (21-32) mmol/L Anion Gap 13.1 H (7-13) mEq/L BUN 46 H (7-18) mg/dL Creatinine 3.01 H D (0.70-1.30) mg/dL Est Cr Clr Drug Dosing 23.84 mL/min Estimated GFR (MDRD) 22 BUN/Creatinine Ratio 15.3 (No establ ref range) Glucose 206 H (74-99) mg/dL Calcium 8.3 L (8.5-10.1) mg/dL Total Bilirubin 0.4 (0.2-1.0) mg/dL AST 11 L (15-37) U/L ALT 14 L (16-63) U/L Alkaline Phosphatase 77 (46-116) U/L Troponin I < 0.017 (0.000-0.056) ng/mL B-Natriuretic Peptide 468 H (0-100) pg/ml Total Protein 6.7 (6.4-8.2) g/dL Albumin 2.9 L (3.4-5.0) g/dL Globulin 3.8 Albumin/Globulin Ratio 0.76 COVID-19 (DON) Negative (NEGATIVE) Meds: Medications Generic Name Dose Route Start Last Admin Trade Name Freq PRN Reason Stop Dose Admin Azithromycin 500 mg/ Sodium 250 mls @ 250 mls/hr 10/26/19 09:57 Chloride IV 10/26/19 10:56 ONETIME ONE Sodium Chloride 10 ml 10/26/19 09:12 10/26/19 09:29 Saline Flush FLUSH 10 ml ASDIRECTED PRN Administration Keep Vein Open Discontinued Medications Generic Name Dose Route Start Last Admin Trade Name Freq PRN Reason Stop Dose Admin Ceftriaxone Sodium 2 gm/ 100 mls @ 200 mls/hr 10/26/19 09:57 Sodium Chloride IV 10/26/19 10:26 ONETIME ONE Sodium Chloride Confirm 10/26/19 10:12 10/26/19 10:28 Normal Saline Administered 10/26/19 10:13 Not Given Dose 100 mls @ as directed .ROUTE .[facility] - Radiology Interpretation Free Text/Narrative:: [facility] Final Radiology Report Call: [phone] assistance Online chat: [email or web address]: ARMIN BROOKS Age: 54Years M Date: 10/26/2019 SSN: -- : [id number] Study: CR CHEST 2V Requesting Physician: MEET DA SILVA Images: 2 Addl Studies: Provided Clinical History: shortness of breath Contrast: Contrast Medium: Contrast Amount: Contrast Method: Page 1 of 2 PROCEDURE INFORMATION: Exam: XR Chest, 2 Views Exam date and time: 10/26/2019 9:41 AM Age: 54 years old Clinical indication: Shortness of breath TECHNIQUE: Imaging protocol: XR of the chest Views: 2 views. COMPARISON: CT Chest wo Cont 07/29/2019 10:10 AM FINDINGS: Lungs: The lung volumes are decreased with vascular crowding secondary to elevation of the diaphragms which is likely on the basis of poor inspiratory effort. Ground-glass airspace disease at the lower lung weiss bilaterally. Pleural space: Unremarkable. No pleural effusion. No pneumothorax. Heart/Mediastinum: Unremarkable. No cardiomegaly. Diaphragm: There is an elevated right hemidiaphragm present on the current exam ination. Bones/joints: Unremarkable. IMPRESSION: Ground-glass airspace disease at the lower lung weiss bilaterally. These findings have worsened since previous study. Thank you for allowing us to participate in the care of your patient. Dictated and Authenticated by: Onofre Turner MD NELSON, DAVID | Final Radiology Report CONFIDENTIALITY STATEMENT This report is intended only for use by the referring physician, and only in accordance with law. If you received this in error, call [phone]. Page 2 of 2 10/26/2019 10:08 AM Central Time ([place] & [place]) - Re-Assessments/Exams Free Text/Narrative Re-Assessment/Exam: 10/26/19 10:53 Pt to transfer pt to [facility], but no bed currently available. Dr. Grajeda will admit the pt here for now and consider transfer when bed is available if needed. Departure - Departure Time of Disposition: 10:54 (admitted to Dr. Grajeda) Disposition: Admitted As Inpatient 64 Condition: Serious Clinical Impression: GISELA (acute kidney injury) Pneumonia Qualifiers: Pneumonia type: due to unspecified organism Laterality: bilateral Lung location: unspecified part of lung Qualified Code(s): J18.9 - Pneumonia, unspecified organism Acute respiratory failure Qualifiers: Respiratory failure complication: hypoxia Qualified Code(s): J96.01 - Acute respiratory failure with hypoxia - Discharge Information *PRESCRIPTION DRUG MONITORING PROGRAM REVIEWED*: Not Applicable *COPY OF PRESCRIPTION DRUG MONITORING REPORT IN PATIENT [place]: Not Applicable Forms: ED Department Discharge Sepsis Event Note (ED) - Focused Exam Vital Signs: Vital Signs Temp Pulse Resp BP Pulse Ox 10/26/19 09:18 99.0 F 91 20 130/72 94 L - My Orders Last 24 Hours: My Active Orders 10/26/19 09:11 EKG Documentation Completion [RC] STAT 10/26/19 09:12 Sodium Chloride 0.9% [Saline Flush] 10 ml FLUSH ASDIRECTED PRN Peripheral IV Insertion Adult [OM.PC] Routine 10/26/19 09:13 Peripheral IV Care [RC] . DIRECTED 10/26/19 09:26 CBC WITH AUTO DIFF [HEME] Stat MANUAL DIFFERENTIAL QA/NC [HEME] Stat 10/26/19 09:56 CULTURE BLOOD [BC] Stat Blood Culture x2 Reflex Set [OM.PC] Stat 10/26/19 09:57 Azithromycin [Zithromax] 500 mg Sodium Chloride 0.9% [Normal Saline (AdvBag)] 250 ml IV ONETIME 10/26/19 10:11 CULTURE BLOOD [BC] Stat LACTIC ACID [CHEM] Stat - Assessment/Plan Last 24 Hours: My Active Orders 10/26/19 09:11 EKG Documentation Completion [RC] STAT 10/26/19 09:12 Sodium Chloride 0.9% [Saline Flush] 10 ml FLUSH ASDIRECTED PRN Peripheral IV Insertion Adult [OM.PC] Routine 10/26/19 09:13 Peripheral IV Care [RC] . DIRECTED 10/26/19 09:26 CBC WITH AUTO DIFF [HEME] Stat MANUAL DIFFERENTIAL QA/NC [HEME] Stat 10/26/19 09:56 CULTURE BLOOD [BC] Stat Blood Culture x2 Reflex Set [OM.PC] Stat 10/26/19 09:57 Azithromycin [Zithromax] 500 mg Sodium Chloride 0.9% [Normal Saline (AdvBag)] 250 ml IV ONETIME 10/26/19 10:11 CULTURE BLOOD [BC] Stat LACTIC ACID [CHEM] Stat"
[2019-10-26] MEDS ORDERED: cefTRIAXone 2 GM in Sodium Chloride 0.9% 100 ML IV ONE (09:57)
[2019-10-26] MEDS ORDERED: Azithromycin 500 MG in Sodium Chloride 0.9% 250 ML IV ONE ×3 (09:57→15:00)
[2019-10-26 09:59] LABS: ANION GAP 13.1 mEq/L (7-13); CHLORIDE,CL 100 mmol/L (98-107); SODIUM,NA 136 mmol/L (136-145)
--- NOTE | 2019-10-26 10:08 | CR ---
PROCEDURE INFORMATION: Exam: XR Chest, 2 Views Exam date and time: 10/26/2019 9:41 AM Age: 54 years old Clinical indication: Shortness of breath TECHNIQUE: Imaging protocol: XR of the chest Views: 2 views. COMPARISON: CT Chest wo Cont 07/29/2019 10:10 AM FINDINGS: Lungs: The lung volumes are decreased with vascular crowding secondary to elevation of the diaphragms which is likely on the basis of poor inspiratory effort. Ground-glass airspace disease at the lower lung weiss bilaterally. Pleural space: Unremarkable. No pleural effusion. No pneumothorax. Heart/Mediastinum: Unremarkable. No cardiomegaly. Diaphragm: There is an elevated right hemidiaphragm present on the current examination. Bones/joints: Unremarkable. IMPRESSION: Ground-glass airspace disease at the lower lung weiss bilaterally. These findings have worsened since previous study.
[2019-10-26] MEDS ORDERED: Sodium Chloride 0.9% 100 ML ONE (10:12)
[2019-10-26] MEDS ORDERED: Ondansetron 4 MG Tab.DIS PO PRN (11:42)
[2019-10-26] MEDS ORDERED: Ondansetron 4 MG/2 ML SDV IVPUSH PRN (11:42)
[2019-10-26] MEDS ORDERED: Acetaminophen 325 MG Tab PO PRN (11:42)
[2019-10-26] MEDS ORDERED: Furosemide 40 MG/4 ML VIAL IVPUSH ONE (12:00)
--- NOTE | 2019-10-26 12:26 | PCM.HP ---
H&P History of Present Illness - General Date of Service: 10/26/19 Admit Problem/Dx: Admission Diagnosis/Problem Admission Diagnosis/Problem Pneumonia Source of Information: Patient, Old Records, Provider - History of Present Illness Initial Comments - Free Text/Narative: Mr. Conley is a 54-year-old male with medical history significant for CAD distal stent placement, hyperlipidemia, type 2 diabetes, diverticulitis, cholecystectomy, testicular cancer status post exploratory laparotomy with tumor resection and left orchiectomy, CHF, and recurrent pleural effusions and multifocal pneumonia who was sent from the [facility] to the ED with complaints of shortness of breath, hypoxia, and possible CHF exacerbation. Reports that he was discharged from [facility] 2 days ago. Reports that he had presented with chest pressure and he had work-up for pulmonary embolism which was negative. He reports that he underwent coronary angiogram and was told that his stents were patent. Reports that he has had worsening shortness of breath is discharge. Reports that he presented today for follow-up labs and was told to come to the ED because he would need to be transferred to [facility]. Today, patient reports that he has worsening shortness of breath and states that he is unable to take deep breaths because he feels like his lungs are blocked. His O2 saturation in the clinic was reported to be in the 82% on room air. Improved with 2 L of oxygen. Patient reports that he does not take oxygen at baseline. Has nonproductive cough that has been going on for several weeks. Reports chills but denies fevers. Reports intermittent diarrhea and constipation. Progressive weight gain. Denies nausea, seizure, hematuria, worsening edema, or any new symptoms. He reports occasional alcohol intake. Does not drink any more than 2 drinks a day. Denies tobacco or illicit drug use. - Related Data Allergies/Adverse Reactions: Allergies Allergy/AdvReac Type Severity Reaction Status Date / Time morphine Allergy Severe unknown Verified 10/26/19 11:57 lisinopril Allergy Intermediate unknown Verified 10/26/19 11:57 contrast dye Allergy Severe unknown Uncoded 10/26/19 11:57 Home Medications: Home Meds Aspirin 81 mg PO DAILY 07/29/19 [History] Cholecalciferol (Vitamin D3) [Vitamin D3] 2,000 unit PO BID 07/29/19 [History] Clopidogrel Bisulfate [Clopidogrel] 75 mg PO DAILY 07/29/19 [History] Escitalopram [Lexapro] 10 mg PO BEDTIME 07/29/19 [History] Furosemide 40 mg PO DAILY 07/29/19 [History] Insulin Asp Prot/Insulin Asp [NovoLOG Mix 70-30] See Protocol SQ BID 07/29/19 [History] Isosorbide Mononitrate [Imdur] 30 mg PO DAILY 07/29/19 [History] LORazepam [Lorazepam] 1 mg PO BEDTIME 07/29/19 [History] Potassium Chloride 20 meq PO DAILY 07/29/19 [History] Rosuvastatin Calcium 20 mg PO BEDTIME 07/29/19 [History] Tamsulosin HCl 0.4 mg PO BEDTIME 07/29/19 [History] amLODIPine Besylate [Amlodipine Besylate] 10 mg PO DAILY 07/29/19 [History] carvediloL [Carvedilol] 12.5 mg PO BID 07/29/19 [History] Past Medical History HEENT History: Reports: Impaired Vision Cardiovascular History: Reports: Angina, CAD, Heart Failure, High Cholesterol, Hypertension, Stents Respiratory History: Reports: Pneumonia, Recurrent, SOB Gastrointestinal History: Reports: Cholelithiasis, Diverticulosis Genitourinary History: Reports: BPH, Prostate Disorder Musculoskeletal History: Reports: Arthritis Neurological History: Reports: None Psychiatric History: Reports: Anxiety, Depression Endocrine/Metabolic History: Reports: Diabetes, Type II, IDDM, Obesity/BMI 30+ Hematologic History: Reports: Anemia Immunologic History: Reports: None Oncologic (Cancer) History: Reports: Other (See Below) Other Oncologic History: Lymphatic and testicular Dermatologic History: Reports: None - Infectious Disease History Infectious Disease History: Reports: MRSA - Past Surgical History Head Surgeries/Procedures: Reports: None GI Surgical History: Reports: Cholecystectomy Social & Family History - Family History Family Medical History: Noncontributory - Tobacco Use Smoking Status *Q: Never Smoker - Caffeine Use Caffeine Use: Reports: Energy Drinks - Recreational Drug Use Recreational Drug Use: No - Living Situation & Occupation Living situation: Reports: Single, Alone H&P Review of Systems - Review of Systems: Review Of Systems: Comprehensive ROS is negative, except as noted in HPI. Exam - Exam Exam: See Below - Vital Signs Vital Signs: Last Vital Signs Temp 100.1 F 10/26/19 11:54 Pulse 84 10/26/19 11:54 Resp 20 10/26/19 11:54 BP 144/90 H 10/26/19 11:54 Pulse Ox 94 L 10/26/19 11:54 Weight: 239 lb - Exam Quality Assessment: Supplemental Oxygen (4L via NC) General: Alert, Oriented, Cooperative, Moderate Distress HEENT: Conjunctiva Clear, EOMI, Hearing Intact, Mucosa Moist & [place] Neck: Supple, Trachea Midline Lungs: Crackles, Rales, Other (Tachypneic) Cardiovascular: Regular Rate, Regular Rhythm, Normal S1, Normal S2 GI/Abdominal Exam: Normal Bowel Sounds, Soft, No Distention Extremities: Non-Tender, Pedal Edema (1+) Peripheral Pulses: 2+: Radial (L), Radial (R), Dorsalis Pedis (L), Dorsalis Pedis (R) Skin: Warm, Dry, Intact Neuro Extensive - Mental Status: Alert, Oriented x3, Normal Mood/Affect, Normal Cognition, Memory Intact Psychiatric: Alert, Normal Affect, Normal Mood - Patient Data Lab Results Last 24 hrs: Laboratory Results - last 24 hr 10/26/19 10/26/19 10/26/19 Range/Units 09:26 09:26 10:11 WBC 14.5 H (5.0-10.0) 10^3/uL RBC 3.86 L (4.6-6.2) 10^6/uL Hgb 9.9 L (14.0-18.0) g/dL Hct 31.4 L (40.0-54.0) % MCV 81.3 (80-100) fL MCH 25.6 L (27.0-34.0) pg MCHC 31.5 L (33.0-35.0) g/dL Plt Count 260 (150-450) 10^3/uL Neut % (Auto) 84.9 H (42.2-75.2) % Lymph % (Auto) 4.4 L (20.5-50.1) % [place] % (Auto) 10.0 H (2-8) % Eos % (Auto) 0.5 L (1.0-3.0) % Baso % (Auto) 0.2 (0.0-1.0) % Add Manual Diff Yes Neutrophils % (Manual) 83 H (42-75) % Band Neutrophils % 1 % Lymphocytes % (Manual) 8 L (20-50) % Monocytes % (Manual) 5 (2-8) % Eosinophils % (Manual) 2 (1-3) % Basophils % (Manual) 1 Sodium 136 (136-145) mmol/L Potassium 4.1 (3.5-5.1) mmol/L Chloride 100 (98-107) mmol/L Carbon Dioxide 27 (21-32) mmol/L Anion Gap 13.1 H (7-13) mEq/L BUN 46 H (7-18) mg/dL Creatinine 3.01 H D (0.70-1.30) mg/dL Est Cr Clr Drug Dosing 23.84 mL/min Estimated GFR (MDRD) 22 BUN/Creatinine Ratio 15.3 (No establ ref range) Glucose 206 H (74-99) mg/dL Lactic Acid 0.9 (0.4-2.0) mmol/L Calcium 8.3 L (8.5-10.1) mg/dL Total Bilirubin 0.4 (0.2-1.0) mg/dL AST 11 L (15-37) U/L ALT 14 L (16-63) U/L Alkaline Phosphatase 77 (46-116) U/L Troponin I < 0.017 (0.000-0.056) ng/mL B-Natriuretic Peptide 468 H (0-100) pg/ml Total Protein 6.7 (6.4-8.2) g/dL Albumin 2.9 L (3.4-5.0) g/dL Globulin 3.8 Albumin/Globulin Ratio 0.76 COVID-19 (DON) (NEGATIVE) 10/26/19 Range/Units 10:15 WBC (5.0-10.0) 10^3/uL RBC (4.6-6.2) 10^6/uL Hgb (14.0-18.0) g/dL Hct (40.0-54.0) % MCV (80-100) fL MCH (27.0-34.0) pg MCHC (33.0-35.0) g/dL Plt Count (150-450) 10^3/uL Neut % (Auto) (42.2-75.2) % Lymph % (Auto) (20.5-50.1) % [place] % (Auto) (2-8) % Eos % (Auto) (1.0-3.0) % Baso % (Auto) (0.0-1.0) % Add Manual Diff Neutrophils % (Manual) (42-75) % Band Neutrophils % % Lymphocytes % (Manual) (20-50) % Monocytes % (Manual) (2-8) % Eosinophils % (Manual) (1-3) % Basophils % (Manual) Sodium (136-145) mmol/L Potassium (3.5-5.1) mmol/L Chloride (98-107) mmol/L Carbon Dioxide (21-32) mmol/L Anion Gap (7-13) mEq/L BUN (7-18) mg/dL Creatinine (0.70-1.30) mg/dL Est Cr Clr Drug Dosing mL/min Estimated GFR (MDRD) BUN/Creatinine Ratio (No establ ref range) Glucose (74-99) mg/dL Lactic Acid (0.4-2.0) mmol/L Calcium (8.5-10.1) mg/dL Total Bilirubin (0.2-1.0) mg/dL AST (15-37) U/L ALT (16-63) U/L Alkaline Phosphatase (46-116) U/L Troponin I (0.000-0.056) ng/mL B-Natriuretic Peptide (0-100) pg/ml Total Protein (6.4-8.2) g/dL Albumin (3.4-5.0) g/dL Globulin Albumin/Globulin Ratio COVID-19 (DON) Negative (NEGATIVE) Result Diagrams: 10/26/19 09:26 10/26/19 09:26 Tomas Results Last 24 hrs: Microbiology 10/26/19 11:56 Anaerobic Blood Culture - Final Blood - Venous - Lab Draw - Problem List (1) CAD (coronary artery disease) SNOMED Code(s): 08141474 ICD Code: I25.10 - ATHSCL HEART DISEASE OF [place] CORONARY ARTERY W/O ANG PCTRS Status: Acute Current Visit: Yes (2) Diabetes mellitus SNOMED Code(s): 44660529 ICD Code: E11.9 - TYPE 2 DIABETES MELLITUS WITHOUT COMPLICATIONS Status: Acute Current Visit: Yes (3) Paroxysmal A-fib SNOMED Code(s): 911360439 ICD Code: I48.0 - PAROXYSMAL ATRIAL FIBRILLATION Status: Acute Current Visit: Yes (4) Hyperlipidemia SNOMED Code(s): 33347601 ICD Code: E78.5 - HYPERLIPIDEMIA, UNSPECIFIED Status: Acute Current Visit: Yes (5) Anxiety SNOMED Code(s): 94650884 ICD Code: F41.9 - ANXIETY DISORDER, UNSPECIFIED Status: Acute Current Visit: Yes (6) Acute kidney injury superimposed on CKD SNOMED Code(s): 12328985 ICD Code: N17.9 - ACUTE KIDNEY FAILURE, UNSPECIFIED; N18.9 - CHRONIC KIDNEY DISEASE, UNSPECIFIED Status: Acute Current Visit: Yes (7) GISELA (acute kidney injury) SNOMED Code(s): 11317371, 64765737 ICD Code: N17.9 - ACUTE KIDNEY FAILURE, UNSPECIFIED Status: Acute Current Visit: No (8) Acute respiratory failure with hypoxia SNOMED Code(s): 46290160, 300768636 ICD Code: J96.01 - ACUTE RESPIRATORY FAILURE WITH HYPOXIA Status: Acute Current Visit: No (9) Multilobar lung infiltrate SNOMED Code(s): 0304772257409 ICD Code: R91.8 - OTHER NONSPECIFIC ABNORMAL FINDING OF LUNG FIELD Status: Acute Current Visit: No Problem List Initiated/Reviewed/Updated: Yes Orders Last 24hrs: Active Orders 24 hr Category Date Time Status Admission Diagnosis [ADT] Stat ADT 10/26/19 11:00 Ordered Admission Status [Patient Status] [ADT] Routine ADT 10/26/19 11:00 Active EKG Documentation Completion [RC] STAT Care 10/26/19 09:11 Active Oxygen Therapy [RC] PRN Care 10/26/19 11:42 Active Peripheral IV Care [RC] . DIRECTED Care 10/26/19 09:13 Active VTE/DVT Education [RC] PER UNIT ROUTINE Care 10/26/19 11:42 Active Vital Signs [RC] Q4H Care 10/26/19 11:42 Active 2 Gram Sodium Diet [DIET] Diet 10/26/19 Lunch Active Consistent Carbohydrate Diet [DIET] Diet 10/26/19 Dinner Ordered BASIC METABOLIC PANEL,BMP [CHEM] AM Lab 10/27/19 05:11 Ordered BASIC METABOLIC PANEL,BMP [CHEM] Timed Lab 10/26/19 16:00 Ordered CULTURE BLOOD [BC] Stat Lab 10/26/19 10:11 Received CULTURE BLOOD [BC] Stat Lab 10/26/19 11:56 Results MAGNESIUM [CHEM] AM Lab 10/27/19 05:11 Ordered PHOSPHORUS [CHEM] AM Lab 10/27/19 05:11 Ordered Acetaminophen [Tylenol] Med 10/26/19 11:42 Active 650 mg PO Q6H PRN Aspirin Med 10/27/19 09:00 Pending 81 mg PO DAILY Cholecalciferol (Vitamin D3) [Vitamin D3] Med 10/26/19 21:00 Ordered 2,000 unit PO BID Clopidogrel [Plavix] Med 10/27/19 09:00 Ordered 75 mg PO DAILY Escitalopram [Lexapro] Med 10/27/19 09:00 Ordered 10 mg PO DAILY Furosemide [Lasix] Med 10/27/19 09:00 Ordered 40 mg PO DAILY Heparin Sodium Med 10/26/19 14:00 Active 5,000 units SUBCUT Q8HR Insulin Lispro [HumaLOG] Med 10/26/19 12:00 Active See Protocol SUBCUT WITHMEALSANDBED Isosorbide Mononitrate [Imdur] Med 10/27/19 09:00 Ordered 30 mg PO DAILY LORazepam [Ativan] Med 10/27/19 09:00 Ordered 1 mg PO DAILY Ondansetron [Zofran ODT] Med 10/26/19 11:42 Active 4 mg PO Q6H PRN Ondansetron [Zofran] Med 10/26/19 11:42 Active 4 mg IVPUSH Q6H PRN Pharmacy to Dose - Vancomycin Med 10/26/19 12:15 Ordered 1 dose .XX ASDIRECTED Rosuvastatin Calcium [Rosuvastatin Calcium] Med 10/27/19 09:00 Ordered 20 mg PO DAILY Tamsulosin [Flomax] Med 10/27/19 09:00 Ordered 0.4 mg PO DAILY amLODIPine Besylate [Amlodipine Besylate] Med 10/27/19 09:00 Ordered 10 mg PO DAILY carvediloL [Carvedilol] Med 10/26/19 21:00 Ordered 12.5 mg PO BID Blood Culture x2 Reflex Set [OM.PC] Stat Oth 10/26/19 09:56 Ordered Peripheral IV Insertion Adult [OM.PC] Routine Oth 10/26/19 09:12 Ordered Resuscitation Status Routine Resus Stat 10/26/19 11:42 Ordered Medication Orders Acetaminophen (Tylenol) 650 mg PO Q6H PRN PRN Reason: Pain (mild 1-3) Aspirin (Aspirin) 81 mg PO DAILY [facility] Clopidogrel Bisulfate (Plavix) 75 mg PO DAILY [facility] Escitalopram Oxalate (Lexapro) 10 mg PO DAILY [facility] Furosemide (Lasix) 40 mg PO DAILY [facility] Heparin Sodium (Porcine) (Heparin Sodium) 5,000 units SUBCUT Q8HR [facility] Insulin Human Lispro (Humalog) 0 unit SUBCUT WITHMEALSANDBED [facility]; Protocol Isosorbide Mononitrate (Imdur) 30 mg PO DAILY [facility] Lorazepam (Ativan) 1 mg PO DAILY [facility] Non-Formulary Medication (Amlodipine Besylate [Amlodipine Besylate]) 10 mg PO DAILY [facility] Non-Formulary Medication (Carvedilol [Carvedilol]) 12.5 mg PO BID [facility] Non-Formulary Medication (Cholecalciferol (Vitamin D3) [Vitamin D3]) 2,000 unit PO BID [facility] Non-Formulary Medication (Rosuvastatin Calcium [Rosuvastatin Calcium]) 20 mg PO DAILY [facility] Ondansetron HCl (Zofran Odt) 4 mg PO Q6H PRN PRN Reason: nausea, able to take PO Ondansetron HCl (Zofran) 4 mg IVPUSH Q6H PRN PRN Reason: Nausea/Vomiting Tamsulosin HCl (Flomax) 0.4 mg PO DAILY [facility] Vancomycin HCl (Pharmacy To Dose - Vancomycin) 1 dose .XX ASDIRECTED [facility] Assessment/Plan Comment:: #Multifocal pneumonia #Sepsis due to pneumonia: Leukocytosis and tachypnea #Acute respiratory failure with hypoxia: Likely due to multifocal pneumonia and acute CHF Patient with history of multifocal pneumonia with recurrent pleural effusions Chest x-ray shows bilateral congestion Also shows groundglass airspace disease at the lower lung weiss bilaterally concerning for pneumonia. This is worsened since his previous study in July 2019. Start on vancomycin, azithromycin, and Ceftin Follow-up on blood cultures Supplemental oxygen, titrate to SPO2 92% Incentive spirometer If not improving, will transfer to [facility] for consideration of bronchoscopy Recent CTA chest negative for pulmonary embolism #Probable acute on chronic diastolic heart failure: Patient with elevated BNP and chest x-ray showing bilateral pulmonary congestion IV Lasix Daily weights #Acute on CKD: Patient's creatinine is 3.01 today. Creatinine was 1.6 on 10/22/2019 Concern for component of contrast-induced kidney injury in addition to cardiorenal syndrome from CHF IV Lasix Gentle fluid resuscitation Monitor renal function Avoid nephrotoxins If renal function is not improving, will have to transfer to [facility] #Type 2 diabetes: Hold metformin Sliding scale insulin hypoglycemia protocol #Paroxysmal atrial fibrillation Continue Coreg #CAD #Hypertension #Hyperlipidemia Continue home medications #DVT prophylaxis: Heparin #GI prophylaxis: Diabetic diet CODE STATUS: Full code per patient preference
[2019-10-26] MEDS ORDERED: Sodium Chloride 0.9% 1,000 ML IV SCH (12:30)
[2019-10-26] MEDS: Insulin Lispro 100 Units/ML 3 ML Vial SUBCUT SCH ×3 (13:04→20:55)
[2019-10-26 17:29] LABS: ANION GAP 12.1 mEq/L (7-13)
[2019-10-26] MEDS: Heparin Sodium 5,000 Units/ML Vial SUBCUT SCH (17:33)
--- NOTE | 2019-10-26 20:29 | PCM.DCSUM1 ---
Discharge Summary - Hospital Course Free Text/Narrative:: Mr. Conley is a 54-year-old male with medical history significant for CAD distal stent placement, hyperlipidemia, type 2 diabetes, diverticulitis, cholecystectomy, testicular cancer status post exploratory laparotomy with tumor resection and left orchiectomy, CHF, and recurrent pleural effusions and multifocal pneumonia who was sent from the [facility] to the ED with complaints of shortness of breath, hypoxia, and possible CHF exacerbation. R eports that he was discharged from [facility] 2 days ago. Reports that he had presented with chest pressure and he had work-up for pulmonary embolism which was negative. He reports that he underwent coronary angiogram and was told that his stents were patent. Reports that he has had worsening shortness of breath is discharge. Reports that he presented today for follow-up labs and was told to come to the ED because he would need to be transferred to [facility]. Today, patient reports that he has worsening shortness of breath and states that he is unable to take deep breaths because he feels like his lungs are blocked. His O2 saturation in the clinic was reported to be in the 82% on room air. Improved with 2 L of oxygen. Patient reports that he does not take oxygen at baseline. Has nonproductive cough that has been going on for several weeks. Reports chills but denies fevers. Reports intermittent diarrhea and constipation. Progressive weight gain. Denies nausea, seizure, hematuria, wo rsening edema, or any new symptoms. He reports occasional alcohol intake. Does not drink any more than 2 drinks a day. Denies tobacco or illicit drug use. Patient was admitted to our service here in the hospital because of lack of bed availability at [facility]. Plan was to cover with broad-spectrum antibiotics and monitor renal function. He was started on Rocephin and Azithromycin in the ED. Vancomycin was added. He received a dose of IV lasix. Because he recently received contrast and with Cr trending up, he was started on NS at 75 cc/hr due to his history of CHF. Patient was stable until tonight when he started having worsening shortness of breath on oxygen. On room air, patient desaturated to 86%. Patient is being transferred to higher level of care as he is at risk of decompensating at any time. HPI Initial Comments: Mr. Conley is a 54-year-old male with medical history significant for CAD distal stent placement, hyperlipidemia, type 2 diabetes, diverticulitis, cholecystectomy, testicular cancer status post exploratory laparotomy with tumor resection and left orchiectomy, CHF, and recurrent pleural effusions and multifocal pneumonia who was sent from the [facility] to the ED with complaints of shortness of breath, hypoxia, and possible CHF exacerbation. Reports that he was discharged from [facility] 2 days ago. Reports that he had pre sented with chest pressure and he had work-up for pulmonary embolism which was negative. He reports that he underwent coronary angiogram and was told that his stents were patent. Reports that he has had worsening shortness of breath is discharge. Reports that he presented today for follow-up labs and was told to come to the ED because he would need to be transferred to [facility]. Today, patient reports that he has worsening shortness of breath and states that he is unable to take deep breaths because he feels like his lungs are blocked. His O2 saturation in the clinic was reported to be in the 82% on room air. Improved with 2 L of oxygen. Patient reports that he does not take oxygen at baseline. Has nonproductive cough that has been going on for several weeks. Reports chills but denies fevers. Reports intermittent diarrhea and constipation. Progressive weight gain. Denies nausea, seizure, hematuria, worsening edema, or any new symptoms. He reports occasional alcohol intake. Does not drink any more than 2 drinks a day. Denies tobacco or illicit drug use. Diagnosis: Stroke: No - Discharge Data Discharge Date: 10/26/19 Discharge Disposition: DC/Tfer to Acute Hospital 02 Condition: Fair - Referral to Home Health Primary Care Physician: PCP Unobtainable - Discharge Diagnosis/Problem(s) (1) CAD (coronary artery disease) SNOMED Code(s): 20043398 ICD Code: I25.10 - ATHSCL HEART DISEASE OF [place] CORONARY ARTERY W/O ANG PCTRS Status: Acute Current Visit: Yes (2) Diabetes mellitus SNOMED Code(s): 42092175 ICD Code: E11.9 - TYPE 2 DIABETES MELLITUS WITHOUT COMPLICATIONS Status: Acute Current Visit: Yes (3) Paroxysmal A-fib SNOMED Code(s): 828886617 ICD Code: I48.0 - PAROXYSMAL ATRIAL FIBRILLATION Status: Acute Current Visit: Yes (4) Hyperlipidemia SNOMED Code(s): 06881814 ICD Code: E78.5 - HYPERLIPIDEMIA, UNSPECIFIED Status: Acute Current Visit: Yes (5) Anxiety SNOMED Code(s): 53289020 ICD Code: F41.9 - ANXIETY DISORDER, UNSPECIFIED Status: Acute Current Visit: Yes (6) Acute kidney injury superimposed on CKD SNOMED Code(s): 64876012 ICD Code: N17.9 - ACUTE KIDNEY FAILURE, UNSPECIFIED; N18.9 - CHRONIC KIDNEY DISEASE, UNSPECIFIED Status: Acute Current Visit: Yes (7) GISELA (acute kidney injury) SNOMED Code(s): 95954067, 22390433 ICD Code: N17.9 - ACUTE KIDNEY FAILURE, UNSPECIFIED Status: Acute Current Visit: No (8) Acute respiratory failure with hypoxia SNOMED Code(s): 86203712, 442513490 ICD Code: J96.01 - ACUTE RESPIRATORY FAILURE WITH HYPOXIA Status: Acute Current Visit: No (9) Multilobar lung infiltrate SNOMED Code(s): 3247693122850 ICD Code: R91.8 - OTHER NONSPECIFIC ABNORMAL FINDING OF LUNG FIELD Status: Acute Current Visit: No - Discharge Plan *PRESCRIPTION DRUG MONITORING PROGRAM REVIEWED*: Not Applicable *COPY OF PRESCRIPTION DRUG MONITORING REPORT IN PATIENT [place]: Not Applicable Home Medications: Home Meds Aspirin 81 mg PO DAILY 07/29/19 [History] Cholecalciferol (Vitamin D3) [Vitamin D3] 2,000 unit PO BID 07/29/19 [History] Clopidogrel Bisulfate [Clopidogrel] 75 mg PO DAILY 07/29/19 [History] Escitalopram [Lexapro] 10 mg PO BEDTIME 07/29/19 [History] Furosemide 40 mg PO DAILY 07/29/19 [History] Insulin Asp Prot/Insulin Asp [NovoLOG Mix 70-30] See Protocol SQ BID 07/29/19 [History] Isosorbide Mononitrate [Imdur] 30 mg PO DAILY 07/29/19 [History] LORazepam [Lorazepam] 1 mg PO BEDTIME 07/29/19 [History] Potassium Chloride 20 meq PO DAILY 07/29/19 [History] Rosuvastatin Calcium 20 mg PO BEDTIME 07/29/19 [History] Tamsulosin HCl 0.4 mg PO BEDTIME 07/29/19 [History] amLODIPine Besylate [Amlodipine Besylate] 10 mg PO DAILY 07/29/19 [History] carvediloL [Carvedilol] 12.5 mg PO BID 07/29/19 [History] Insulin Detemir [Levemir Flextouch] 20 units SUBCUT BID 10/26/19 [History] VANCOmycin/Water for INJ (PEG) [VANCOmycin 1.5 GM/300 ML Premix] 1.5 gm IV Q24H bag 10/26/19 [Rx] Forms: ED Department Discharge - Discharge Summary/Plan Comment DC Time >30 min.: Yes - General Info Date of Service: 10/26/19 Admission Dx/Problem (Free Text: Admission Diagnosis/Problem Admission Diagnosis/Problem Pneumonia Subjective Update: With worsening respiratory status. Reports worsening shortness of breath. Cough is still nonproductive. Feels anxious. Denies fevers, chills, nausea, vomiting, diarrhea, constipation, dysuria, hematuria, or any new symptoms. - Patient Data Vitals - Most Recent: Last Vital Signs Temp 99 F 10/26/19 17:35 Pulse 93 10/26/19 17:35 Resp 29 H 10/26/19 17:35 BP 146/82 H 10/26/19 17:35 Pulse Ox 90 L 10/26/19 17:35 Weight - Most Recent: 239 lb I&O - Last 24 hours: Intake & Output 10/26/19 10/26/19 10/26/19 06:59 14:59 22:59 Intake Total 91 240 Output Total 300 Balance -209 240 Lab Results - Last 24 hrs: Laboratory Results - last 24 hr 10/26/19 10/26/19 10/26/19 Range/Units 09:26 09:26 10:11 WBC 14.5 H (5.0-10.0) 10^3/uL RBC 3.86 L (4.6-6.2) 10^6/uL Hgb 9.9 L (14.0-18.0) g/dL Hct 31.4 L (40.0-54.0) % MCV 81.3 (80-100) fL MCH 25.6 L (27.0-34.0) pg MCHC 31.5 L (33.0-35.0) g/dL Plt Count 260 (150-450) 10^3/uL Neut % (Auto) 84.9 H (42.2-75.2) % Lymph % (Auto) 4.4 L (20.5-50.1) % [place] % (Auto) 10.0 H (2-8) % Eos % (Auto) 0.5 L (1.0-3.0) % Baso % (Auto) 0.2 (0.0-1.0) % Add Manual Diff Yes Neutrophils % (Manual) 83 H (42-75) % Band Neutrophils % 1 % Lymphocytes % (Manual) 8 L (20-50) % Monocytes % (Manual) 5 (2-8) % Eosinophils % (Manual) 2 (1-3) % Basophils % (Manual) 1 Sodium 136 (136-145) mmol/L Potassium 4.1 (3.5-5.1) mmol/L Chloride 100 (98-107) mmol/L Carbon Dioxide 27 (21-32) mmol/L Anion Gap 13.1 H (7-13) mEq/L BUN 46 H (7-18) mg/dL Creatinine 3.01 H D (0.70-1.30) mg/dL Est Cr Clr Drug Dosing 23.84 mL/min Estimated GFR (MDRD) 22 BUN/Creatinine Ratio 15.3 (No establ ref range) Glucose 206 H (74-99) mg/dL POC Glucose (70-105) mg/dl Lactic Acid 0.9 (0.4-2.0) mmol/L Calcium 8.3 L (8.5-10.1) mg/dL Total Bilirubin 0.4 (0.2-1.0) mg/dL AST 11 L (15-37) U/L ALT 14 L (16-63) U/L Alkaline Phosphatase 77 (46-116) U/L Troponin I < 0.017 (0.000-0.056) ng/mL B-Natriuretic Peptide 468 H (0-100) pg/ml Total Protein 6.7 (6.4-8.2) g/dL Albumin 2.9 L (3.4-5.0) g/dL Globulin 3.8 Albumin/Globulin Ratio 0.76 COVID-19 (ODN) (NEGATIVE) 10/26/19 10/26/19 10/26/19 Range/Units 10:15 12:24 17:09 WBC (5.0-10.0) 10^3/uL RBC (4.6-6.2) 10^6/uL Hgb (14.0-18.0) g/dL Hct (40.0-54.0) % MCV (80-100) fL MCH (27.0-34.0) pg MCHC (33.0-35.0) g/dL Plt Count (150-450) 10^3/uL Neut % (Auto) (42.2-75.2) % Lymph % (Auto) (20.5-50.1) % [place] % (Auto) (2-8) % Eos % (Auto) (1.0-3.0) % Baso % (Auto) (0.0-1.0) % Add Manual Diff Neutrophils % (Manual) (42-75) % Band Neutrophils % % Lymphocytes % (Manual) (20-50) % Monocytes % (Manual) (2-8) % Eosinophils % (Manual) (1-3) % Basophils % (Manual) Sodium (136-145) mmol/L Potassium (3.5-5.1) mmol/L Chloride (98-107) mmol/L Carbon Dioxide (21-32) mmol/L Anion Gap (7-13) mEq/L BUN (7-18) mg/dL Creatinine (0.70-1.30) mg/dL Est Cr Clr Drug Dosing mL/min Estimated GFR (MDRD) BUN/Creatinine Ratio (No establ ref range) Glucose (74-99) mg/dL POC Glucose 204 H 310 H (70-105) mg/dl Lactic Acid (0.4-2.0) mmol/L Calcium (8.5-10.1) mg/dL Total Bilirubin (0.2-1.0) mg/dL AST (15-37) U/L ALT (16-63) U/L Alkaline Phosphatase (46-116) U/L Troponin I (0.000-0.056) ng/mL B-Natriuretic Peptide (0-100) pg/ml Total Protein (6.4-8.2) g/dL Albumin (3.4-5.0) g/dL Globulin Albumin/Globulin Ratio COVID-19 (DON) Negative (NEGATIVE) 10/26/19 Range/Units 17:10 WBC (5.0-10.0) 10^3/uL RBC (4.6-6.2) 10^6/uL Hgb (14.0-18.0) g/dL Hct (40.0-54.0) % MCV (80-100) fL MCH (27.0-34.0) pg MCHC (33.0-35.0) g/dL Plt Count (150-450) 10^3/uL Neut % (Auto) (42.2-75.2) % Lymph % (Auto) (20.5-50.1) % [place] % (Auto) (2-8) % Eos % (Auto) (1.0-3.0) % Baso % (Auto) (0.0-1.0) % Add Manual Diff Neutrophils % (Manual) (42-75) % Band Neutrophils % % Lymphocytes % (Manual) (20-50) % Monocytes % (Manual) (2-8) % Eosinophils % (Manual) (1-3) % Basophils % (Manual) Sodium 135 L (136-145) mmol/L Potassium 4.1 (3.5-5.1) mmol/L Chloride 101 (98-107) mmol/L Carbon Dioxide 26 (21-32) mmol/L Anion Gap 12.1 (7-13) mEq/L BUN 49 H (7-18) mg/dL Creatinine 3.17 H (0.70-1.30) mg/dL Est Cr Clr Drug Dosing 22.63 mL/min Estimated GFR (MDRD) 20 BUN/Creatinine Ratio (No establ ref range) Glucose 289 H (74-99) mg/dL POC Glucose (70-105) mg/dl Lactic Acid (0.4-2.0) mmol/L Calcium 7.8 L (8.5-10.1) mg/dL Total Bilirubin (0.2-1.0) mg/dL AST (15-37) U/L ALT (16-63) U/L Alkaline Phosphatase (46-116) U/L Troponin I (0.000-0.056) ng/mL B-Natriuretic Peptide (0-100) pg/ml Total Protein (6.4-8.2) g/dL Albumin (3.4-5.0) g/dL Globulin Albumin/Globulin Ratio COVID-19 (DON) (NEGATIVE) MERLY Results - Last 24 hrs: Microbiology 10/26/19 11:56 Anaerobic Blood Culture - Final Blood - Venous - Lab Draw Med Orders - Current: Current Medications Acetaminophen (Tylenol) 650 mg PO Q6H PRN PRN Reason: Pain (mild 1-3) Last Admin: 10/26/19 17:44 Dose: 650 mg Documented by: Amlodipine Besylate (Norvasc) 10 mg PO DAILY [facility] Aspirin (Aspirin) 81 mg PO DAILY [facility] Carvedilol (Coreg) 12.5 mg PO BID [facility] Cholecalciferol (Vitamin D3) 50 mcg PO BID [facility] Clopidogrel Bisulfate (Plavix) 75 mg PO DAILY [facility] Escitalopram Oxalate (Lexapro) 10 mg PO BEDTIME [facility] Last Admin: 10/26/19 20:15 Dose: 10 mg Documented by: Furosemide (Lasix) 40 mg PO DAILY [facility] Heparin Sodium (Porcine) (Heparin Sodium) 5,000 units SUBCUT Q8HR [facility] Last Admin: 10/26/19 17:33 Dose: 5,000 units Documented by: Vancomycin HCl 1.5 gm/ Premix 300 mls @ 200 mls/hr IV Q24H [facility] Last Infusion: 10/26/19 14:45 Dose: Infused Documented by: Insulin Human Lispro (Humalog) 0 unit SUBCUT WITHMEALSANDBED [facility]; Protocol Last Admin: 10/26/19 17:33 Dose: 8 units Documented by: Isosorbide Mononitrate (Imdur) 30 mg PO DAILY [facility] Lorazepam (Ativan) 1 mg PO BEDTIME [facility] Last Admin: 10/26/19 20:15 Dose: 1 mg Documented by: Ondansetron HCl (Zofran Odt) 4 mg PO Q6H PRN PRN Reason: nausea, able to take PO Ondansetron HCl (Zofran) 4 mg IVPUSH Q6H PRN PRN Reason: Nausea/Vomiting Rosuvastatin Calcium (Crestor) 20 mg PO BEDTIME [facility] Tamsulosin HCl (Flomax) 0.4 mg PO BEDTIME [facility] Vancomycin HCl (Pharmacy To Dose - Vancomycin) 0 dose .XX ASDIRECTED [facility] Discontinued Medications Furosemide (Lasix) 40 mg IVPUSH NOW ONE Stop: 10/26/19 12:01 Last Admin: 10/26/19 13:06 Dose: 40 mg Documented by: Ceftriaxone Sodium 2 gm/ (Sodium Chloride) 100 mls @ 200 mls/hr IV ONETIME ONE Stop: 10/26/19 10:26 Last Infusion: 10/26/19 13:03 Dose: Infused Documented by: Sodium Chloride (Normal Saline) Confirm Administered Dose 100 mls @ as directed .ROUTE .STK-MED ONE Stop: 10/26/19 10:13 Last Admin: 10/26/19 10:28 Dose: Not Given Documented by: Sodium Chloride (Normal Saline) 1,000 mls @ 75 mls/hr IV ASDIRECTED JIGNESH Last Admin: 10/26/19 13:12 Dose: 75 mls/hr Documented by: Azithromycin 500 mg/ Sodium (Chloride) 250 mls @ 250 mls/hr IV ONETIME ONE Stop: 10/26/19 15:59 Last Infusion: 10/26/19 16:28 Dose: Infused Documented by: Sodium Chloride (Saline Flush) 10 ml FLUSH ASDIRECTED PRN PRN Reason: Keep Vein Open Last Admin: 10/26/19 09:29 Dose: 10 ml Documented by: - Exam Quality Assessment: Reports: Supplemental Oxygen General: Reports: Alert, Oriented, Cooperative, Moderate Distress HEENT: Reports: Pupils Equal, Pupils Reactive, Mucous Membr. Moist/[place] Lungs: Reports: Clear to Auscultation, Normal Respiratory Effort Cardiovascular: Reports: Regular Rate, Regular Rhythm GI/Abdominal Exam: Normal Bowel Sounds, Soft, Non-Tender, No Organomegaly, No Distention Extremities: Normal Inspection, Normal Range of Motion, Pedal Edema Skin: Reports: Warm, Dry, Intact Wound/Incisions: Reports: Healing Well Neurological: Reports: No New Focal Deficit Psy/Mental Status: Reports: Alert, Normal Affect, Normal Mood
[2019-10-26] MEDS ORDERED: Cholecalciferol (Vitamin D3) 25 MCG Tab PO SCH (21:00)
[2019-10-26] MEDS ORDERED: Tamsulosin 0.4 MG Cap.ER PO SCH (21:00)
[2019-10-26] MEDS ORDERED: LORazepam 1 MG Tab PO SCH (21:00)
[2019-10-26] MEDS ORDERED: Escitalopram 10 MG Tab PO SCH (21:00)
[2019-10-26] MEDS ORDERED: Carvedilol 6.25 MG Tab PO SCH (21:00)
[2019-10-27] MEDS: Heparin Sodium 5,000 Units/ML Vial SUBCUT SCH (00:49)
[2019-10-27] MEDS ORDERED: Aspirin 81 MG Tab.Chew PO SCH (09:00)
[2019-10-27] MEDS ORDERED: Isosorbide Mononitrate 30 MG Tab.ER PO SCH (09:00)
[2019-10-27] MEDS ORDERED: amLODIPine 5 MG Tab PO SCH (09:00)
[2019-10-27] MEDS ORDERED: Clopidogrel 75 MG Tab PO SCH (09:00)
[2019-10-27] MEDS ORDERED: Furosemide 40 MG Tab PO SCH (09:00)
[2019-10-27] MEDS ORDERED: Rosuvastatin 10 MG Tab PO SCH (21:00)
== END 2019-10-26 21:00 | DRG 720 ==
LOC: DL.ED 09:04 → EEVIPCON 11:00 → DL.MS 11:00
PROVIDERS: ADMIT Internal Medicine; ATTEND Internal Medicine
DX: A41.9 Sepsis, unspecified organism (principal); I50.33 Acute on chronic diastolic (congestive) heart failure; J96.01 Acute respiratory failure with hypoxia; J18.9 Pneumonia, unspecified organism; I13.0 Hypertensive heart and chronic kidney disease with heart failure and stage 1 through stage 4 chronic kidney disease, or unspecified chronic kidney disease; Z20.828 Contact with and (suspected) exposure to other viral communicable diseases; N17.9 Acute kidney failure, unspecified; E11.22 Type 2 diabetes mellitus with diabetic chronic kidney disease; I25.10 Atherosclerotic heart disease of native coronary artery without angina pectoris; I48.0 Paroxysmal atrial fibrillation; E78.5 Hyperlipidemia, unspecified; F41.9 Anxiety disorder, unspecified; E78.00 Pure hypercholesterolemia, unspecified; F32.9 Major depressive disorder, single episode, unspecified; E66.9 Obesity, unspecified; D64.9 Anemia, unspecified; N18.9 Chronic kidney disease, unspecified; Z95.9 Presence of cardiac and vascular implant and graft, unspecified; Z90.49 Acquired absence of other specified parts of digestive tract; Z85.47 Personal history of malignant neoplasm of testis; Z88.5 Allergy status to narcotic agent; Z91.041 Radiographic dye allergy status; Z88.8 Allergy status to other drugs, medicaments and biological substances; Z79.4 Long term (current) use of insulin; Z79.899 Other long term (current) drug therapy; Z68.39 Body mass index [BMI] 39.0-39.9, adult
CPT/HCPCS: 36415; 71046; 80048; 80053; 82962; 83605; 83880; 84484; 85025; 87040; 93005; 93010; 99284; 99285-25; A9270-GY; J0456; J0696; J1644; J1815-GY; J1940; J3370; J7030; J7050; U0002

== ENCOUNTER 2019-11-10 05:11 | Day surgery (SDC) | payer BC ==
[~2019-11-10 05:11] MED LIST: Sodium Chloride 0.9% 10 ML Syringe FLUSH PRN
[2019-11-10] MEDS ORDERED: Midazolam 1 MG/ML 2 ML SDV IV ONE ×3 (05:12→06:34)
[2019-11-10] MEDS ORDERED: fentaNYL 100 MCG/2 ML SDV IV ONE ×3 (05:12→06:33)
[2019-11-10] MEDS ORDERED: Dextrose 5%-0.45% NaCl 1,000 ML IV SCH (06:00)
[2019-11-10] MEDS ORDERED: fentaNYL 100 MCG/2 ML SDV ONE (06:09)
[2019-11-10] MEDS ORDERED: Midazolam 1 MG/ML 2 ML SDV ONE (06:09)
--- NOTE | 2019-11-10 12:30 | OR ---
DATE: 11/10/2019 PROCEDURE: Esophagogastroduodenoscopy and multiple pinch biopsies. INSTRUMENT USED: [id number] Olympus video panendoscope. PREMEDICATIONS: No oral or topical anesthesia used. Fentanyl 100 mcg intravenous, Versed 2 mg intravenous, nasal O2 cannula. The procedure was done under pulse oximetry, BP recording, and athletic monitor. INDICATIONS: The patient with unexplained iron deficiency anemia. Esophagogastroduodenoscopy is performed for detection of any active erosive lesions, Velásquez esophagus and/or malignancy also under consideration, H pylori status to be determined, small bowel biopsies to be obtained for celiac disease if indicated, endoscopic hemostasis therapy if needed. PROCEDURE IN DETAIL: The scope was passed with ease. Adequate visualization of the esophagus was made from proximal to distal areas. No upper esophageal lesions identified. No distal esophageal stricture. No uphill or downhill esophageal varices. No Lina-Colvin tear. No evidence of erosive esophagitis by [place] criteria. No esophageal polyp or tumor mass identified. Z-line was seen at around 40 cm distal to the oral verge, configuration consistent with grade 1 by ZAP classification. No proximal gastric varices noted. Gastric fundus examination by retroflexion showed no polypoid lesions. No gastric ulcer, malignant mass, or vascular ectasia identified. Duodenal bulb showed no ulcer. Visualized second part of the duodenum was unremarkable. Multiple pinch biopsies, 4 in number, were taken from different areas of the second part of the duodenum and tissues were also obtained from duodenal bulb at 9 and 12 o'clock positions and sent for histopathologic evidence of celiac disease. Multiple pinch biopsies were also taken from the gastric antrum and proximal body and sent for PyloriTek test for H pylori and histopathology. No bleeding was noted from any of the visualized areas at the completion of examination. Photographs were taken of the duodenal bulb, gastric antrum, fundus, and distal esophagus. IMPRESSION: Normal study. The patient tolerated the procedure well. [facility] /[id number]
== END 2019-11-10 08:50 | disposition home or self-care (01) ==
LOC: DL.ENDO 05:11
PROVIDERS: ATTEND Internal Medicine Gastroenterology
DX: K29.50 Unspecified chronic gastritis without bleeding (principal); K29.80 Duodenitis without bleeding; K31.89 Other diseases of stomach and duodenum; E66.09 Other obesity due to excess calories; G47.30 Sleep apnea, unspecified; E78.5 Hyperlipidemia, unspecified; I12.9 Hypertensive chronic kidney disease with stage 1 through stage 4 chronic kidney disease, or unspecified chronic kidney disease; D50.9 Iron deficiency anemia, unspecified; E11.22 Type 2 diabetes mellitus with diabetic chronic kidney disease; N18.9 Chronic kidney disease, unspecified; F41.1 Generalized anxiety disorder; I48.0 Paroxysmal atrial fibrillation; Z90.79 Acquired absence of other genital organ(s); Z85.89 Personal history of malignant neoplasm of other organs and systems; Z86.79 Personal history of other diseases of the circulatory system; Z87.891 Personal history of nicotine dependence; Z90.49 Acquired absence of other specified parts of digestive tract; Z91.041 Radiographic dye allergy status; Z87.01 Personal history of pneumonia (recurrent); Z88.1 Allergy status to other antibiotic agents; Z88.8 Allergy status to other drugs, medicaments and biological substances; Z88.5 Allergy status to narcotic agent; Z68.36 Body mass index [BMI] 36.0-36.9, adult
CPT/HCPCS: 87077; J2250; J3010; J7042

== ENCOUNTER 2020-02-19 22:28 | Emergency (ER) | payer BC ==
[2020-02-19] MEDS ORDERED: Aspirin 81 MG Tab.Chew PO ONE (22:36)
[2020-02-19] MEDS ORDERED: Nitroglycerin 0.4 MG Tab.SL SL ONE ×3 (22:36→23:31)
[2020-02-19] MEDS ORDERED: Sodium Chloride 0.9% 1,000 ML IV ONE (22:36)
[2020-02-19] MEDS ORDERED: Furosemide 40 MG/4 ML VIAL IVPUSH ONE (22:45)
--- NOTE | 2020-02-19 23:06 | CR ---
PROCEDURE INFORMATION: Exam: XR Chest, 1 View Exam date and time: 02/19/2020 10:54 PM Age: 54 years old Clinical indication: Other: Chest pain, covid x1 month TECHNIQUE: Imaging protocol: XR of the chest Views: 1 view. COMPARISON: No relevant prior studies available. FINDINGS: Lungs: Suspicion of atelectasis in the right lung base behind the liver. No obvious airspace disease in the lungs. Pleural space: Slight motion blur, but no suggestion of a pneumothorax. No obvious pleural fluid. Heart/Mediastinum: Heart size near the upper limits of normal. Diaphragm: Elevation of the right hemidiaphragm. Bones/joints: No apparent acute bony disease. IMPRESSION: Possible atelectasis in the right lung base related to the elevation of the right hemidiaphragm. No apparent acute disease elsewhere.
[2020-02-19 23:16] LABS: ANION GAP 11.2 mEq/L (7-13); CHLORIDE,CL 100 mmol/L (98-107); SODIUM,NA 137 mmol/L (136-145)
[2020-02-19] MEDS ORDERED: Potassium Chloride 10 MEQ Tab.ER PO ONE (23:20)
--- NOTE | 2020-02-20 01:24 | EDM.PDOC ---
ED HPI GENERAL MEDICAL PROBLEM - General Chief Complaint: Chest Pain Stated Complaint: FEELS [place] A HEART ATTACK Time Seen by Provider: 02/19/20 22:40 Source of Information: Reports: Patient History Limitations: Reports: No Limitations - History of Present Illness INITIAL COMMENTS - FREE TEXT/NARRATIVE: ED with c/o onset chest pain 1 hour ago, worsening past 30 minutes, SOB, Feels like previous heart attack, Difficulty catching breath. Hx [place] x 2. last 2 years ago. Stent x 1. COVID one month ago. IDDM. Reports compliance with medication. No recent fever chills or cough. Denies change in edema of lower legs, feet. Recent sleep study and oxygen in upper 70"s while awake, Hoping some time this week or next will get " sleep machine and home oxygen" Left Chest Pain Score (Numeric/FACES): 8 - Related Data Allergies Allergy/AdvReac Type Severity Reaction Status Date / Time lisinopril Allergy Severe Anaphylactic Verified 11/10/19 05:50 Shock morphine Allergy Severe Hives Verified 11/10/19 05:50 contrast dye Allergy Severe Other Uncoded 11/10/19 05:50 Home Meds: Home Meds Clopidogrel Bisulfate [Clopidogrel] 75 mg PO DAILY 07/29/19 [History] Escitalopram [Lexapro] 10 mg PO BEDTIME 07/29/19 [History] Furosemide 40 mg PO BID 07/29/19 [History] Insulin Asp Prot/Insulin Asp [NovoLOG Mix 70-30] See Protocol SQ BID 07/29/19 [History] LORazepam [Lorazepam] 1 mg PO BEDTIME 07/29/19 [History] Potassium Chloride 20 meq PO DAILY 07/29/19 [History] Rosuvastatin Calcium 40 mg PO BEDTIME 07/29/19 [History] Tamsulosin HCl 0.4 mg PO BEDTIME 07/29/19 [History] carvediloL [Carvedilol] 25 mg PO BID 07/29/19 [History] Insulin Detemir [Levemir Flextouch] 25 units SUBCUT BID 10/26/19 [History] Apixaban [Eliquis] 5 mg PO BID 11/08/19 [History] Cholecalciferol (Vitamin D3) [Vitamin D3] 10 mcg PO BID 11/08/19 [History] Fluticasone Propionate [Flovent] 1 spray INH DAILY PRN 11/08/19 [History] Multivitamin [Multivitamins] 1 tab PO DAILY 11/08/19 [History] Nitroglycerin 0.4 mg PO .[id number] PRN 11/08/19 [History] Pantoprazole Sodium [Protonix] 40 mg PO DAILY 11/08/19 [History] amLODIPine Besylate [Amlodipine Besylate] 5 mg PO DAILY 11/08/19 [History] Past Medical History HEENT History: Reports: Allergic Rhinitis, Impaired Vision Other HEENT History: wears glasses Cardiovascular History: Reports: Afib, Angina, CAD, Heart Failure, High Cholesterol, Hypertension, [place], Stents Respiratory History: Reports: Pneumonia, Recurrent, Sleep Apnea, SOB Gastrointestinal History: Reports: Cholelithiasis, Diverticulosis, GERD Genitourinary History: Reports: BPH, Prostate Disorder Musculoskeletal History: Reports: Arthritis, Back Pain, Chronic Neurological History: Reports: None Psychiatric History: Reports: Anxiety Endocrine/Metabolic History: Reports: Diabetes, Type II, IDDM, Obesity/BMI 30+ Hematologic History: Reports: Anemia Immunologic History: Reports: None Oncologic (Cancer) History: Reports: Other (See Below) Other Oncologic History: Lymphatic and testicular Dermatologic History: Reports: None - Infectious Disease History Infectious Disease History: Reports: Chicken Pox, Influenza, MRSA, Novel Coronavirus - Past Surgical History Head Surgeries/Procedures: Reports: None HEENT Surgical History: Reports: None Cardiovascular Surgical History: Reports: Coronary Artery Stent GI Surgical History: Reports: Appendectomy, Cholecystectomy Male Surgical History: Reports: Other (See Below) Other Male Surgeries/Procedures: left testicle removed Endocrine Surgical History: Reports: None Musculoskeletal Surgical History: Reports: Other (See Below) Other Musculoskeletal Surgeries/Procedures:: Back and neck injections for chronic pain. Left hand carpal tunnel surgery Oncologic Surgical History: Reports: None Social & Family History - Family History Family Medical History: No Pertinent Family History - Tobacco Use Tobacco Use Status *Q: Never Tobacco User Second Hand Smoke Exposure: Yes - Caffeine Use Caffeine Use: Reports: Soda - Recreational Drug Use Recreational Drug Use: No - Living Situation & Occupation Living situation: Reports: Single, Alone ED ROS GENERAL - Review of Systems Review Of Systems: Comprehensive ROS is negative, except as noted in HPI. ED EXAM, GENERAL - Physical Exam Exam: See Below Exam Limited By: No Limitations General Appearance: Alert, Mild Distress, Obese Eye Exam: Bilateral Eye: EOMI Ears: Normal External Exam Nose: Normal Inspection Throat/Mouth: Normal Inspection Head: Atraumatic, Normocephalic, Sinus Tenderness Respiratory/Chest: Decreased Breath Sounds (bilateral bases), Wheezing (intermittent, clears with deep breath) Cardiovascular: Normal Peripheral Pulses, Regular Rate, Rhythm, Tachycardia (110's on presentation). No: No Murmur GI/Abdominal: Normal Bowel Sounds, Soft Back Exam: Normal Inspection, Full Range of Motion Extremities: Normal Inspection, Normal Range of Motion, Non-Tender, Pedal Edema (trace) Neurological: Alert, Oriented, Normal Cognition Psychiatric: Anxious (mild) Skin Exam: Warm, Dry, Intact Course - Vital Signs Last Recorded V/S: Last Vital Signs Temp 98.6 F 02/19/20 22:41 Pulse 105 H 02/19/20 22:41 Resp 24 H 02/19/20 22:41 BP 159/83 H 02/19/20 23:35 Pulse Ox 93 L 02/19/20 22:41 - Orders/Labs/Meds Labs: Laboratory Tests 02/19/20 02/19/20 02/19/20 Range/Units 22:47 22:47 22:47 WBC 11.9 H (5.0-10.0) 10^3/uL RBC 4.48 L (4.6-6.2) 10^6/uL Hgb 11.6 L D (14.0-18.0) g/dL Hct 35.7 L (40.0-54.0) % MCV 79.7 L (80-100) fL MCH 25.9 L (27.0-34.0) pg MCHC 32.5 L (33.0-35.0) g/dL Plt Count 368 D (150-450) 10^3/uL Neut % (Auto) 80.1 H (42.2-75.2) % Lymph % (Auto) 10.0 L (20.5-50.1) % Grand % (Auto) 6.6 (2-8) % Eos % (Auto) 3.0 (1.0-3.0) % Baso % (Auto) 0.3 (0.0-1.0) % PT 10.5 (9.0-12.0) SEC INR 1.1 (0.9-1.2) D-Dimer, Quantitative 510 H (0-400) ng/mL Sodium 137 (136-145) mmol/L Potassium 3.2 L (3.5-5.1) mmol/L Chloride 100 (98-107) mmol/L Carbon Dioxide 29 (21-32) mmol/L Anion Gap 11.2 (7-13) mEq/L BUN 39 H (7-18) mg/dL Creatinine 1.95 H D (0.70-1.30) mg/dL Est Cr Clr Drug Dosing TNP Estimated GFR (MDRD) 36 BUN/Creatinine Ratio 20.0 (No establ ref range) Glucose 191 H (74-99) mg/dL Calcium 8.8 (8.5-10.1) mg/dL Magnesium 1.5 L (1.8-2.4) mg/dL Total Bilirubin 0.4 (0.2-1.0) mg/dL AST 24 (15-37) U/L ALT 32 (16-63) U/L Alkaline Phosphatase 114 (46-116) U/L Troponin I 0.023 (0.000-0.056) ng/mL B-Natriuretic Peptide 332 H (0-100) pg/ml Total Protein 6.4 (6.4-8.2) g/dL Albumin 2.8 L (3.4-5.0) g/dL Globulin 3.6 Albumin/Globulin Ratio 0.78 Amylase 28 (25-115) U/L Lipase 95 (73-393) U/L Meds: Medications Discontinued Medications Generic Name Dose Route Start Last Admin Trade Name Freq PRN Reason Stop Dose Admin Aspirin 324 mg 02/19/20 22:36 02/19/20 22:55 Aspirin PO 02/19/20 22:37 324 mg ONETIME ONE Administration Furosemide 40 mg 02/19/20 22:45 02/19/20 22:58 Lasix IVPUSH 02/19/20 22:46 40 mg NOW ONE Administration Sodium Chloride 1,000 mls @ 25 mls/hr 02/19/20 22:36 02/19/20 22:56 Normal Saline IV 02/21/20 14:35 25 mls/hr .BOLUS ONE Administration Nitroglycerin 0.4 mg 02/19/20 22:36 02/19/20 22:56 Nitrostat SL 02/19/20 22:37 0.4 mg ONETIME ONE Administration Nitroglycerin 0.4 mg 02/19/20 23:05 02/19/20 23:06 Nitrostat SL 02/19/20 23:06 0.4 mg ONETIME ONE Administration Nitroglycerin 0.4 mg 02/19/20 23:31 02/19/20 23:35 Nitrostat SL 02/19/20 23:32 0.4 mg ONETIME ONE Administration Potassium Chloride 20 meq 02/19/20 23:20 02/19/20 23:27 Klor-Con 10 PO 02/19/20 23:21 20 meq ONETIME ONE Administration - Re-Assessments/Exams Free Text/Narrative Re-Assessment/Exam: 02/20/20 01:[address] Santos, recommend tx to [facility] r/t comorbidity and prior health hx. Dr Sheriff accepting. Patient expresses reluctance for [facility] tx. Refuses tx via Ambulance. [facility], per patient request. No bed available until at earliest noon tomorrow. Patient informed of statutus of bed. Does agree to [facility] but continues to refuse ambulance transfer. will transport. Risk for change , decompensation, return of chest discussed with patient and . Departure - Departure Time of Disposition: 01:15 Disposition: DC/Tfer to Acute Hospital 02 Reason for Transfer *Q: Other Condition: Undetermined Clinical Impression: IDDM (insulin dependent diabetes mellitus), History of COPD, Hypoxia CAD (coronary artery disease) Qualifiers: Coronary Disease-Associated Artery/Lesion type: unspecified vessel or lesion type [place] vs. transplanted heart: [place] heart Associated angina: with stable angina Qualified Code(s): I25.118 - Atherosclerotic heart disease of [place] coronary artery with other forms of angina pectoris Chest pain Qualifiers: Chest pain type: unspecified Qualified Code(s): R07.9 - Chest pain, unspecified CHF (congestive heart failure) Qualifiers: Heart failure type: unspecified Heart failure chronicity: acute Qualified Code(s): I50.9 - Heart failure, unspecified Forms: ED Department Discharge Sepsis Event Note (ED) - Evaluation Sepsis Screening Result: No Definite Risk - Focused Exam Vital Signs: Vital Signs Temp Pulse Resp BP BP Pulse Ox 02/19/20 23:35 159/83 H 02/19/20 23:06 152/81 H 02/19/20 22:56 163/84 H 02/19/20 22:41 98.6 F 105 H 24 H 174/91 H 93 L
== END 2020-02-20 01:36 ==
LOC: DL.ED 22:28
DX: I25.118 Atherosclerotic heart disease of native coronary artery with other forms of angina pectoris (principal); I11.0 Hypertensive heart disease with heart failure; I50.9 Heart failure, unspecified; J44.9 Chronic obstructive pulmonary disease, unspecified; R09.02 Hypoxemia; R00.0 Tachycardia, unspecified; I48.91 Unspecified atrial fibrillation; E78.00 Pure hypercholesterolemia, unspecified; I25.2 Old myocardial infarction; K21.9 Gastro-esophageal reflux disease without esophagitis; N40.0 Benign prostatic hyperplasia without lower urinary tract symptoms; N42.9 Disorder of prostate, unspecified; F41.9 Anxiety disorder, unspecified; E11.9 Type 2 diabetes mellitus without complications; D64.9 Anemia, unspecified; E66.9 Obesity, unspecified; Z68.38 Body mass index [BMI] 38.0-38.9, adult; Z86.19 Personal history of other infectious and parasitic diseases; Z77.22 Contact with and (suspected) exposure to environmental tobacco smoke (acute) (chronic); Z88.8 Allergy status to other drugs, medicaments and biological substances; Z88.5 Allergy status to narcotic agent; Z91.041 Radiographic dye allergy status; Z79.02 Long term (current) use of antithrombotics/antiplatelets; Z79.899 Other long term (current) drug therapy; Z79.4 Long term (current) use of insulin; Z79.01 Long term (current) use of anticoagulants
CPT/HCPCS: 36415; 71045; 80053; 82150; 83690; 83735; 83880; 84484; 85025; 85379; 85610; 93005; 96374; 99285; A9270; J1940; J7030

== ENCOUNTER 2020-07-06 19:14 | Emergency (ER) | payer BC, OTHER ==
[2020-07-06] MEDS ORDERED: Cyclobenzaprine 10 MG Tab PO ONE (19:15)
--- NOTE | 2020-07-06 19:39 | EDM.PDOC ---
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 He was up about 4 feet when he lost his balance and fell. notes that he tumbled forward and appeared to roll. He hit his head on the truck then rolled and hit his head on the ground. Possible LOC for a few seconds. He had instant pain in his head, the lower part of the back of his neck, his right shoulder and left leg. He notes tingling in his left hand that is also new. This occurred about 30 minutes prior to arrival. Right Shoulder Pain Score (Numeric/FACES): 10 Neck Pain Score (Numeric/FACES): 10 - Related Data Allergies Allergy/AdvReac Type Severity Reaction Status Date / Time lisinopril Allergy Severe Anaphylactic Verified 07/06/20 20:18 Shock morphine Allergy Severe Hives Verified 07/06/20 20:18 contrast dye Allergy Severe Other Uncoded 07/06/20 20:18 Home Meds: Home Meds Clopidogrel Bisulfate [Clopidogrel] 75 mg PO DAILY 07/29/19 [History] Escitalopram [Lexapro] 10 mg PO BEDTIME 07/29/19 [History] Furosemide 40 mg PO BID 07/29/19 [History] Insulin Asp Prot/Insulin Asp [NovoLOG Mix 70-30] See Protocol SQ BID 07/29/19 [History] LORazepam [Lorazepam] 1 mg PO BEDTIME 07/29/19 [History] Potassium Chloride 20 meq PO DAILY 07/29/19 [History] Rosuvastatin Calcium 40 mg PO BEDTIME 07/29/19 [History] Tamsulosin HCl 0.4 mg PO BEDTIME 07/29/19 [History] carvediloL [Carvedilol] 25 mg PO BID 07/29/19 [History] Insulin Detemir [Levemir Flextouch] 25 units SUBCUT BID 10/26/19 [History] Apixaban [Eliquis] 5 mg PO BID 11/08/19 [History] Cholecalciferol (Vitamin D3) [Vitamin D3] 10 mcg PO BID 11/08/19 [History] Fluticasone Propionate [Flovent] 1 spray INH DAILY PRN 11/08/19 [History] Multivitamin [Multivitamins] 1 tab PO DAILY 11/08/19 [History] Nitroglycerin 0.4 mg PO .[id number] PRN 11/08/19 [History] Pantoprazole Sodium [Protonix] 40 mg PO DAILY 11/08/19 [History] amLODIPine Besylate [Amlodipine Besylate] 5 mg PO DAILY 11/08/19 [History] Past Medical History HEENT History: Reports: Allergic Rhinitis, Impaired Vision Other HEENT History: wears glasses Cardiovascular History: Reports: Afib, Angina, CAD, Heart Failure, High Cholesterol, Hypertension, [place], Stents Respiratory History: Reports: Pneumonia, Recurrent, Sleep Apnea, SOB Gastrointestinal History: Reports: Cholelithiasis, Diverticulosis, GERD Genitourinary History: Reports: BPH, Prostate Disorder Musculoskeletal History: Reports: Arthritis, Back Pain, Chronic Neurological History: Reports: None Psychiatric History: Reports: Anxiety Endocrine/Metabolic History: Reports: Diabetes, Type II, IDDM, Obesity/BMI 30+ Hematologic History: Reports: Anemia Immunologic History: Reports: None Oncologic (Cancer) History: Reports: Other (See Below) Other Oncologic History: Lymphatic and testicular Dermatologic History: Reports: None - Infectious Disease History Infectious Disease History: Reports: Chicken Pox, Influenza, MRSA, Novel [place] navirus - Past Surgical History Head Surgeries/Procedures: Reports: None HEENT Surgical History: Reports: None Cardiovascular Surgical History: Reports: Coronary Artery Stent GI Surgical History: Reports: Appendectomy, Cholecystectomy Male Surgical History: Reports: Other (See Below) Other Male Surgeries/Procedures: left testicle removed Endocrine Surgical History: Reports: None Musculoskeletal Surgical History: Reports: Other (See Below) Other Musculoskeletal Surgeries/Procedures:: Back and neck injections for chronic pain. Left hand carpal tunnel surgery Oncologic Surgical History: Reports: None Social & Family History - Family History Family Medical History: No Pertinent Family History - Caffeine Use Caffeine Use: Reports: Soda - Living Situation & Occupation Living situation: Reports: Single, Alone ED ROS GENERAL - Review of Systems Review Of Systems: Comprehensive ROS is negative, except as noted in HPI. ED EXAM, HEAD INJURY - Physical Exam Exam: See Below Exam Limited By: No Limitations General Appearance: Alert, WD/WN Head: Normocephalic, Scalp Abrasions (just to the right of midline posterior, about 1.5 cm in diameter) Ears: Normal External Exam Nose: Normal Inspection, No Blood Throat/Mouth: Normal Inspection Neck: Muscle Spasm, Painful Range of Motion, Paraspinous Muscle Tender (R>L) Respiratory: No Respiratory Distress, Lungs Clear, Normal Breath Sounds, No Accessory Muscle Use, Chest Non-Tender Cardiovascular: Normal Peripheral Pulses, Regular Rate, Rhythm, No Edema, No Murmur GI/Abdominal Exam: Normal Bowel Sounds, Soft, Non-Tender, No Distention, Pelvis Stable Back Exam: Normal Inspection, Full Range of Motion Extremities: Arm Pain (right shoulder pain with lump over AC joint.), Leg Pain (left lower leg be pain with abrasions noted. 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 abrasions on left lower extremity over the be ranging from 0.5 cm to 2 cm in diameter. ) - Otoniel Coma Score Best Eye Response ([place]): (4) Open Spontaneously Best Verbal Response (Otoniel): (5) Oriented Best Motor Response ([place]ton[place]): (6) Obeys Commands Course - Orders/Labs/Meds Orders: Active Orders 24 hr Category Date Time Status EKG Documentation Completion [RC] STAT Care 07/06/20 19:33 Active Peripheral IV Care [RC] . DIRECTED Care 07/06/20 19:42 Active Sodium Chloride 0.9% [Saline Flush] Med 07/06/20 19:41 Active 10 ml FLUSH ASDIRECTED PRN Peripheral IV Insertion Adult [OM.PC] Stat Oth 07/06/20 19:41 Ordered Medication Orders Sodium Chloride (Sodium Chloride 0.9% 10 Ml Syringe) 10 ml FLUSH ASDIRECTED PRN PRN Reason: Keep Vein Open Last Admin: 07/06/20 19:54 Dose: 10 ml Documented by: SANNA Labs: Laboratory Tests 07/06/20 07/06/20 07/06/20 Range/Units 19:50 19:50 19:50 WBC 9.4 (5.0-10.0) 10^3/uL RBC 4.65 (4.6-6.2) 10^6/uL Hgb 12.1 L (14.0-18.0) g/dL Hct 36.9 L (40.0-54.0) % MCV 79.4 L (80-100) fL MCH 26.0 L (27.0-34.0) pg MCHC 32.8 L (33.0-35.0) g/dL Plt Count 317 (150-450) 10^3/uL Neut % (Auto) 72.9 (42.2-75.2) % Lymph % (Auto) 15.0 L (20.5-50.1) % [place] % (Auto) 9.7 H (2-8) % Eos % (Auto) 2.1 (1.0-3.0) % Baso % (Auto) 0.3 (0.0-1.0) % PT 10.8 (9.0-12.0) SEC INR 1.1 (0.9-1.2) APTT 23.5 (22.0-34.0) SEC Sodium 137 (136-145) mmol/L Potassium 4.2 (3.5-5.1) mmol/L Chloride 101 (98-107) mmol/L Carbon Dioxide 26 (21-32) mmol/L Anion Gap 14.2 H (7-13) mEq/L BUN 43 H (7-18) mg/dL Creatinine 2.46 H (0.70-1.30) mg/dL Est Cr Clr Drug Dosing TNP Estimated GFR (MDRD) 27 BUN/Creatinine Ratio 17.5 (No establ ref range) Glucose 168 H (70-99) mg/dL Calcium 7.9 L (8.5-10.1) mg/dL Total Bilirubin 0.5 (0.2-1.0) mg/dL AST 22 (15-37) U/L ALT 23 (16-63) U/L Alkaline Phosphatase 101 (46-116) U/L Total Protein 6.0 L (6.4-8.2) g/dL Albumin 2.7 L (3.4-5.0) g/dL Globulin 3.3 Albumin/Globulin Ratio 0.82 Ethyl Alcohol (0) mg/dL 07/06/20 Range/Units 19:50 WBC (5.0-10.0) 10^3/uL RBC (4.6-6.2) 10^6/uL Hgb (14.0-18.0) g/dL Hct (40.0-54.0) % MCV (80-100) fL MCH (27.0-34.0) pg MCHC (33.0-35.0) g/dL Plt Count (150-450) 10^3/uL Neut % (Auto) (42.2-75.2) % Lymph % (Auto) (20.5-50.1) % [place] % (Auto) (2-8) % Eos % (Auto) (1.0-3.0) % Baso % (Auto) (0.0-1.0) % PT (9.0-12.0) SEC INR (0.9-1.2) APTT (22.0-34.0) SEC Sodium (136-145) mmol/L Potassium (3.5-5.1) mmol/L Chloride (98-107) mmol/L Carbon Dioxide (21-32) mmol/L Anion Gap (7-13) mEq/L BUN (7-18) mg/dL Creatinine (0.70-1.30) mg/dL Est Cr Clr Drug Dosing Estimated GFR (MDRD) BUN/Creatinine Ratio (No establ ref range) Glucose (70-99) mg/dL Calcium (8.5-10.1) mg/dL Total Bilirubin (0.2-1.0) mg/dL AST (15-37) U/L ALT (16-63) U/L Alkaline Phosphatase (46-116) U/L Total Protein (6.4-8.2) g/dL Albumin (3.4-5.0) g/dL Globulin Albumin/Globulin Ratio Ethyl Alcohol < 3 (0) mg/dL Meds: Medications Generic Name Dose Route Start Last Admin Trade Name Freq PRN Reason Stop Dose Admin Sodium Chloride 10 ml 07/06/20 19:41 07/06/20 19:54 Sodium Chloride 0.9% 10 Ml Syringe FLUSH 10 ml ASDIRECTED PRN Administration Keep Vein Open Discontinued Medications Generic Name Dose Route Start Last Admin Trade Name Freq PRN Reason Stop Dose Admin Fentanyl 50 mcg 07/06/20 19:41 07/06/20 19:52 Fentanyl 100 Mcg/2 Ml Sdv IVPUSH 07/06/20 19:42 50 mcg ONETIME ONE Administration Fentanyl 100 mcg 07/06/20 20:27 07/06/20 20:33 Fentanyl 100 Mcg/2 Ml Sdv IVPUSH 07/06/20 20:28 100 mcg ONETIME ONE Administration Sodium Chloride 1,000 mls @ 999 mls/hr 07/06/20 19:41 07/06/20 20:16 Normal Saline IV 07/06/20 20:41 999 mls/hr .BOLUS ONE Administration - Radiology Interpretation Free Text/Narrative:: CR Shoulder: Osseous irregularity at the acromion may represent osteophytic spurring. Possibility of a fracture not excluded. If there is a strong index of suspicion for acromial fracture further evaluation with CT imaging suggested. CT neck: degenerative spondylosis. No acute findings CT Head: Small density demonstrated in the region of the dentate nucleus of the right cerebellar hemisphere may represent calcification. There is a small possibility of hemorrhage although considered to be less likely. Further evaluation with thin section CT imaging as well as follow up evaluation sug gested. Addendum CT Head: Thin-section CT images were sent for further evaluation. These images confirm the presence of a 6 mm high density focus in the regoin of the right dentate nucleus. This is almost certainly due to calcification rather than hemorrhage. A repeat head CT in 4-6 hours could be obtained to recheck the finding if there is strong clinical concern for hemorrhage. Departure - Departure Time of Disposition: 21:52 Disposition: Home, Self-Care 01 Clinical Impression: Right shoulder strain Qualifiers: Encounter type: initial encounter Qualified Code(s): S46.911A - Strain of unspecified muscle, fascia and tendon at shoulder and upper arm level, right arm, initial encounter Acute whiplash injury Qualifiers: Encounter type: initial encounter Qualified Code(s): S13.4XXA - Sprain of ligaments of cervical spine, initial encounter - Discharge Information Instructions: Cervical Strain and Sprain Rehab-[facility] Forms: ED Department Discharge Additional Instructions: Flexeril 10 mg QHS/PRN for muscle spasms OTC medications and ice as needed for the pain Sling for comfort. If shoulder pain persists or worsens, may need further imaging with CT shoulder Follow up with PCP in 5-7 days - My Orders Last 24 Hours: My Active Orders 07/06/20 19:33 EKG Documentation Completion [RC] STAT 07/06/20 19:41 Sodium Chloride 0.9% [Saline Flush] 10 ml FLUSH ASDIRECTED PRN Peripheral IV Insertion Adult [OM.PC] Stat 07/06/20 19:42 Peripheral IV Care [RC] . DIRECTED - Assessment/Plan Last 24 Hours: My Active Orders 07/06/20 19:33 EKG Documentation Completion [RC] STAT 07/06/20 19:41 Sodium Chloride 0.9% [Saline Flush] 10 ml FLUSH ASDIRECTED PRN Peripheral IV Insertion Adult [OM.PC] Stat 07/06/20 19:42 Peripheral IV Care [RC] . DIRECTED
[2020-07-06] MEDS ORDERED: Sodium Chloride 0.9% 1,000 ML IV ONE (19:41)
[2020-07-06] MEDS ORDERED: Sodium Chloride 0.9% 10 ML Syringe FLUSH PRN (19:41)
[2020-07-06] MEDS ORDERED: fentaNYL 100 MCG/2 ML SDV IVPUSH ONE ×2 (19:41→20:27)
[2020-07-06 20:14] LABS: PTT,PARTIAL THROMBOPLSTIN TIME 23.5 SEC (22.0-34.0)
[2020-07-06 20:17] LABS: ANION GAP 14.2 mEq/L (7-13); CHLORIDE,CL 101 mmol/L (98-107); SODIUM,NA 137 mmol/L (136-145)
--- NOTE | 2020-07-06 20:22 | CR ---
PROCEDURE INFORMATION: Exam: XR Right Shoulder Exam date and time: 07/06/2020 8:07 PM Age: 55 years old Clinical indication: Other: Fell 4 feet/pain; Additional info: Shoulder injury TECHNIQUE: Imaging protocol: XR Right shoulder. Views: 2 or more views. COMPARISON: No relevant prior studies available. FINDINGS: Bones/joints: Degenerative changes in the acromioclavicular joint. Osseous irregularity at the acromion may represent osteophytic spurring. Possibility of a fracture not excluded. If there is a strong index of suspicion for acromial fracture further evaluation with CT imaging suggested. Soft tissues: Normal. IMPRESSION: Osseous irregularity at the acromion may represent osteophytic spurring. Possibility of a fracture not excluded. If there is a strong index of suspicion for acromial fracture further evaluation with CT imaging suggested.
--- NOTE | 2020-07-06 20:25 | CT ---
PROCEDURE INFORMATION: Exam: CT Head Without Contrast Exam date and time: 07/06/2020 7:54 PM Age: 55 years old Clinical indication: Other: Fell 4 feet/pain--on blood thinners; Additional info: Head injury TECHNIQUE: Imaging protocol: Computed tomography of the head without contrast. Radiation optimization: All CT scans at this facility use at least one of these dose optimization techniques: automated exposure control; mA and/or kV adjustment per patient size (includes targeted exams where dose is matched to clinical indication); or iterative reconstruction. COMPARISON: MR Brain wo Cont 07/24/2019 9:43 AM FINDINGS: Brain: Small density demonstrated in the region of the dentate nucleus of the right cerebellar hemisphere may represent calcification. There is a small possibility of hemorrhage although considered to be less likely. Further evaluation with thin section CT imaging as well as follow-up evaluation suggested. Minimal bilateral basal ganglia calcifications. Cerebral ventricles: No ventriculomegaly. Bones/joints: Unremarkable. No acute fracture. Paranasal sinuses: Visualized sinuses are unremarkable. No fluid levels. Mastoid air cells: Visualized mastoid air cells are well aerated. Soft tissues: Unremarkable. IMPRESSION: Small density demonstrated in the region of the dentate nucleus of the right cerebellar hemisphere may represent calcification. There is a small possibility of hemorrhage although considered to be less likely. Further evaluation with thin section CT imaging as well as follow-up evaluation suggested.
--- NOTE | 2020-07-06 20:30 | CT ---
PROCEDURE INFORMATION: Exam: CT Cervical Spine Without Contrast Exam date and time: 07/06/2020 7:54 PM Age: 55 years old Clinical indication: Other: Fell 4 feet/pain; Additional info: Head injury TECHNIQUE: Imaging protocol: Computed tomography images of the cervical spine without contrast. Radiation optimization: All CT scans at this facility use at least one of these dose optimization techniques: automated exposure control; mA and/or kV adjustment per patient size (includes targeted exams where dose is matched to clinical indication); or iterative reconstruction. COMPARISON: No relevant prior studies available. FINDINGS: Bones/joints: No acute fracture. Mild straightening of cervical lordosis. Otherwise normal alignment. Discs/Spinal canal/Neural foramina: Disc space narrowing throughout the cervical spine most pronounced at C3-C4, C4-C5, C5-C6 and C6-C7 with intervertebral osteophytes. Lungs: Lung apices are normal. Soft tissues: Unremarkable. IMPRESSION: Degenerative spondylosis. No acute findings.
[2020-07-06] MEDS ORDERED: Cyclobenzaprine 10 MG Tab ONE (21:51)
== END 2020-07-06 22:09 | disposition home or self-care (01) ==
LOC: DL.ED 19:14
DX: S46.911A Strain of unspecified muscle, fascia and tendon at shoulder and upper arm level, right arm, initial encounter (principal); S13.4XXA Sprain of ligaments of cervical spine, initial encounter; S00.01XA Abrasion of scalp, initial encounter; S80.812A Abrasion, left lower leg, initial encounter; E11.9 Type 2 diabetes mellitus without complications; E66.9 Obesity, unspecified; I48.91 Unspecified atrial fibrillation; N40.0 Benign prostatic hyperplasia without lower urinary tract symptoms; I25.10 Atherosclerotic heart disease of native coronary artery without angina pectoris; I11.0 Hypertensive heart disease with heart failure; I50.9 Heart failure, unspecified; I25.2 Old myocardial infarction; K21.9 Gastro-esophageal reflux disease without esophagitis; Z88.8 Allergy status to other drugs, medicaments and biological substances; Z88.5 Allergy status to narcotic agent; Z91.041 Radiographic dye allergy status; Z79.02 Long term (current) use of antithrombotics/antiplatelets; Z79.4 Long term (current) use of insulin; Z79.01 Long term (current) use of anticoagulants; Z79.899 Other long term (current) drug therapy; Z95.5 Presence of coronary angioplasty implant and graft; W17.89XA Other fall from one level to another, initial encounter
CPT/HCPCS: 36415; 70450; 72125; 73030-RT; 80053; 80307; 85025; 85610; 85730; 93005; 96374; 96376; 99284-25; A9270-GY; J3010; J7030

== ENCOUNTER 2021-01-16 12:37 | Emergency (ER) | payer OTHER ==
--- NOTE | 2021-01-16 13:21 | EDM.PDOC ---
ED HPI GENERAL MEDICAL PROBLEM - General Stated Complaint: ALOT OF TROUBLE BREATHING / 2 NEG COVID TESTS Time Seen by Provider: 01/16/21 13:10 Source of Information: Reports: Patient, Old Records, Provider (EDDIE Morris at [facility]), RN, RN Notes Reviewed History Limitations: Reports: No Limitations - History of Present Illness INITIAL COMMENTS - FREE TEXT/NARRATIVE: Armin is a 55 y/o male with a history of Afib anticoagulated with Plavix and Eliquis, CAD with cardiac stents, HTN, and CKD, who presents to the ED at the request of his PCP at [facility] for persistent shortness of breath, dry co ugh, and chest tightness. Per provider report, the patient received a COVID test one week ago, which was negative, therefore he was started on a Z-pack. He presented to the clinic today with c/o described above, and again tested negative for COVID. Additionally, he notes shaking chills, nausea with one bout of emesis, and diarrhea. He completed his Z-pack as well as transient doses of DayQuil. He attest to a remote history of tobacco use with a quit date 10+ years prior; he denies alcohol and recreational drug use. - Related Data Allergies Allergy/AdvReac Type Severity Reaction Status Date / Time lisinopril Allergy Severe Anaphylactic Verified 01/16/21 13:12 Shock morphine Allergy Severe Hives Verified 01/16/21 13:12 contrast dye Allergy Severe Other Uncoded 01/16/21 13:12 Home Meds: Home Meds Clopidogrel Bisulfate [Clopidogrel] 75 mg PO DAILY 07/29/19 [History] Escitalopram [Lexapro] 10 mg PO BEDTIME 07/29/19 [History] Furosemide 40 mg PO BID 07/29/19 [History] Insulin Asp Prot/Insulin Asp [NovoLOG Mix 70-30] See Protocol SQ BID 07/29/19 [History] LORazepam [Lorazepam] 1 mg PO BEDTIME 07/29/19 [History] Potassium Chloride 20 meq PO DAILY 07/29/19 [History] Rosuvastatin Calcium 40 mg PO BEDTIME 07/29/19 [History] Tamsulosin HCl 0.4 mg PO BEDTIME 07/29/19 [History] carvediloL [Carvedilol] 25 mg PO BID 07/29/19 [History] Insulin Detemir [Levemir Flextouch] 25 units SUBCUT BID 10/26/19 [History] Apixaban [Eliquis] 5 mg PO BID 11/08/19 [History] Cholecalciferol (Vitamin D3) [Vitamin D3] 10 mcg PO BID 11/08/19 [History] Fluticasone Propionate [Flovent] 1 spray INH DAILY PRN 11/08/19 [History] Multivitamin [Multivitamins] 1 tab PO DAILY 11/08/19 [History] Nitroglycerin 0.4 mg PO .[id number] PRN 11/08/19 [History] Pantoprazole Sodium [Protonix] 40 mg PO DAILY 11/08/19 [History] amLODIPine Besylate [Amlodipine Besylate] 5 mg PO DAILY 11/08/19 [History] Past Medical History HEENT History: Reports: Allergic Rhinitis, Impaired Vision Other HEENT History: wears glasses Cardiovascular History: Reports: Afib, Angina, CAD, Heart Failure, High Cholesterol, Hypertension, [place], Stents Respiratory History: Reports: Pneumonia, Recurrent, Sleep Apnea, SOB Gastrointestinal History: Reports: Cholelithiasis, Diverticulosis, GERD Genitourinary History: Reports: BPH, Prostate Disorder Musculoskeletal History: Reports: Arthritis, Back Pain, Chronic Neurological History: Reports: None Psychiatric History: Reports: Anxiety Endocrine/Metabolic History: Reports: Diabetes, Type II, IDDM, Obesity/BMI 30+ Hematologic History: Reports: Anemia Immunologic History: Reports: None Oncologic (Cancer) History: Reports: Other (See Below) Other Oncologic History: Lymphatic and testicular Dermatologic History: Reports: None - Infectious Disease History Infectious Disease History: Reports: Chicken Pox, Influenza, MRSA, Novel Coronavirus - Past Surgical History Head Surgeries/Procedures: Reports: None HEENT Surgical History: Reports: None Cardiovascular Surgical History: Reports: Coronary Artery Stent GI Surgical History: Reports: Appendectomy, Cholecystectomy Male Surgical History: Reports: Other (See Below) Other Male Surgeries/Procedures: left testicle removed Endocrine Surgical History: Reports: None Musculoskeletal Surgical History: Reports: Other (See Below) Other Musculoskeletal Surgeries/Procedures:: Back and neck injections for chronic pain. Left hand carpal tunnel surgery Oncologic Surgical History: Reports: None Social & Family History - Family History Family Medical History: No Pertinent Family History - Caffeine Use Caffeine Use: Reports: Soda - Living Situation & Occupation Living situation: Reports: Single, Alone ED ROS GENERAL - Review of Systems Review Of Systems: Comprehensive ROS is negative, except as noted in HPI. ED EXAM, GENERAL - Physical Exam Exam: See Below Exam Limited By: No Limitations General Appearance: Alert, No Apparent Distress Eye Exam: Bilateral Eye: EOMI, PERRL (3mm) Ears: Normal External Exam, Normal Canal, Hearing Grossly Normal, Normal TMs Ear Exam: Bilateral Ear: Auricle Normal, Canal Normal, TM normal Nose: Normal Inspection, Normal Mucosa, No Blood Throat/Mouth: Normal Inspection, Normal Oropharynx, Normal Voice, No Airway Compromise Head: Atraumatic, Normocephalic Neck: Normal Inspection, Supple, Non-Tender, Full Range of Motion. No: Lymphadenopathy (L), Lymphadenopathy (R) Respiratory/Chest: No Respiratory Distress, No Accessory Muscle Use, Rales (To bilateral lower lobes), Rhonchi (Diffuse ). No: Chest Non-Tender (Chest pressure with breathing), Stridor, Pleural Rub, Retractions Cardiovascular: Normal Peripheral Pulses, Regular Rate, Rhythm, No Edema, No Gallop, No JVD, No Murmur, No Rub Peripheral Pulses: 2+: Radial (L), Radial (R) GI/Abdominal: Normal Bowel Sounds, Soft, Non-Tender, No Distention, No Abnormal Bruit, No Mass, Pelvis Stable (Male) Exam: Deferred Rectal (Males) Exam: Deferred Back Exam: Normal Inspection, Full Range of Motion Extremities: Normal Inspection, Normal Range of Motion, Non-Tender, No Pedal Edema, Normal Capillary Refill Neurological: Alert, Oriented, CN II-XII Intact, Normal Cognition, Normal Gait, No Motor/Sensory Deficits Psychiatric: Normal Affect, Normal Mood Skin Exam: Warm, Dry, Intact, Normal Color, No Rash. No: Cyanosis, Jaundice, Mottled, Pallor Course - Vital Signs Last Recorded V/S: Last Vital Signs Temp 98.4 F 01/16/21 13:21 Pulse 94 01/16/21 13:21 Resp 18 01/16/21 13:21 BP 111/74 01/16/21 13:21 Pulse Ox 100 01/16/21 13:21 - Orders/Labs/Meds Orders: Active Orders 24 hr Category Date Time Status Isolation [COMM] Routine Oth 01/16/21 14:59 Active Labs: Laboratory Tests 01/16/21 01/16/21 01/16/21 Range/Units 13:24 13:24 13:24 WBC 12.5 H (5.0-10.0) 10^3/uL RBC 5.53 (4.6-6.2) 10^6/uL Hgb 14.0 D (14.0-18.0) g/dL Hct 42.9 (40.0-54.0) % MCV 77.6 L (80-100) fL MCH 25.3 L (27.0-34.0) pg MCHC 32.6 L (33.0-35.0) g/dL Plt Count 390 (150-450) 10^3/uL Neut % (Auto) 75.2 (42.2-75.2) % Lymph % (Auto) 17.0 L (20.5-50.1) % [place] % (Auto) 6.1 (2-8) % Eos % (Auto) 1.3 (1.0-3.0) % Baso % (Auto) 0.4 (0.0-1.0) % PT 10.7 (9.0-12.0) SEC INR 1.1 (0.9-1.2) APTT 26.8 (22.0-34.0) SEC Sodium 136 (136-145) mmol/L Potassium 3.9 (3.5-5.1) mmol/L Chloride 95 L (98-107) mmol/L Carbon Dioxide 26 (21-32) mmol/L Anion Gap 18.9 H (7-13) mEq/L BUN 62 H (7-18) mg/dL Creatinine 3.93 H D (0.70-1.30) mg/dL Est Cr Clr Drug Dosing 18.04 mL/min Estimated GFR (MDRD) 16 BUN/Creatinine Ratio 15.8 (No establ ref range) Glucose 227 H (70-99) mg/dL Lactic Acid (0.4-2.0) mmol/L Calcium 9.1 (8.5-10.1) mg/dL Magnesium 1.9 (1.8-2.4) mg/dL Total Bilirubin 0.4 (0.2-1.0) mg/dL AST 14 L (15-37) U/L ALT 22 (16-63) U/L Alkaline Phosphatase 106 (46-116) U/L Troponin I High Sens 47 (<=76) pg/mL C-Reactive Protein 0.2 (0.0-0.9) mg/dL B-Natriuretic Peptide (0-100) pg/ml Total Protein 7.4 (6.4-8.2) g/dL Albumin 2.8 L (3.4-5.0) g/dL Globulin 4.6 Albumin/Globulin Ratio 0.61 Ethyl Alcohol < 3 (0) mg/dL 01/16/21 01/16/21 Range/Units 13:24 13:24 WBC (5.0-10.0) 10^3/uL RBC (4.6-6.2) 10^6/uL Hgb (14.0-18.0) g/dL Hct (40.0-54.0) % MCV (80-100) fL MCH (27.0-34.0) pg MCHC (33.0-35.0) g/dL Plt Count (150-450) 10^3/uL Neut % (Auto) (42.2-75.2) % Lymph % (Auto) (20.5-50.1) % [place] % (Auto) (2-8) % Eos % (Auto) (1.0-3.0) % Baso % (Auto) (0.0-1.0) % PT (9.0-12.0) SEC INR (0.9-1.2) APTT (22.0-34.0) SEC Sodium (136-145) mmol/L Potassium (3.5-5.1) mmol/L Chloride (98-107) mmol/L Carbon Dioxide (21-32) mmol/L Anion Gap (7-13) mEq/L BUN (7-18) mg/dL Creatinine (0.70-1.30) mg/dL Est Cr Clr Drug Dosing mL/min Estimated GFR (MDRD) BUN/Creatinine Ratio (No establ ref range) Glucose (70-99) mg/dL Lactic Acid 1.4 (0.4-2.0) mmol/L Calcium (8.5-10.1) mg/dL Magnesium (1.8-2.4) mg/dL Total Bilirubin (0.2-1.0) mg/dL AST (15-37) U/L ALT (16-63) U/L Alkaline Phosphatase (46-116) U/L Troponin I High Sens (<=76) pg/mL C-Reactive Protein (0.0-0.9) mg/dL B-Natriuretic Peptide 58 (0-100) pg/ml Total Protein (6.4-8.2) g/dL Albumin (3.4-5.0) g/dL Globulin Albumin/Globulin Ratio Ethyl Alcohol (0) mg/dL Meds: Medications Discontinued Medications Generic Name Dose Route Start Last Admin Trade Name Freq PRN Reason Stop Dose Admin Sodium Chloride 1,000 mls @ 999 mls/hr 01/16/21 13:40 01/16/21 13:53 Normal Saline IV 01/16/21 14:40 999 mls/hr .BOLUS ONE Administration Methylprednisolone Sodium Succinate 125 mg 01/16/21 14:51 Methylprednisolone Sodium Succinate 125 Mg/2 Ml Sdv IVPUSH 01/16/21 14:52 ONETIME ONE - Radiology Interpretation Free Text/Narrative:: [facility] Final Radiology Report Call: [phone] assistance Online chat: [email or web address] Name: ARMIN BROOKS Age: 55Years M Date: 01/16/2021 SSN: -- : [id number] Study: CR CHEST 2V Requesting Physician: Maria Luisa Rodriguez Images: 2 Addl Studies: Provided Clinical History: Diffuse rhonchi; Dry cough; COVID negative Contrast: Contrast Medium: Contrast Amount: Contrast Method: CONFIDENTIALITY STATEMENT This report is intended only for use by the referring physician, and only in accordance with law. If you received this in error, call [phone]. Page 1 of 1 PROCEDURE INFORMATION: Exam: XR Chest Exam date and time: 01/16/2021 2:11 PM Age: 55 years old Clinical indication: Cough; Additional info: Diffuse rhonchi; Dry cough; Covid negative TECHNIQUE: Imaging protocol: XR of the chest. Views: 2 views. COMPARISON: CR Chest 1V Frontal 02/19/2020 10:54 PM FINDINGS: Lungs: Unremarkable. No consolidation. Pleural spaces: Unremarkable. No pleural effusion. No pneumothorax. Heart/Mediastinum: Unremarkable. No cardiomegaly. Bones/joints: Marginal osteophytes are noted at multiple levels in the spine. Unremarkable. IMPRESSION: No acute findings. Thank you for allowing us to participate in the care of your patient. Dictated and Authenticated by: Chano Luevano MD 01/16/2021 2:34 PM Central Time ([place] & [place]) - Re-Assessments/Exams Free Text/Narrative Re-Assessment/Exam: 01/16/21 CXR obtained while labs pending. Findings of examination, lab work, and imaging reviewed with patient. Production Clerk obtained appointment with patient's instructor nurse for kidney function. Supportive cares for viral URI reviewed. Patient instructed to follow up with primary care provider regarding todays visit. Red flag signs and symptoms which would warrant immediate reevaluation reviewed. Patient verbalized underst anding and agreement with the plan of care. Departure - Departure Time of Disposition: 16:05 Disposition: Home, Self-Care 01 Condition: Fair (acute on chronic kidney ) Clinical Impression: Viral upper respiratory infection Chronic kidney disease Qualifiers: Chronic kidney disease stage: unspecified stage Qualified Code(s): N18.9 - Chronic kidney disease, unspecified - Discharge Information *PRESCRIPTION DRUG MONITORING PROGRAM REVIEWED*: Not Applicable *COPY OF PRESCRIPTION DRUG MONITORING REPORT IN PATIENT [place]: Not Applicable Instructions: Viral Respiratory Infection, [id number] Referrals: Laura Hoffman NP [Primary Care Provider] - Forms: ED Department Discharge Additional Instructions: Rx: Tessalon Perles 100mg (#21) 1.) Follow up with your instructor nurse, an appointment has been made for you with Dr. Solano for 01/24/21 at 1pm 2.) Continue on your previously prescribed medications. 3.) Drink small, frequent sips of water to stay hydrated. 4.) Follow up with your primary care provider regarding today's visit. - My Orders Last 24 Hours: My Active Orders 01/16/21 14:59 Isolation [COMM] Routine - Assessment/Plan Last 24 Hours: My Active Orders 01/16/21 14:59 Isolation [COMM] Routine
[2021-01-16] MEDS ORDERED: Sodium Chloride 0.9% 1,000 ML IV ONE (13:40)
[2021-01-16 13:51] LABS: PTT,PARTIAL THROMBOPLSTIN TIME 26.8 SEC (22.0-34.0)
[2021-01-16 13:55] LABS: ANION GAP 18.9 mEq/L (7-13); CHLORIDE,CL 95 mmol/L (98-107); SODIUM,NA 136 mmol/L (136-145)
--- NOTE | 2021-01-16 14:34 | CR ---
PROCEDURE INFORMATION: Exam: XR Chest Exam date and time: 01/16/2021 2:11 PM Age: 55 years old Clinical indication: Cough; Additional info: Diffuse rhonchi; Dry cough; Covid negative TECHNIQUE: Imaging protocol: XR of the chest. Views: 2 views. COMPARISON: CR Chest 1V Frontal 02/19/2020 10:54 PM FINDINGS: Lungs: Unremarkable. No consolidation. Pleural spaces: Unremarkable. No pleural effusion. No pneumothorax. Heart/Mediastinum: Unremarkable. No cardiomegaly. Bones/joints: Marginal osteophytes are noted at multiple levels in the spine. Unremarkable. IMPRESSION: No acute findings.
[2021-01-16] MEDS ORDERED: methylPREDNISolone Sodium Succinate 125 MG/2 ML SDV IVPUSH ONE (14:51)
== END 2021-01-16 16:40 | disposition home or self-care (01) ==
LOC: DL.ED 12:37
DX: J06.9 Acute upper respiratory infection, unspecified (principal); I13.0 Hypertensive heart and chronic kidney disease with heart failure and stage 1 through stage 4 chronic kidney disease, or unspecified chronic kidney disease; E11.22 Type 2 diabetes mellitus with diabetic chronic kidney disease; N18.9 Chronic kidney disease, unspecified; I50.9 Heart failure, unspecified; I48.91 Unspecified atrial fibrillation; I25.119 Atherosclerotic heart disease of native coronary artery with unspecified angina pectoris; E78.00 Pure hypercholesterolemia, unspecified; I25.2 Old myocardial infarction; K21.9 Gastro-esophageal reflux disease without esophagitis; N40.0 Benign prostatic hyperplasia without lower urinary tract symptoms; M19.90 Unspecified osteoarthritis, unspecified site; E11.9 Type 2 diabetes mellitus without complications; E66.9 Obesity, unspecified; Z68.35 Body mass index [BMI] 35.0-35.9, adult; Z88.8 Allergy status to other drugs, medicaments and biological substances; Z88.5 Allergy status to narcotic agent; Z91.041 Radiographic dye allergy status; Z79.02 Long term (current) use of antithrombotics/antiplatelets; Z79.4 Long term (current) use of insulin; Z79.01 Long term (current) use of anticoagulants; Z79.899 Other long term (current) drug therapy
CPT/HCPCS: 36415; 71046; 80053; 80307; 83605; 83735; 83880; 84484; 85025; 85610; 85730; 86140; 87804; 99283; J7030

== ENCOUNTER 2022-05-29 04:59 | Day surgery (SDC) | payer BC, OTHER ==
[2022-05-29] MEDS ORDERED: Midazolam 1 MG/ML 2 ML SDV IV ONE ×4 (05:00→06:35)
[2022-05-29] MEDS ORDERED: fentaNYL 100 MCG/2 ML SDV IV ONE ×3 (05:00→06:34)
[2022-05-29] MEDS ORDERED: Dextrose 5%-0.45% NaCl 1,000 ML IV SCH (06:00)
[2022-05-29] MEDS ORDERED: Sodium Chloride 0.9% 10 ML Syringe FLUSH PRN (06:00)
[2022-05-29] MEDS ORDERED: Midazolam 1 MG/ML 2 ML SDV ONE (06:26)
[2022-05-29] MEDS ORDERED: fentaNYL 100 MCG/2 ML SDV ONE (06:26)
[2022-05-29] MEDS ORDERED: Sodium Chloride 0.9% 10 ML Syringe FLUSH SCH (09:00)
== END 2022-05-29 08:40 | disposition home or self-care (01) ==
LOC: DL.ENDO 04:59
PROVIDERS: ATTEND Internal Medicine Gastroenterology
DX: Z12.11 Encounter for screening for malignant neoplasm of colon (principal); D12.3 Benign neoplasm of transverse colon; K51.40 Inflammatory polyps of colon without complications; E78.5 Hyperlipidemia, unspecified; F41.1 Generalized anxiety disorder; E66.09 Other obesity due to excess calories; I48.0 Paroxysmal atrial fibrillation; I13.10 Hypertensive heart and chronic kidney disease without heart failure, with stage 1 through stage 4 chronic kidney disease, or unspecified chronic kidney disease; I43 Cardiomyopathy in diseases classified elsewhere; E11.22 Type 2 diabetes mellitus with diabetic chronic kidney disease; N18.9 Chronic kidney disease, unspecified; Z90.49 Acquired absence of other specified parts of digestive tract; Z68.37 Body mass index [BMI] 37.0-37.9, adult
CPT/HCPCS: J2250; J3010; J7042

== ENCOUNTER 2023-02-05 17:42 | Emergency (ER) | payer BC ==
[2023-02-05 18:04] LABS: APPEARANCE,URINE CLEAR (CLEAR); BILIRUBIN,URINE NEGATIVE (NEGATIVE); COLOR,URINE YELLOW (YELLOW); GLUCOSE,URINE 500 (NEGATIVE); KETONES,URINE NEGATIVE (NEGATIVE); LEUKOCYTE ESTERASE,URINE NEGATIVE (NEGATIVE); NITRITE,URINE NEGATIVE (NEGATIVE); OCCULT BLOOD,URINE SMALL (NEGATIVE); PROTEIN,URINE >=300 (NEGATIVE); UROBILINOGEN,URINE 0.2 mg/dL (0.2-1.0)
[2023-02-05] MEDS ORDERED: Sodium Chloride 0.9% 10 ML Syringe FLUSH PRN (18:05)
[2023-02-05 18:16] LABS: BACTERIA,URINE FEW /HPF (0-FEW/HPF); EPITHELIAL CELLS,URINE FEW /HPF (NOT SEEN)
[2023-02-05 18:25] LABS: HEMATOCRIT 37.9 % (40.0-54.0); HEMOGLOBIN 11.9 g/dL (14.0-18.0); MEAN CORPUSCULAR HEMOGLOBIN 26.5 pg (27.0-34.0); MEAN CORPUSCULAR HGB CONC 31.4 g/dL (33.0-35.0); MEAN CORPUSCULAR VOLUME 84.4 fL (80-100); PLATELET COUNT,PLT 344 10^3/uL (150-450); RED BLOOD CELL COUNT 4.49 10^6/uL (4.6-6.2)
[2023-02-05 18:30] LABS: LYMPHOCYTES PERCENT AUTO 11.7 % (20.5-50.1); MONOCYTES PERCENT AUTO 7.9 % (2-8); NEUTROPHILS PERCENT AUTO 77.4 % (42.2-75.2)
[2023-02-05 18:31] LABS: BASOPHILS PERCENT AUTO 0.5 % (0.0-1.0); EOSINOPHILS PERCENT AUTO 2.5 % (1.0-3.0)
[2023-02-05 18:42] LABS: ALBUMIN 2.5 g/dL (3.4-5.0); ANION GAP 11.8 mEq/L (7-13); BILIRUBIN TOTAL 0.3 mg/dL (0.2-1.0); BUN/CREATININE RATIO 14.3 (No establ ref range); C-REACTIVE PROTEIN 1.89 ng/dL (<=0.50); CALCIUM 8.3 mg/dL (8.5-10.1); EST CRCL DRUG DOSING (CG) 14.02 mL/min; POTASSIUM,K 3.8 mmol/L (3.5-5.1); PROTEIN TOTAL,TP 6.9 g/dL (6.4-8.2)
[2023-02-05 18:45] LABS: A/G RATIO 0.57; CREATININE 5.12 mg/dL (0.70-1.30); LACTIC ACID 0.7 mmol/L (0.4-2.0)
[2023-02-05] MEDS ORDERED: Sodium Chloride 0.9% 1,000 ML IV ONE (18:46)
[2023-02-05 18:52] LABS: EOSINOPHILS PERCENT MAN 1 % (1-3); LYMPHOCYTES PERCENT MAN 8 % (20-50); MONOCYTES PERCENT MAN 6 % (2-8); SEG NEUTROPHILS PERCENT MAN 85 % (42-75)
[2023-02-05] MEDS: Sulfamethoxazole/Trimethoprim 800-160 MG Tab PO ONE ×2 (20:06→20:31)
== END 2023-02-05 20:33 | disposition home or self-care (01) ==
LOC: DL.ED 17:42
DX: N41.0 Acute prostatitis (principal); E11.9 Type 2 diabetes mellitus without complications; E78.5 Hyperlipidemia, unspecified; I12.0 Hypertensive chronic kidney disease with stage 5 chronic kidney disease or end stage renal disease; I13.0 Hypertensive heart and chronic kidney disease with heart failure and stage 1 through stage 4 chronic kidney disease, or unspecified chronic kidney disease; N18.5 Chronic kidney disease, stage 5; I50.9 Heart failure, unspecified; I25.10 Atherosclerotic heart disease of native coronary artery without angina pectoris; Z95.1 Presence of aortocoronary bypass graft; Z88.1 Allergy status to other antibiotic agents; E66.9 Obesity, unspecified; Z88.5 Allergy status to narcotic agent; Z88.8 Allergy status to other drugs, medicaments and biological substances; Z91.041 Radiographic dye allergy status; Z86.16 Personal history of COVID-19; Z79.4 Long term (current) use of insulin; Z79.899 Other long term (current) drug therapy; Z68.36 Body mass index [BMI] 36.0-36.9, adult; Z90.49 Acquired absence of other specified parts of digestive tract
CPT/HCPCS: 36415; 74176; 80053; 81001; 83605; 85025; 86140; 96360; 99284; 99284-25; A9270-GY; J3490; J7030

== ENCOUNTER 2024-01-16 09:33 | Emergency (ER) | payer BC ==
[2024-01-16 08:35] LABS: BASOPHILS PERCENT AUTO 0.1 % (0.0-1.0); HEMATOCRIT 33.6 % (40.0-54.0); HEMOGLOBIN 10.7 g/dL (14.0-18.0); LYMPHOCYTES PERCENT AUTO 1.2 % (20.5-50.1); MEAN CORPUSCULAR HEMOGLOBIN 24.3 pg (27.0-34.0); MEAN CORPUSCULAR HGB CONC 31.8 g/dL (33.0-35.0); MEAN CORPUSCULAR VOLUME 76.4 fL (80-100); MONOCYTES PERCENT AUTO 4.7 % (2-8); PLATELET COUNT,PLT 184 10^3/uL (150-450); WHITE BLOOD CELL COUNT,WBC 14.2 10^3/uL (5.0-10.0)
[2024-01-16] MEDS: fentaNYL 500 MCG in Sodium Chloride 0.9% 50 ML IV ONE (08:37)
[2024-01-16 08:52] LABS: ALANINE AMINOTRANSFERASE,ALT 29 U/L (16-63); ALKALINE PHOSPHATASE 68 U/L (46-116); ANION GAP 15.3 mEq/L (7-13); ASPARTATE AMNIOTRANSFERASE,AST 56 U/L (15-37); BILIRUBIN TOTAL 0.9 mg/dL (0.2-1.0); BLOOD UREA NITROGEN,BUN 78 mg/dL (7-18); BUN/CREATININE RATIO 12.6 (No establ ref range); CALCIUM 8.5 mg/dL (8.5-10.1); CARBON DIOXIDE,CO2 27 mmol/L (21-32); CHLORIDE,CL 86 mmol/L (98-107); EST CRCL DRUG DOSING (CG) 11.43 mL/min; GLUCOSE RANDOM 247 mg/dL (70-99); POTASSIUM,K 3.3 mmol/L (3.5-5.1); PROTEIN TOTAL,TP 6.1 g/dL (6.4-8.2); SODIUM,NA 125 mmol/L (136-145)
[2024-01-16 08:58] LABS: A/G RATIO 0.49; ESTIMATED GFR 10 mL/min (>=60)
[2024-01-16 08:59] LABS: C-REACTIVE PROTEIN > 25.00 ng/dL (<=0.50)
[2024-01-16] MEDS: fentaNYL 100 MCG/2 ML SDV IVPUSH ONE (08:59)
[2024-01-16] MEDS: Sodium Chloride 0.9% 1,000 ML IV ONE (09:08)
[2024-01-16] MEDS: Piperacillin/Tazobactam 2.25 GM in Sodium Chloride 0.9% 50 ML IV ONE (09:08)
[2024-01-16] MEDS ORDERED: Midazolam 1 MG/ML 2 ML SDV ONE (09:43)
[2024-01-16] MEDS ORDERED: Norepinephrine Bit/D5W Premix 250 ML ONE (09:46)
[2024-01-16] MEDS: Amiodarone 150 MG/3 ML SDV IVPUSH ONE (09:47)
[2024-01-16] MEDS ORDERED: Magnesium Sulfate/D5W 1 GM/100 ML BAG IV ONE (10:00)
[2024-01-16] MEDS ORDERED: Amiodarone In Dextrose,Iso-Osm 200 ML IV SCH (10:15)
[2024-01-16] MEDS: Magnesium Sulfate/Water Premix 2 GM in Premix Bag 1 BAG IV ONE (10:17)
[2024-01-16] MEDS: Magnesium Sulfate/Water Premix 50 ML ONE (10:18)
[2024-01-16] MEDS: Amiodarone In Dextrose,Iso-Osm 360 MG in Premix Bag 1 BAG IV SCH (10:20)
[2024-01-16 10:28] LABS: MAGNESIUM 1.6 mg/dL (1.8-2.4)
[2024-01-16 10:45] LABS: APPEARANCE,URINE CLEAR (CLEAR); BILIRUBIN,URINE NEGATIVE (NEGATIVE); COLOR,URINE YELLOW (YELLOW); GLUCOSE,URINE 500 (NEGATIVE); KETONES,URINE NEGATIVE (NEGATIVE); LEUKOCYTE ESTERASE,URINE NEGATIVE (NEGATIVE); NITRITE,URINE NEGATIVE (NEGATIVE); OCCULT BLOOD,URINE MODERATE (NEGATIVE); PH,URINE 6.5 (5.0-9.0); PROTEIN,URINE >=300 (NEGATIVE); UROBILINOGEN,URINE 0.2 mg/dL (0.2-1.0)
[2024-01-16 10:56] LABS: AMORPHOUS SEDIMENT,URINE FEW /HPF (NOT SEEN); BACTERIA,URINE FEW /HPF (0-FEW/HPF); EPITHELIAL CELLS,URINE FEW /HPF (NOT SEEN); HYALINE CASTS,URINE RARE; MUCUS,URINE FEW /LPF (NOT SEEN); WBC,URINE 0-5 /HPF (0-5/HPF)
== END 2024-01-16 11:11 | disposition other institution (70) ==
LOC: DL.ED 09:33
DX: K52.9 Noninfective gastroenteritis and colitis, unspecified (principal); K80.50 Calculus of bile duct without cholangitis or cholecystitis without obstruction; I47.20 Ventricular tachycardia, unspecified; E11.65 Type 2 diabetes mellitus with hyperglycemia; I13.2 Hypertensive heart and chronic kidney disease with heart failure and with stage 5 chronic kidney disease, or end stage renal disease; I50.9 Heart failure, unspecified; N18.5 Chronic kidney disease, stage 5; I25.10 Atherosclerotic heart disease of native coronary artery without angina pectoris; I25.2 Old myocardial infarction; I48.91 Unspecified atrial fibrillation; E78.00 Pure hypercholesterolemia, unspecified; E11.22 Type 2 diabetes mellitus with diabetic chronic kidney disease; E66.9 Obesity, unspecified; Z79.899 Other long term (current) drug therapy; Z79.4 Long term (current) use of insulin; Z79.51 Long term (current) use of inhaled steroids; Z79.01 Long term (current) use of anticoagulants; Z88.5 Allergy status to narcotic agent; Z91.041 Radiographic dye allergy status; Z88.1 Allergy status to other antibiotic agents; Z88.8 Allergy status to other drugs, medicaments and biological substances; Z68.33 Body mass index [BMI] 33.0-33.9, adult
CPT/HCPCS: 36415; 51702; 74176; 80053; 81001; 83605; 83735; 83880; 84484; 85025; 86140; 87040; 87077; 87186; 87428; 93005; 93010; 96361; 96365; 96367; 96368; 96375; 96376; 99285; J0282; J2543; J3010; J3475; J3490; J7030